=== PATIENT | male | born 1960 | race Caucasian/White ===

== ENCOUNTER 2016-11-20 00:56 | Emergency (ER) | payer SELFPAY ==
[2016-11-20 01:35] VITALS: BP 144/89
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
== END 2016-11-20 02:50 | disposition home or self-care (01) ==
LOC: ER 00:56
DX: F10.120 Alcohol abuse with intoxication, uncomplicated (principal); F17.200 Nicotine dependence, unspecified, uncomplicated; I10 Essential (primary) hypertension
CPT/HCPCS: 99283

== ENCOUNTER 2016-11-21 16:09 | Emergency (ER) | payer SELFPAY ==
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
[2016-11-21 16:56] LABS: APPEARANCE,URINE CLEAR; BILIRUBIN,URINE NEGATIVE (NEGATIVE); GLUCOSE, URINE NEGATIVE (NEGATIVE); KETONES,URINE NEGATIVE (NEGATIVE); LEUKOCYTE ESTERASE,URINE NEGATIVE (NEGATIVE); NITRITE,URINE NEGATIVE (NEGATIVE); PROTEIN,URINE NEGATIVE (NEGATIVE); URINE SPECIFIC GRAVITY 1.001; UROBILINOGEN,URINE NEGATIVE mg/dL (<2.0)
[2016-11-21 18:24] LABS: ABSOLUTE BASOPHILS # (AUTO) 0.1 10^3/uL (0.0-0.2); ABSOLUTE EOSINOPHILS # (AUTO) 0.2 10^3/uL (0.0-0.6); ABSOLUTE LYMPHOCYTES (AUTO) 2.6 10^3/uL (0.5-4.7); ABSOLUTE NEUT (AUTO) 5.4 10^3/uL (1.7-8.2); BASOPHILS % (AUTO) 0.7 % (0-2); EOSINOPHILS % (AUTO) 1.8 % (0-6); HEMATOCRIT 50.4 % (37.9-51.0); HEMOGLOBIN 17.2 g/dL (13.5-17.0); HGB HCT DIFFERENCE 1.2; LYMPHOCYTES % (AUTO) 28.6 % (13-45); MEAN CORPUSCULAR HEMOGLOBIN 33.4 pg (27.0-33.4); MEAN CORPUSCULAR HGB CONC 34.1 g/dL (32.0-36.0); MEAN CORPUSCULAR VOLUME 98 fl (80-97); MONOCYTES % (AUTO) 10.8 % (3-13); RED BLOOD COUNT 5.15 10^6/uL (4.35-5.55); RED CELL DISTRIBUTION WIDTH 14.8 % (11.5-14.0); SEGMENTED NEUTROPHILS % (AUTO) 58.1 % (42-78); WHITE BLOOD COUNT 9.3 10^3/uL (4.0-10.5)
[2016-11-21 18:39] LABS: ALANINE AMINOTRANSFERASE 111 U/L (21-72); ALCOHOL 133 mg/dL (NONE DETECTED); ALKALINE PHOSPHATASE 135 U/L (38-126); ANION GAP 16 (5-19); ASPARTATE AMINO TRANSFERASE 74 U/L (17-59); BILIRUBIN,TOTAL 0.7 mg/dL (0.2-1.3); BLOOD UREA NITROGEN 5 mg/dL (7-20); CALCIUM 10.1 mg/dL (8.4-10.2); CARBON DIOXIDE 26 mmol/L (22-30); CHLORIDE 102 mmol/L (98-107); CREATININE RESULT 0.82 mg/dL (0.52-1.25); GLUCOSE 90 mg/dL (75-110); POTASSIUM 4.4 mmol/L (3.6-5.0); SODIUM 143.9 mmol/L (137-145); TOTAL PROTEIN 8.2 g/dL (6.3-8.2)
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
[2016-11-21] MEDS ORDERED: ATENOLOL 50 MG TABLET PO SCH (22:00)
--- NOTE | 2016-11-22 08:26 | EKG REPORT ---
SEVERITY:- BORDERLINE ECG - SINUS RHYTHM PROBABLE LEFT ATRIAL ABNORMALITY : Confirmed by: Alva Pacheco 22-Nov-2016 08:25:40
--- NOTE | 2016-11-22 09:51 | ER Document Report ---
Doctor's Note Notes: 11/22/16 09:49 On a.m. rounds patient continues to report feelings of worthlessness and hopelessness though he is evasive about actual suicidal ideation and audio hallucinations. He denies visual hallucinations or homicidal ideation. Patient is calm and cooperative has no complex chest pain or shortness of breath or he does report eating last night upset the stomach he has no complaints of chest or abdominal pain at the moment Awaiting mental health evaluation
[2016-11-22] MEDS ORDERED: CHLORPROMAZINE HCL 50 MG TABLET PO SCH (10:00)
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
[2016-11-22 12:47] VITALS: BP 96/51
[2016-11-24 14:55] LABS: URINE METHADONE SCREEN NEGATIVE; URINE PHENCYCLIDINE SCREEN NEGATIVE
[2016-11-24 15:12] LABS: URINE BARBITURATES SCREEN NEGATIVE
== END 2016-11-22 13:23 | disposition home or self-care (01) ==
LOC: ER 16:09
DX: R45.851 Suicidal ideations (principal); F10.120 Alcohol abuse with intoxication, uncomplicated; I10 Essential (primary) hypertension; F17.200 Nicotine dependence, unspecified, uncomplicated; R45.850 Homicidal ideations; Z59.0 Homelessness
CPT/HCPCS: 93005; 99285; 36415; 80307 ×4; 85025; 80053; 81001; 93010; J3490

== ENCOUNTER 2016-12-04 21:49 | Emergency (ER) | payer SELFPAY ==
[2016-12-04 23:41] LABS: APPEARANCE,URINE CLEAR; BILIRUBIN,URINE NEGATIVE (NEGATIVE); GLUCOSE, URINE NEGATIVE (NEGATIVE); KETONES,URINE NEGATIVE (NEGATIVE); LEUKOCYTE ESTERASE,URINE NEGATIVE (NEGATIVE); NITRITE,URINE NEGATIVE (NEGATIVE); PROTEIN,URINE NEGATIVE (NEGATIVE); URINE SPECIFIC GRAVITY 1.008; UROBILINOGEN,URINE NEGATIVE mg/dL (<2.0)
[2016-12-04 23:43] LABS: ABSOLUTE BASOPHILS # (AUTO) 0.1 10^3/uL (0.0-0.2); ABSOLUTE EOSINOPHILS # (AUTO) 0.3 10^3/uL (0.0-0.6); ABSOLUTE LYMPHOCYTES (AUTO) 4.3 10^3/uL (0.5-4.7); ABSOLUTE NEUT (AUTO) 4.7 10^3/uL (1.7-8.2); BASOPHILS % (AUTO) 1.1 % (0-2); HEMATOCRIT 47.1 % (37.9-51.0); HEMOGLOBIN 16.1 g/dL (13.5-17.0); HGB HCT DIFFERENCE 1.2; LYMPHOCYTES % (AUTO) 41.1 % (13-45); MEAN CORPUSCULAR HEMOGLOBIN 33.7 pg (27.0-33.4); MEAN CORPUSCULAR HGB CONC 34.2 g/dL (32.0-36.0); MEAN CORPUSCULAR VOLUME 99 fl (80-97); MONOCYTES % (AUTO) 9.3 % (3-13); RED BLOOD COUNT 4.77 10^6/uL (4.35-5.55); RED CELL DISTRIBUTION WIDTH 14.4 % (11.5-14.0); SEGMENTED NEUTROPHILS % (AUTO) 45.5 % (42-78); WHITE BLOOD COUNT 10.4 10^3/uL (4.0-10.5)
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
[2016-12-04] MEDS ORDERED: QUETIAPINE FUMARATE 25 MG TABLET PO ONE (23:52)
[2016-12-04 23:55] LABS: ALANINE AMINOTRANSFERASE 122 U/L (21-72); ALBUMIN 4.9 g/dL (3.5-5.0); ALCOHOL 188 mg/dL (NONE DETECTED); ALKALINE PHOSPHATASE 123 U/L (38-126); ANION GAP 18 (5-19); ASPARTATE AMINO TRANSFERASE 75 U/L (17-59); BILIRUBIN,TOTAL 0.8 mg/dL (0.2-1.3); BLOOD UREA NITROGEN 7 mg/dL (7-20); CALCIUM 9.2 mg/dL (8.4-10.2); CARBON DIOXIDE 21 mmol/L (22-30); CHLORIDE 105 mmol/L (98-107); CREATININE RESULT 0.95 mg/dL (0.52-1.25); GLUCOSE 123 mg/dL (75-110); POTASSIUM 3.8 mmol/L (3.6-5.0); SODIUM 143.9 mmol/L (137-145); TOTAL PROTEIN 7.8 g/dL (6.3-8.2)
[2016-12-05] LABS: URINE BARBITURATES SCREEN UNCONFIRMED POSITIVE; URINE METHADONE SCREEN NEGATIVE; URINE PHENCYCLIDINE SCREEN NEGATIVE
--- NOTE | 2016-12-05 11:02 | EKG REPORT ---
SEVERITY:- NORMAL ECG - SINUS RHYTHM : Confirmed by: Stevenson Rodriguez MD 05-Dec-2016 11:01:48
[2016-12-05 12:24] VITALS: BP 143/83
--- NOTE | 2016-12-05 13:06 | PSYCHOLOGICAL NOTE ---
Psych Note - Psych Note Psych Note: Patient presented to [facility] ED with a past self reported medical history including bipolar disorder and schizophrenia. Currently, patient is complaining of suicidal ideation onset 3 days ago. Patient reports that he tried to kill himself by walking into traffic but everyone stopped. Patient states he "doesn't feel like living anymore." He continued disclosed that he attempted to walk into traffic however the vehicle slid out of his way. Patient states that he was just released from [facility] for substance abuse last week and that it was "great." He continued disclosed that he thinks he needs to go back. He was unable to identify what led to him taking the first drink again after detox. Patient appears to be more focused on where he will be staying versus sobriety. I Patient is alert and orientated to person, place, time and circumstance. Mood is irritable with congruent affect. Patient endorses suicidal ideations stating he tried jumping in front of a moving vehicle, but they moved out of the way. Patient denies auditory and visual hallucinations; no delusions are noted. Thought processes were goal oriented towards remaining in the ER or inpatient for substance abuse. Conversational speech was within normal rate, tone, and prosody. Intellectual abilities were estimated within average range. Attention and focus were fair. Insight, judgment, and impulse control were poor. 305.0 (F10.1) Unspecified Alcohol Use Disorder Patient is psychiatrically cleared for discharge. Patient has recently been released from [facility] after a week of alcohol abuse. Patient is unable to identify why he started drinking again. Patient was advised that sobriety is voluntary and that any mental health difficulties can not be correctly address if the patient is under the influence. Clinician provided pyschoeducation on alcohol being a depressant and the effects. The patient is currently homeless and has been homeless for multiple years; address listed on the [place] [employer] [employer] is homeless behind [place] [address]. Patient is demonstrating using inappropriate resources as temporary shelters; this is seen with last weeks stay at [facility] but drinking immediately upon release and using the ED when temps are at the coldest of the season. It is noted that patient was seen on 11/21/2015 with identical complaints however escalated is report from thinking of jumping into traffic into stating that he did but the traffic moved out of his way. At this time there is no evidence to support the patient' s self-report of walking into traffic as there are no witnesses to this. Patient identifies scabs on his arm were from falling down while intoxicated. I have consulted with Dr. Groves in regards to the care and management of this person. ED MD is in agreement with disposition and recommendations.
--- NOTE | 2016-12-05 13:11 | ER Document Report ---
Doctor's Note Notes: 12/05/16 13:09 Rounds: Chart reviewed and patient not interviewed because he is sleeping and I didn't wish to disturb him. Vital signs are normal. Lab studies on admission showed an alcohol level of 188 and some minor elevation of the patient's LFTs. Otherwise his initial lab work was unremarkable. Patient is medically stable for transfer or discharge. Patient was given a dose of Seroquel last evening and has been able to sleep and no longer feels suicidal. Alfredo Green M.D.
== END 2016-12-05 14:36 | disposition home or self-care (01) ==
LOC: ER 21:49
DX: R45.851 Suicidal ideations (principal); F10.120 Alcohol abuse with intoxication, uncomplicated; F19.10 Other psychoactive substance abuse, uncomplicated; F17.210 Nicotine dependence, cigarettes, uncomplicated
CPT/HCPCS: 36415; 80053; 80307; 81001; 85025; 93005; 93010; 99285

== ENCOUNTER 2017-07-03 11:05 | Emergency (ER) | payer SELFPAY ==
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
[2017-07-03] MEDS ORDERED: CHLORPROMAZINE HCL INJ 25 MG/1 ML AMPULE IM ONE (11:48)
[2017-07-03] MEDS ORDERED: BENZTROPINE MESYLATE INJ 2 MG/2 ML AMPULE IM ONE (11:50)
[2017-07-03 11:52] LABS: ABSOLUTE BASOPHILS # (AUTO) 0.1 10^3/uL (0.0-0.2); ABSOLUTE EOSINOPHILS # (AUTO) 0.2 10^3/uL (0.0-0.6); ABSOLUTE LYMPHOCYTES (AUTO) 3.4 10^3/uL (0.5-4.7); ABSOLUTE MONOCYTES (AUTO) 0.8 10^3/uL (0.1-1.4); ABSOLUTE NEUT (AUTO) 7.3 10^3/uL (1.7-8.2); BASOPHILS % (AUTO) 1.1 % (0-2); EOSINOPHILS % (AUTO) 1.6 % (0-6); HEMATOCRIT 43.9 % (37.9-51.0); HEMOGLOBIN 15.5 g/dL (13.5-17.0); HGB HCT DIFFERENCE 2.6; LYMPHOCYTES % (AUTO) 28.5 % (13-45); MEAN CORPUSCULAR HEMOGLOBIN 34.5 pg (27.0-33.4); MEAN CORPUSCULAR HGB CONC 35.3 g/dL (32.0-36.0); MEAN CORPUSCULAR VOLUME 98 fl (80-97); MONOCYTES % (AUTO) 7.1 % (3-13); RED BLOOD COUNT 4.49 10^6/uL (4.35-5.55); RED CELL DISTRIBUTION WIDTH 13.1 % (11.5-14.0); SEGMENTED NEUTROPHILS % (AUTO) 61.7 % (42-78); WHITE BLOOD COUNT 11.9 10^3/uL (4.0-10.5)
[2017-07-03 12:05] LABS: ALANINE AMINOTRANSFERASE 30 U/L (21-72); ALBUMIN 4.4 g/dL (3.5-5.0); ALCOHOL 189 mg/dL (NONE DETECTED); ALKALINE PHOSPHATASE 136 U/L (38-126); ANION GAP 16 (5-19); ASPARTATE AMINO TRANSFERASE 28 U/L (17-59); BILIRUBIN,DIRECT 0.4 mg/dL (0.0-0.4); BILIRUBIN,TOTAL 0.6 mg/dL (0.2-1.3); BLOOD UREA NITROGEN 9 mg/dL (7-20); CALCIUM 9.6 mg/dL (8.4-10.2); CARBON DIOXIDE 20 mmol/L (22-30); CHLORIDE 106 mmol/L (98-107); CREATININE RESULT 0.94 mg/dL (0.52-1.25); GLUCOSE 103 mg/dL (75-110); POTASSIUM 3.7 mmol/L (3.6-5.0); TOTAL PROTEIN 7.7 g/dL (6.3-8.2)
[2017-07-03] MEDS ORDERED: BENZTROPINE MESYLATE 1 MG TABLET PO SCH (17:00)
[2017-07-03] MEDS ORDERED: CHLORPROMAZINE HCL 50 MG TABLET PO SCH (17:00)
[2017-07-04 05:47] LABS: APPEARANCE,URINE SLIGHTLY-CLOUDY; BILIRUBIN,URINE NEGATIVE (NEGATIVE); CALCIUM OXALATE CRYSTALS,URINE FEW /HPF; GLUCOSE, URINE NEGATIVE (NEGATIVE); KETONES,URINE NEGATIVE (NEGATIVE); LEUKOCYTE ESTERASE,URINE NEGATIVE (NEGATIVE); NITRITE,URINE NEGATIVE (NEGATIVE); PROTEIN,URINE NEGATIVE (NEGATIVE); URINE SPECIFIC GRAVITY 1.023; UROBILINOGEN,URINE NEGATIVE mg/dL (<2.0)
[2017-07-04 05:55] LABS: URINE BARBITURATES SCREEN NEGATIVE; URINE METHADONE SCREEN NEGATIVE; URINE OPIATES LOW NEGATIVE; URINE PHENCYCLIDINE SCREEN NEGATIVE
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
--- NOTE | 2017-07-04 07:52 | EKG REPORT ---
SEVERITY:- OTHERWISE NORMAL ECG - SINUS TACHYCARDIA : Confirmed by: Stevenson Rodriguez MD 04-Jul-2017 07:52:03
--- NOTE | 2017-07-04 09:36 | ER Document Report ---
Doctor's Note Notes: 07/04/17 09:35 As the rounding physician for our psychiatric patients, I have reviewed the chart, vitals, lab work. Patient has been examined and noted to be watching television eating breakfast, patient is appreciative of his care here. I am awaiting mental health in [place].
[2017-07-04 10:21] VITALS: BP 139/75
== END 2017-07-04 10:21 | disposition home or self-care (01) ==
LOC: ER 11:05
DX: F10.10 Alcohol abuse, uncomplicated (principal)
CPT/HCPCS: 36415; 80053; 80307; 81001; 85025; 93005; 93010; 99284

== ENCOUNTER 2017-07-07 14:53 | Emergency (ER) | payer SELFPAY ==
[2017-07-07 17:00] LABS: ABSOLUTE BASOPHILS # (AUTO) 0.1 10^3/uL (0.0-0.2); ABSOLUTE EOSINOPHILS # (AUTO) 0.2 10^3/uL (0.0-0.6); ABSOLUTE LYMPHOCYTES (AUTO) 1.8 10^3/uL (0.5-4.7); ABSOLUTE MONOCYTES (AUTO) 0.4 10^3/uL (0.1-1.4); ABSOLUTE NEUT (AUTO) 3.9 10^3/uL (1.7-8.2); BASOPHILS % (AUTO) 0.9 % (0-2); EOSINOPHILS % (AUTO) 3.3 % (0-6); HEMATOCRIT 41.3 % (37.9-51.0); HEMOGLOBIN 14.2 g/dL (13.5-17.0); HGB HCT DIFFERENCE 1.3; LYMPHOCYTES % (AUTO) 27.9 % (13-45); MEAN CORPUSCULAR HEMOGLOBIN 34.5 pg (27.0-33.4); MEAN CORPUSCULAR HGB CONC 34.5 g/dL (32.0-36.0); MEAN CORPUSCULAR VOLUME 100 fl (80-97); MONOCYTES % (AUTO) 6.5 % (3-13); RED BLOOD COUNT 4.13 10^6/uL (4.35-5.55); SEGMENTED NEUTROPHILS % (AUTO) 61.4 % (42-78); WHITE BLOOD COUNT 6.3 10^3/uL (4.0-10.5)
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
[2017-07-07 17:30] LABS: ALANINE AMINOTRANSFERASE 31 U/L (21-72); ALBUMIN 4.2 g/dL (3.5-5.0); ALCOHOL 187 mg/dL (NONE DETECTED); ALKALINE PHOSPHATASE 103 U/L (38-126); ANION GAP 14 (5-19); ASPARTATE AMINO TRANSFERASE 34 U/L (17-59); BILIRUBIN,DIRECT 0.4 mg/dL (0.0-0.4); BILIRUBIN,TOTAL 0.5 mg/dL (0.2-1.3); BLOOD UREA NITROGEN 6 mg/dL (7-20); CALCIUM 8.9 mg/dL (8.4-10.2); CARBON DIOXIDE 19 mmol/L (22-30); CHLORIDE 108 mmol/L (98-107); CREATININE RESULT 0.74 mg/dL (0.52-1.25); GLUCOSE 139 mg/dL (75-110); POTASSIUM 3.6 mmol/L (3.6-5.0)
[2017-07-07 17:37] LABS: APPEARANCE,URINE CLEAR; BILIRUBIN,URINE NEGATIVE (NEGATIVE); GLUCOSE, URINE NEGATIVE (NEGATIVE); KETONES,URINE NEGATIVE (NEGATIVE); LEUKOCYTE ESTERASE,URINE NEGATIVE (NEGATIVE); NITRITE,URINE NEGATIVE (NEGATIVE); PROTEIN,URINE NEGATIVE (NEGATIVE); URINE SPECIFIC GRAVITY 1.003; UROBILINOGEN,URINE NEGATIVE mg/dL (<2.0)
[2017-07-07 17:55] LABS: URINE BARBITURATES SCREEN NEGATIVE; URINE METHADONE SCREEN NEGATIVE; URINE PHENCYCLIDINE SCREEN NEGATIVE
[2017-07-07 17:57] LABS: URINE OPIATES LOW NEGATIVE
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
--- NOTE | 2017-07-07 21:48 | EKG REPORT ---
SEVERITY:- BORDERLINE ECG - SINUS RHYTHM BORDERLINE PROLONGED QT INTERVAL : Confirmed by: Alva Pacheco 07-Jul-2017 21:47:50
[2017-07-08 10:43] VITALS: BP 157/75
== END 2017-07-08 10:43 | disposition home or self-care (01) ==
LOC: ER 14:53
DX: F10.220 Alcohol dependence with intoxication, uncomplicated (principal); Y90.6 Blood alcohol level of 120-199 mg/100 ml; F20.9 Schizophrenia, unspecified; T43.596A Underdosing of other antipsychotics and neuroleptics, initial encounter; T43.3X6A Underdosing of phenothiazine antipsychotics and neuroleptics, initial encounter; Z91.14 Patient's other noncompliance with medication regimen; I10 Essential (primary) hypertension
CPT/HCPCS: 36415; 80053; 80307; 81001; 85025; 93005; 93010; 99284

== ENCOUNTER 2017-10-15 23:01 | Emergency (ER) | payer SELFPAY ==
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
[2017-10-16] MEDS ORDERED: LIDOCAINE 1% INJ-PF (10 MG/ML) 30 ML SDV INJ ONE (00:04)
[2017-10-16] MEDS ORDERED: CEPHALEXIN 500 MG CAPSULE PO ONE (01:00)
[2017-10-16 01:38] VITALS: BP 140/87
== END 2017-10-16 01:37 | disposition home or self-care (01) ==
LOC: ER 23:01
PROC: 0HQ3XZZ Repair Left Ear Skin, External Approach (ICD-10-PCS; principal; 2017-10-15)
DX: S01.312A Laceration without foreign body of left ear, initial encounter (principal); X99.9XXA Assault by unspecified sharp object, initial encounter; F17.200 Nicotine dependence, unspecified, uncomplicated; I10 Essential (primary) hypertension
CPT/HCPCS: 99282; 12011; J3490

== ENCOUNTER 2017-10-27 10:37 | Emergency (ER) | payer SELFPAY ==
[2017-10-27 10:50] VITALS: BP 135/68
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
== END 2017-10-27 11:10 | disposition home or self-care (01) ==
LOC: ER 10:37
DX: S01.312D Laceration without foreign body of left ear, subsequent encounter (principal); X58.XXXD Exposure to other specified factors, subsequent encounter; I10 Essential (primary) hypertension; Z88.6 Allergy status to analgesic agent

== ENCOUNTER 2017-11-01 09:48 | Emergency (ER) | payer SELFPAY ==
[2017-11-01] MEDS ORDERED: NORMAL SALINE 1000 ML 1,000 ML IV ONE (10:06)
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
[2017-11-01] MEDS ORDERED: THIAMINE HCL 100 MG, FOLIC ACID 1 MG in NORMAL SALINE 250 ML IV ONE (10:29)
[2017-11-01 10:47] LABS: ABSOLUTE BASOPHILS # (AUTO) 0.1 10^3/uL (0.0-0.2); ABSOLUTE LYMPHOCYTES (AUTO) 2.4 10^3/uL (0.5-4.7); ABSOLUTE MONOCYTES (AUTO) 1.1 10^3/uL (0.1-1.4); ABSOLUTE NEUT (AUTO) 5.5 10^3/uL (1.7-8.2); BASOPHILS % (AUTO) 0.9 % (0-2); EOSINOPHILS % (AUTO) 0.4 % (0-6); HEMATOCRIT 44.3 % (37.9-51.0); HEMOGLOBIN 15.7 g/dL (13.5-17.0); HGB HCT DIFFERENCE 2.8; LYMPHOCYTES % (AUTO) 26.1 % (13-45); MEAN CORPUSCULAR HEMOGLOBIN 36.5 pg (27.0-33.4); MEAN CORPUSCULAR HGB CONC 35.4 g/dL (32.0-36.0); MEAN CORPUSCULAR VOLUME 103 fl (80-97); MONOCYTES % (AUTO) 12.6 % (3-13); RED BLOOD COUNT 4.29 10^6/uL (4.35-5.55); RED CELL DISTRIBUTION WIDTH 13.1 % (11.5-14.0); WHITE BLOOD COUNT 9.1 10^3/uL (4.0-10.5)
[2017-11-01 11:17] LABS: APPEARANCE,URINE CLEAR; BILIRUBIN,URINE NEGATIVE (NEGATIVE); GLUCOSE, URINE >=500 mg/dL (NEGATIVE); KETONES,URINE NEGATIVE (NEGATIVE); LEUKOCYTE ESTERASE,URINE NEGATIVE (NEGATIVE); NITRITE,URINE NEGATIVE (NEGATIVE); PROTEIN,URINE NEGATIVE (NEGATIVE); UROBILINOGEN,URINE NEGATIVE mg/dL (<2.0)
[2017-11-01] MEDS ORDERED: HALOPERIDOL 5 MG TABLET PO ONE (11:36)
[2017-11-01] MEDS ORDERED: LORAZEPAM INJ 2 MG/1 ML VIAL IV ONE (11:36)
[2017-11-01 11:43] LABS: URINE BARBITURATES SCREEN NEGATIVE; URINE METHADONE SCREEN NEGATIVE; URINE OPIATES LOW NEGATIVE; URINE PHENCYCLIDINE SCREEN NEGATIVE
[2017-11-01 11:55] LABS: ALANINE AMINOTRANSFERASE 55 U/L (21-72); ALBUMIN 4.1 g/dL (3.5-5.0); ALKALINE PHOSPHATASE 117 U/L (38-126); ANION GAP 16 (5-19); ASPARTATE AMINO TRANSFERASE 55 U/L (17-59); BILIRUBIN,DIRECT 0.2 mg/dL (0.0-0.4); BILIRUBIN,TOTAL 0.3 mg/dL (0.2-1.3); BLOOD UREA NITROGEN 8 mg/dL (7-20); CALCIUM 9.3 mg/dL (8.4-10.2); CARBON DIOXIDE 24 mmol/L (22-30); CHLORIDE 106 mmol/L (98-107); CREATININE RESULT 0.84 mg/dL (0.52-1.25); GLUCOSE 84 mg/dL (75-110); SODIUM 145.7 mmol/L (137-145); TOTAL PROTEIN 6.7 g/dL (6.3-8.2)
[2017-11-01 12:04] LABS: ALCOHOL 375 mg/dL (NONE DETECTED)
[2017-11-01 12:52] VITALS: BP 113/64
--- NOTE | 2017-11-01 13:02 | EKG REPORT ---
SEVERITY:- NORMAL ECG - SINUS RHYTHM : Confirmed by: Stevenson Rodriguez MD 01-Nov-2017 13:01:20
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
== END 2017-11-01 15:20 | disposition home or self-care (01) ==
LOC: ER 09:48
DX: F10.129 Alcohol abuse with intoxication, unspecified (principal); Y90.8 Blood alcohol level of 240 mg/100 ml or more; I10 Essential (primary) hypertension; R45.850 Homicidal ideations; F17.200 Nicotine dependence, unspecified, uncomplicated; Z88.6 Allergy status to analgesic agent; Z91.013 Allergy to seafood; Z91.048 Other nonmedicinal substance allergy status
CPT/HCPCS: 93005; 99284; 96361; 96374; 36415; 80307 ×4; 85025; 80053; 81001; 93010; J3490; J2060; J3411; J7030; J7050; 96365

== ENCOUNTER 2017-12-15 14:21 | Emergency (ER) | payer SELFPAY ==
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
[2017-12-15 15:25] LABS: ABSOLUTE BASOPHILS # (AUTO) 0.1 10^3/uL (0.0-0.2); ABSOLUTE EOSINOPHILS # (AUTO) 0.1 10^3/uL (0.0-0.6); ABSOLUTE LYMPHOCYTES (AUTO) 2.6 10^3/uL (0.5-4.7); ABSOLUTE MONOCYTES (AUTO) 0.9 10^3/uL (0.1-1.4); ABSOLUTE NEUT (AUTO) 6.3 10^3/uL (1.7-8.2); BASOPHILS % (AUTO) 0.5 % (0-2); EOSINOPHILS % (AUTO) 0.7 % (0-6); HEMATOCRIT 42.3 % (37.9-51.0); LYMPHOCYTES % (AUTO) 26.5 % (13-45); MEAN CORPUSCULAR HEMOGLOBIN 35.2 pg (27.0-33.4); MEAN CORPUSCULAR HGB CONC 35.5 g/dL (32.0-36.0); MEAN CORPUSCULAR VOLUME 99 fl (80-97); PLATELET COUNT 261 10^3/uL (150-450); RED BLOOD COUNT 4.27 10^6/uL (4.35-5.55); RED CELL DISTRIBUTION WIDTH 12.7 % (11.5-14.0); SEGMENTED NEUTROPHILS % (AUTO) 63.3 % (42-78); TOTAL CELLS COUNTED % (AUTO) 100 %
[2017-12-15 15:36] LABS: ALANINE AMINOTRANSFERASE 30 U/L (21-72); ALBUMIN 4.2 g/dL (3.5-5.0); ALKALINE PHOSPHATASE 110 U/L (38-126); ANION GAP 14 (5-19); ASPARTATE AMINO TRANSFERASE 39 U/L (17-59); BILIRUBIN,DIRECT 0.4 mg/dL (0.0-0.4); BILIRUBIN,TOTAL 0.5 mg/dL (0.2-1.3); BLOOD UREA NITROGEN 4 mg/dL (7-20); CARBON DIOXIDE 23 mmol/L (22-30); CHLORIDE 106 mmol/L (98-107); GLUCOSE 134 mg/dL (75-110); POTASSIUM 3.7 mmol/L (3.6-5.0); SODIUM 143.3 mmol/L (137-145); TOTAL PROTEIN 6.5 g/dL (6.3-8.2)
[2017-12-15 15:49] LABS: ALCOHOL 316 mg/dL (NONE DETECTED)
[2017-12-15 15:59] LABS: APPEARANCE,URINE CLEAR; BILIRUBIN,URINE NEGATIVE (NEGATIVE); COLOR,URINE COLORLESS; GLUCOSE, URINE 50 mg/dL (NEGATIVE); KETONES,URINE NEGATIVE (NEGATIVE); LEUKOCYTE ESTERASE,URINE NEGATIVE (NEGATIVE); NITRITE,URINE NEGATIVE (NEGATIVE); PROTEIN,URINE NEGATIVE (NEGATIVE); URINE SPECIFIC GRAVITY 1.002; UROBILINOGEN,URINE NEGATIVE mg/dL (<2.0)
[2017-12-15 16:10] LABS: URINE AMPHETAMINES SCREEN NEGATIVE; URINE BARBITURATES SCREEN NEGATIVE; URINE BENZODIAZEPINES SCREEN NEGATIVE; URINE COCAINE SCREEN NEGATIVE; URINE MARIJUANA (THC) SCREEN NEGATIVE; URINE METHADONE SCREEN NEGATIVE; URINE PHENCYCLIDINE SCREEN NEGATIVE
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
[2017-12-16] MEDS ORDERED: HYDROXYZINE PAMOATE 50 MG CAPSULE PO ONE (09:28)
--- NOTE | 2017-12-16 09:31 | ER Document Report ---
Doctor's Note Notes: 12/16/17 09:30 Rounds: Chart reviewed and patient interviewed. Patient complains of aching all over and diarrhea. He has a history of alcohol abuse. Labs were essentially normal except for an alcohol of 360. Vital signs all essentially normal. Not tachycardic or febrile. Patient appears to be medically stable for transfer or discharge. Mental health has assessed the patient and feels he can be discharged for outpatient follow-up. Alfredo Green MD
[2017-12-16 10:28] VITALS: BP 166/80
== END 2017-12-16 09:55 | disposition home or self-care (01) ==
LOC: ER 14:21
DX: F10.10 Alcohol abuse, uncomplicated (principal); Y90.8 Blood alcohol level of 240 mg/100 ml or more; R19.7 Diarrhea, unspecified; R45.850 Homicidal ideations; I10 Essential (primary) hypertension; F20.9 Schizophrenia, unspecified; F17.210 Nicotine dependence, cigarettes, uncomplicated; Z79.899 Other long term (current) drug therapy; Z88.6 Allergy status to analgesic agent; Z91.013 Allergy to seafood
CPT/HCPCS: 36415; 80053; 80307; 81001; 84443; 85025; 99285

== ENCOUNTER 2017-12-31 11:51 | Emergency (ER) | payer SELFPAY ==
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
[2017-12-31 12:39] LABS: ABSOLUTE BASOPHILS # (AUTO) 0.1 10^3/uL (0.0-0.2); ABSOLUTE LYMPHOCYTES (AUTO) 2.1 10^3/uL (0.5-4.7); ABSOLUTE MONOCYTES (AUTO) 0.9 10^3/uL (0.1-1.4); ABSOLUTE NEUT (AUTO) 5.5 10^3/uL (1.7-8.2); BASOPHILS % (AUTO) 1.1 % (0-2); EOSINOPHILS % (AUTO) 0.5 % (0-6); HEMOGLOBIN 14.9 g/dL (13.5-17.0); MEAN CORPUSCULAR HEMOGLOBIN 35.4 pg (27.0-33.4); MEAN CORPUSCULAR HGB CONC 35.6 g/dL (32.0-36.0); MEAN CORPUSCULAR VOLUME 99 fl (80-97); MONOCYTES % (AUTO) 10.5 % (3-13); PLATELET COUNT 367 10^3/uL (150-450); RED BLOOD COUNT 4.22 10^6/uL (4.35-5.55); RED CELL DISTRIBUTION WIDTH 13.8 % (11.5-14.0); SEGMENTED NEUTROPHILS % (AUTO) 63.9 % (42-78); TOTAL CELLS COUNTED % (AUTO) 100 %; WHITE BLOOD COUNT 8.7 10^3/uL (4.0-10.5)
[2017-12-31 12:43] LABS: APPEARANCE,URINE CLEAR; BILIRUBIN,URINE NEGATIVE (NEGATIVE); COLOR,URINE YELLOW; GLUCOSE, URINE 50 mg/dL (NEGATIVE); KETONES,URINE NEGATIVE (NEGATIVE); LEUKOCYTE ESTERASE,URINE NEGATIVE (NEGATIVE); NITRITE,URINE NEGATIVE (NEGATIVE); PROTEIN,URINE NEGATIVE (NEGATIVE); URINE SPECIFIC GRAVITY 1.006; UROBILINOGEN,URINE NEGATIVE mg/dL (<2.0)
[2017-12-31 12:54] LABS: ALANINE AMINOTRANSFERASE 52 U/L (21-72); ALBUMIN 3.9 g/dL (3.5-5.0); ALCOHOL 298 mg/dL (NONE DETECTED); ALKALINE PHOSPHATASE 124 U/L (38-126); ANION GAP 14 (5-19); ASPARTATE AMINO TRANSFERASE 45 U/L (17-59); BILIRUBIN,DIRECT 0.1 mg/dL (0.0-0.4); BILIRUBIN,TOTAL 0.3 mg/dL (0.2-1.3); BLOOD UREA NITROGEN 3 mg/dL (7-20); CALCIUM 9.1 mg/dL (8.4-10.2); CARBON DIOXIDE 23 mmol/L (22-30); CHLORIDE 107 mmol/L (98-107); GLUCOSE 92 mg/dL (75-110); TOTAL PROTEIN 6.1 g/dL (6.3-8.2)
[2017-12-31 12:55] LABS: ACETAMINOPHEN < 10 ug/mL (10-30); SALICYLATE < 1.0 mg/dL (2.0-20.0)
--- NOTE | 2017-12-31 13:01 | EKG REPORT ---
SEVERITY:- OTHERWISE NORMAL ECG - SINUS TACHYCARDIA : Confirmed by: Alva Pacheco 31-Dec-2017 13:01:21
[2017-12-31 13:02] LABS: URINE AMPHETAMINES SCREEN NEGATIVE; URINE BARBITURATES SCREEN NEGATIVE; URINE BENZODIAZEPINES SCREEN NEGATIVE; URINE COCAINE SCREEN NEGATIVE; URINE MARIJUANA (THC) SCREEN NEGATIVE; URINE METHADONE SCREEN NEGATIVE; URINE PHENCYCLIDINE SCREEN NEGATIVE
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
[2017-12-31] MEDS ORDERED: LORAZEPAM 1 MG TABLET PO PRN (14:58)
[2017-12-31] MEDS ORDERED: ATENOLOL 50 MG TABLET PO SCH (16:15)
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
[2017-12-31] MEDS ORDERED: QUETIAPINE FUMARATE 25 MG TABLET PO SCH (22:00)
[2017-12-31] MEDS ORDERED: TRAZODONE HCL 50 MG TABLET PO SCH (22:00)
--- NOTE | 2018-01-01 08:50 | PSYCHOLOGICAL NOTE ---
Psych Note - Psych Note Psych Note: Reason for consult: suicidal/homicidal ideation; alcohol abuse Consent Permissions: none given This is a 57-year-old man with a history of alcohol abuse and psychosis who presents to the emergency room depressed, tearful and emotionally labile. Patient does have alcohol on his breath. Clinician contacted the [facility]; no beds are currently available. Check in conducted Patient disclosed he he is "terrible this morning." Patient hears another patient yelling out and stated "I thought I had a bad that reminds me I am not that bad off." Clinician discussed with patient that currently [facility] does not have any beds available. Patient stated he understood that he would be difficult to get in. Patient disclosed he has been there twice previous and the staff is very nice there. He continued disclosed that he no longer has a phone to call them every morning. Clinician advised patient he can use the phone in the lobby to call the [facility] to see if they have a bed available and asked if the patient still had paperwork he received on his last visit that contained the number to the [facility]. Patient stated that he did not have the paperwork that it might be at his mother's home. Clinician stated that the patient will receive that information again; patient thanked clinician. Patient stated that he is hopeful he can get into treatment. 303.90 (F10.20) Alcohol Abuse; severe per history R/O Bipolar Disorder- Unable to determine due to alcohol abuse; severe. Impression/Plan: Patient is considered psychiatrically clear. Patient does not meet criteria for IVC per [place] GS 122C. Patient is known to this clinician and has seen the patient on multiple occasions where he comes in making vague homicidal/suicidal comments while intoxicated. Today patient discloses feeling poorly however he has no plans, means or intent to any suicidal or homicidal ideation. Patient shows good insight and judgment when coming to [facility] ED as a way to calm down and not engage in violence. He patient is chronic homeless; address listed on the [place] Sex Offender Registry is homeless behind [address] on [address]. Patient has been provided substance abuse packet on multiple occasions. Patient has again received this information packet. There are currently no beds available at the [facility]. Patient understands he needs to call every morning to see if there is availability. Patient is recommended to follow up with his provider [facility] for his substance abuse and mental health treatment. I consulted with Dr. Groves in regards to the care and management of this patient.
--- NOTE | 2018-01-01 09:31 | ER Document Report ---
Doctor's Note Notes: 01/01/18 09:30 Rounds: Chart reviewed. Patient interviewed. Says he is ready to leave. Feels better. Labs were all unremarkable except for his blood alcohol of 298. Vital signs are all normal. Patient appears to be medically stable for transfer or discharge. Patient has been assessed by mental health and they feel he can be discharged. Alfredo Green MD
[2018-01-01 09:32] VITALS: BP 140/62
== END 2018-01-01 09:31 | disposition home or self-care (01) ==
LOC: ER 11:51
DX: F10.10 Alcohol abuse, uncomplicated (principal); F20.9 Schizophrenia, unspecified; F31.9 Bipolar disorder, unspecified; I10 Essential (primary) hypertension; Z79.899 Other long term (current) drug therapy; F17.200 Nicotine dependence, unspecified, uncomplicated
CPT/HCPCS: 36415; 80053; 80307; 81001; 85025; 93005; 93010; 99285

== ENCOUNTER 2018-01-03 16:52 | Emergency (ER) | payer SELFPAY ==
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
[2018-01-03] MEDS ORDERED: ZIPRASIDONE MESYLATE INJ/PF 20 MG SDV IM ONE (18:25)
[2018-01-03 19:50] LABS: ABSOLUTE BASOPHILS # (AUTO) 0.1 10^3/uL (0.0-0.2); ABSOLUTE EOSINOPHILS # (AUTO) 0.2 10^3/uL (0.0-0.6); ABSOLUTE LYMPHOCYTES (AUTO) 2.7 10^3/uL (0.5-4.7); ABSOLUTE MONOCYTES (AUTO) 0.5 10^3/uL (0.1-1.4); ABSOLUTE NEUT (AUTO) 4.8 10^3/uL (1.7-8.2); BASOPHILS % (AUTO) 0.6 % (0-2); EOSINOPHILS % (AUTO) 2.1 % (0-6); HEMATOCRIT 40.5 % (37.9-51.0); HEMOGLOBIN 13.9 g/dL (13.5-17.0); LYMPHOCYTES % (AUTO) 33.2 % (13-45); MEAN CORPUSCULAR HEMOGLOBIN 34.8 pg (27.0-33.4); MEAN CORPUSCULAR HGB CONC 34.4 g/dL (32.0-36.0); MEAN CORPUSCULAR VOLUME 101 fl (80-97); MONOCYTES % (AUTO) 5.8 % (3-13); PLATELET COUNT 232 10^3/uL (150-450); RED CELL DISTRIBUTION WIDTH 14.2 % (11.5-14.0); SEGMENTED NEUTROPHILS % (AUTO) 58.3 % (42-78); TOTAL CELLS COUNTED % (AUTO) 100 %; WHITE BLOOD COUNT 8.3 10^3/uL (4.0-10.5)
[2018-01-03 20:09] LABS: ALANINE AMINOTRANSFERASE 48 U/L (21-72); ALBUMIN 3.5 g/dL (3.5-5.0); ALKALINE PHOSPHATASE 122 U/L (38-126); ANION GAP 15 (5-19); ASPARTATE AMINO TRANSFERASE 39 U/L (17-59); BILIRUBIN,DIRECT 0.1 mg/dL (0.0-0.4); BILIRUBIN,TOTAL 0.1 mg/dL (0.2-1.3); BLOOD UREA NITROGEN 7 mg/dL (7-20); CARBON DIOXIDE 20 mmol/L (22-30); CHLORIDE 112 mmol/L (98-107); GLUCOSE 126 mg/dL (75-110); POTASSIUM 3.5 mmol/L (3.6-5.0); SODIUM 146.5 mmol/L (137-145); TOTAL PROTEIN 5.6 g/dL (6.3-8.2)
[2018-01-03 20:26] LABS: ACETAMINOPHEN < 10 ug/mL (10-30); SALICYLATE < 1.0 mg/dL (2.0-20.0)
[2018-01-03 20:29] LABS: ALCOHOL 330 mg/dL (NONE DETECTED)
[2018-01-03 22:27] LABS: APPEARANCE,URINE CLEAR; BILIRUBIN,URINE NEGATIVE (NEGATIVE); COLOR,URINE STRAW; GLUCOSE, URINE 50 mg/dL (NEGATIVE); KETONES,URINE NEGATIVE (NEGATIVE); LEUKOCYTE ESTERASE,URINE NEGATIVE (NEGATIVE); NITRITE,URINE NEGATIVE (NEGATIVE); PROTEIN,URINE NEGATIVE (NEGATIVE); URINE SPECIFIC GRAVITY 1.008; UROBILINOGEN,URINE NEGATIVE mg/dL (<2.0)
[2018-01-03 22:52] LABS: URINE AMPHETAMINES SCREEN NEGATIVE; URINE BARBITURATES SCREEN NEGATIVE; URINE BENZODIAZEPINES SCREEN NEGATIVE; URINE COCAINE SCREEN NEGATIVE; URINE MARIJUANA (THC) SCREEN NEGATIVE; URINE METHADONE SCREEN NEGATIVE; URINE PHENCYCLIDINE SCREEN NEGATIVE
[2018-01-04 07:37] VITALS: BP 146/76
--- NOTE | 2018-01-04 07:46 | EKG REPORT ---
SEVERITY:- BORDERLINE ECG - SINUS TACHYCARDIA NONSPECIFIC ST-T CHANGES LATERAL LEADS. : Confirmed by: Stevenson Rodriguez MD 04-Jan-2018 07:45:30
[2018-01-04] MEDS ORDERED: LORAZEPAM 1 MG TABLET PO ONE (08:57)
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
== END 2018-01-04 15:00 | disposition home or self-care (01) ==
LOC: ER 16:52
DX: F10.229 Alcohol dependence with intoxication, unspecified (principal); F31.9 Bipolar disorder, unspecified; R45.851 Suicidal ideations; I10 Essential (primary) hypertension; Z88.6 Allergy status to analgesic agent; Z91.013 Allergy to seafood; Z59.0 Homelessness
CPT/HCPCS: 93005; 99285; 96372; 36415; 80307 ×4; 85025; 80053; 81001; 93010; J3486

== ENCOUNTER 2018-03-06 17:44 | Emergency (ER) | payer SELFPAY ==
[2018-03-06 19:39] VITALS: BP 96/54
[2018-03-06] MEDS ORDERED: NORMAL SALINE 1000 ML 1,000 ML IV ONE (19:43)
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
[2018-03-06 20:21] LABS: APPEARANCE,URINE CLEAR; BILIRUBIN,URINE NEGATIVE (NEGATIVE); COLOR,URINE STRAW; GLUCOSE, URINE NEGATIVE (NEGATIVE); KETONES,URINE NEGATIVE (NEGATIVE); LEUKOCYTE ESTERASE,URINE NEGATIVE (NEGATIVE); NITRITE,URINE NEGATIVE (NEGATIVE); PROTEIN,URINE NEGATIVE (NEGATIVE); URINE SPECIFIC GRAVITY 1.004; UROBILINOGEN,URINE NEGATIVE mg/dL (<2.0)
[2018-03-06 20:22] LABS: ABSOLUTE BASOPHILS # (AUTO) 0.1 10^3/uL (0.0-0.2); ABSOLUTE EOSINOPHILS # (AUTO) 0.2 10^3/uL (0.0-0.6); ABSOLUTE LYMPHOCYTES (AUTO) 2.6 10^3/uL (0.5-4.7); ABSOLUTE MONOCYTES (AUTO) 1.4 10^3/uL (0.1-1.4); ABSOLUTE NEUT (AUTO) 5.4 10^3/uL (1.7-8.2); BASOPHILS % (AUTO) 0.9 % (0-2); EOSINOPHILS % (AUTO) 2.3 % (0-6); HEMOGLOBIN 15.2 g/dL (13.5-17.0); LYMPHOCYTES % (AUTO) 27.2 % (13-45); MEAN CORPUSCULAR HEMOGLOBIN 37.4 pg (27.0-33.4); MEAN CORPUSCULAR HGB CONC 35.3 g/dL (32.0-36.0); MEAN CORPUSCULAR VOLUME 106 fl (80-97); MONOCYTES % (AUTO) 14.2 % (3-13); PLATELET COUNT 403 10^3/uL (150-450); RED BLOOD COUNT 4.06 10^6/uL (4.35-5.55); RED CELL DISTRIBUTION WIDTH 13.8 % (11.5-14.0); SEGMENTED NEUTROPHILS % (AUTO) 55.4 % (42-78); TOTAL CELLS COUNTED % (AUTO) 100 %; WHITE BLOOD COUNT 9.7 10^3/uL (4.0-10.5)
--- NOTE | 2018-03-06 20:34 | RADIOLOGY REPORT (SQ) ---
EXAM DESCRIPTION: CHEST 2 VIEWS COMPLETED DATE/TIME: 03/06/2018 8:13 pm REASON FOR STUDY: hypotensive; eval pneumonia COMPARISON: 10/09/2013 EXAM PARAMETERS: NUMBER OF VIEWS: two views TECHNIQUE: Digital Frontal and Lateral radiographic views of the chest acquired. RADIATION DOSE: NA LIMITATIONS: none FINDINGS: LUNGS AND PLEURA: No consolidation, masses or pneumothorax. No pleural effusion. MEDIASTINUM AND HILAR STRUCTURES: No masses or contour abnormalities. HEART AND VASCULAR STRUCTURES: Heart normal size. No evidence for failure. BONES: No acute findings. HARDWARE: None in the chest. OTHER: No other significant finding. IMPRESSION: NO ACUTE RADIOGRAPHIC FINDING IN THE CHEST. TECHNICAL DOCUMENTATION: JOB ID: [id number] [place]-72 2010 [employer]- All Rights Reserved Reading location - IP/workstation name: [email or web address]
--- NOTE | 2018-03-06 20:36 | RADIOLOGY REPORT (SQ) ---
EXAM DESCRIPTION: CT HEAD WITHOUT COMPLETED DATE/TIME: 03/06/2018 8:24 pm REASON FOR STUDY: s/p fall; c/o PEREZ neck pain lightheaded COMPARISON: 03/13/2014 TECHNIQUE: Axial images acquired through the brain without intravenous contrast. Images reviewed wi th bone, brain and subdural windows. Images stored on PACS. All CT scanners at this facility use dose modulation, iterative reconstruction, and/or weight based d osing when appropriate to reduce radiation dose to as low as reasonably achievable (ALARA). [facility]: Dose Right [facility]: CareDose [facility]: Dose Right [facility]: Teradose 4D [facility]: [employer] RADIATION DOSE: CT Rad equipment meets quality standard of care and radiation dose reduction techniq ues were employed. CTDIvol: 53.2 mGy. DLP: 1044 mGy-cm. mGy. LIMITATIONS: None. FINDINGS: VENTRICLES: Normal size and contour. CEREBRUM: No masses. No hemorrhage. No midline shift. No evidence for acute infarction. Normal gra y/white matter differentiation. No areas of low density in the white matter. CEREBELLUM: No masses. No hemorrhage. No alteration of density. No evidence for acute infarction. EXTRAAXIAL SPACES: No fluid collections. No masses. ORBITS AND GLOBE: No intra- or extraconal masses. Normal contour of globe without masses. CALVARIUM: No fracture. PARANASAL SINUSES: No fluid or mucosal thickening. SOFT TISSUES: No mass or hematoma. OTHER: No other significant finding. IMPRESSION: No acute intracranial findings. EVIDENCE OF ACUTE STROKE: NO. COMMENT: Quality ID # [id number]: Final reports with documentation of one or more dose reduction techniques (e.g., Automated exposure control, adjustment of the mA and/or kV according to patient size, use of iterative reconstruction technique) TECHNICAL DOCUMENTATION: JOB ID: [id number] [place]-72 2010 [employer]- All Rights Reserved Reading location - IP/workstation name: [email or web address]
--- NOTE | 2018-03-06 20:38 | RADIOLOGY REPORT (SQ) ---
EXAM DESCRIPTION: CT CERVICAL SPINE WITHOUT COMPLETED DATE/TIME: 03/06/2018 8:24 pm REASON FOR STUDY: s/p fall; c/o PEREZ neck pain lightheaded COMPARISON: None. TECHNIQUE: Axial images acquired through the cervical spine without intravenous contrast. Images re viewed with lung, soft tissue and bone windows. Reconstructed coronal and sagittal MPR images review ed. Images stored on PACS. All CT scanners at this facility use dose modulation, iterative reconstruction, and/or weight based d osing when appropriate to reduce radiation dose to as low as reasonably achievable (ALARA). [facility]: Dose Right [facility]: CareDose [facility]: Dose Right [facility]: Teradose 4D [facility]: [employer] RADIATION DOSE: CT Rad equipment meets quality standard of care and radiation dose reduction techniq ues were employed. CTDIvol: 18.3 mGy. DLP: 441 mGy-cm. mGy. LIMITATIONS: None. FINDINGS: ALIGNMENT: Anatomic. MINERALIZATION: Normal. VERTEBRAL BODIES: No fractures or dislocation. DISCS: Multilevel disc space narrowing with osteophytes. FACETS, LATERAL MASSES, POSTERIOR ELEMENTS: Facet arthropathy. No fractures. No dislocation. No ac te-moak findings. HARDWARE: None in the spine. VISUALIZED RIBS: No fractures. LUNG APICES AND SOFT TISSUES: No significant or acute findings. OTHER: No other significant finding. IMPRESSION: CHRONIC DEGENERATIVE CHANGES. NO ACUTE FINDINGS. TECHNICAL DOCUMENTATION: JOB ID: [id number] [place]-72 Quality ID # [id number]: Final reports with documentation of one or more dose reduction techniques (e.g., Au tomated exposure control, adjustment of the mA and/or kV according to patient size, use of iterative reconstruction technique) 2010 [employer]- All Rights Reserved Reading location - IP/workstation name: [email or web address]
[2018-03-06 20:39] LABS: ALANINE AMINOTRANSFERASE 223 U/L (21-72); ALBUMIN 3.7 g/dL (3.5-5.0); ALKALINE PHOSPHATASE 91 U/L (38-126); ANION GAP 12 (5-19); ASPARTATE AMINO TRANSFERASE 122 U/L (17-59); BILIRUBIN,DIRECT 0.2 mg/dL (0.0-0.4); BILIRUBIN,TOTAL 0.2 mg/dL (0.2-1.3); BLOOD UREA NITROGEN 10 mg/dL (7-20); CALCIUM 9.4 mg/dL (8.4-10.2); CARBON DIOXIDE 25 mmol/L (22-30); CHLORIDE 106 mmol/L (98-107); GLUCOSE 94 mg/dL (75-110); PHOSPHORUS 4.5 mg/dL (2.5-4.5); POTASSIUM 4.3 mmol/L (3.6-5.0); SODIUM 142.6 mmol/L (137-145); TOTAL PROTEIN 6.7 g/dL (6.3-8.2)
== END 2018-03-06 21:15 | disposition left against medical advice (07) ==
LOC: ER 17:44
DX: M54.2 Cervicalgia (principal); R51 Headache; R26.0 Ataxic gait; Y00.XXXA Assault by blunt object, initial encounter; J30.1 Allergic rhinitis due to pollen; R05 Cough; I10 Essential (primary) hypertension; Z79.899 Other long term (current) drug therapy; Z88.6 Allergy status to analgesic agent; Z91.013 Allergy to seafood; Z91.048 Other nonmedicinal substance allergy status; Z53.20 Procedure and treatment not carried out because of patient's decision for unspecified reasons
CPT/HCPCS: 36415; 70450; 71046; 72125; 80053; 81001; 83605; 83735; 84100; 85025; 87040; 99281

== ENCOUNTER 2018-05-04 13:50 | Emergency (ER) | payer SELFPAY ==
[2018-05-04 14:05] VITALS: BP 142/75
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
== END 2018-05-04 14:46 | disposition home or self-care (01) ==
LOC: ER 13:50
DX: K11.5 Sialolithiasis (principal); R68.84 Jaw pain; I10 Essential (primary) hypertension; J34.89 Other specified disorders of nose and nasal sinuses; Z88.6 Allergy status to analgesic agent; Z91.013 Allergy to seafood; Z91.048 Other nonmedicinal substance allergy status
CPT/HCPCS: 99283

== ENCOUNTER 2018-05-25 08:18 | Emergency (ER) | payer SELFPAY ==
[2018-05-25 08:24] VITALS: BP 144/77
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
[2018-05-25] MEDS ORDERED: HYDROCORTISONE ACETATE 25 MG SUPP.RECT PR ONE (08:54)
== END 2018-05-25 09:06 | disposition home or self-care (01) ==
LOC: ER 08:18
DX: K64.4 Residual hemorrhoidal skin tags (principal); F17.200 Nicotine dependence, unspecified, uncomplicated; I10 Essential (primary) hypertension; K21.9 Gastro-esophageal reflux disease without esophagitis; Z88.6 Allergy status to analgesic agent; Z91.013 Allergy to seafood
CPT/HCPCS: 99283; J3490

== ENCOUNTER 2018-07-14 20:13 | Emergency (ER) | payer SELFPAY ==
[2018-07-14 20:49] LABS: ABSOLUTE BASOPHILS # (AUTO) 0.1 10^3/uL (0.0-0.2); ABSOLUTE EOSINOPHILS # (AUTO) 0.3 10^3/uL (0.0-0.6); ABSOLUTE LYMPHOCYTES (AUTO) 3.5 10^3/uL (0.5-4.7); ABSOLUTE MONOCYTES (AUTO) 1.1 10^3/uL (0.1-1.4); ABSOLUTE NEUT (AUTO) 4.2 10^3/uL (1.7-8.2); EOSINOPHILS % (AUTO) 3.7 % (0-6); HEMATOCRIT 44.8 % (37.9-51.0); HEMOGLOBIN 15.5 g/dL (13.5-17.0); LYMPHOCYTES % (AUTO) 38.1 % (13-45); MEAN CORPUSCULAR HEMOGLOBIN 34.7 pg (27.0-33.4); MEAN CORPUSCULAR HGB CONC 34.7 g/dL (32.0-36.0); MEAN CORPUSCULAR VOLUME 100 fl (80-97); MONOCYTES % (AUTO) 11.9 % (3-13); PLATELET COUNT 283 10^3/uL (150-450); RED BLOOD COUNT 4.48 10^6/uL (4.35-5.55); RED CELL DISTRIBUTION WIDTH 13.8 % (11.5-14.0); SEGMENTED NEUTROPHILS % (AUTO) 45.3 % (42-78); TOTAL CELLS COUNTED % (AUTO) 100 %; WHITE BLOOD COUNT 9.2 10^3/uL (4.0-10.5)
[2018-07-14] MEDS ORDERED: HALOPERIDOL LACTATE INJ 5 MG/1 ML VIAL IM ONE (21:00)
[2018-07-14] MEDS ORDERED: LORAZEPAM INJ 2 MG/1 ML VIAL IM ONE (21:01)
[2018-07-14] MEDS ORDERED: DIPHENHYDRAMINE HCL 50 MG/ML VIAL IM ONE (21:01)
[2018-07-14 21:07] LABS: ALANINE AMINOTRANSFERASE 57 U/L (21-72); ALBUMIN 3.8 g/dL (3.5-5.0); ALKALINE PHOSPHATASE 109 U/L (38-126); ANION GAP 13 (5-19); ASPARTATE AMINO TRANSFERASE 44 U/L (17-59); BILIRUBIN,DIRECT 0.2 mg/dL (0.0-0.4); BILIRUBIN,TOTAL 0.2 mg/dL (0.2-1.3); BLOOD UREA NITROGEN 7 mg/dL (7-20); CALCIUM 8.2 mg/dL (8.4-10.2); CARBON DIOXIDE 20 mmol/L (22-30); CHLORIDE 114 mmol/L (98-107); GLUCOSE 146 mg/dL (75-110); POTASSIUM 3.9 mmol/L (3.6-5.0); SALICYLATE 1.3 mg/dL (2.0-20.0); SODIUM 146.7 mmol/L (137-145); TOTAL PROTEIN 6.8 g/dL (6.3-8.2)
[2018-07-14] MEDS ORDERED: DIPHENHYDRAMINE HCL 50 MG/ML VIAL ONE (21:12)
[2018-07-14 21:16] LABS: ACETAMINOPHEN < 10 ug/mL (10-30)
[2018-07-14 21:17] LABS: ALCOHOL 359 mg/dL (NONE DETECTED)
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
--- NOTE | 2018-07-15 07:40 | EKG REPORT ---
SEVERITY:- NORMAL ECG - SINUS RHYTHM : Confirmed by: Stevenson Rodriguez MD 15-Jul-2018 07:39:16
--- NOTE | 2018-07-15 09:58 | ER Document Report ---
Doctor's Note Notes: 07/15/18 09:58 Patient has been seen and evaluated resting comfortably no acute distress. Laboratory values previous provider note and vital signs have been evaluated. Patient otherwise looks to be stable for disposition/transfer.
[2018-07-15 10:07] LABS: APPEARANCE,URINE CLEAR; BILIRUBIN,URINE NEGATIVE (NEGATIVE); COLOR,URINE YELLOW; GLUCOSE, URINE NEGATIVE (NEGATIVE); KETONES,URINE NEGATIVE (NEGATIVE); LEUKOCYTE ESTERASE,URINE NEGATIVE (NEGATIVE); NITRITE,URINE NEGATIVE (NEGATIVE); PROTEIN,URINE NEGATIVE (NEGATIVE); URINE SPECIFIC GRAVITY 1.017; UROBILINOGEN,URINE NEGATIVE mg/dL (<2.0)
[2018-07-15 10:27] LABS: URINE AMPHETAMINES SCREEN NEGATIVE; URINE BARBITURATES SCREEN NEGATIVE; URINE BENZODIAZEPINES SCREEN NEGATIVE; URINE COCAINE SCREEN NEGATIVE; URINE MARIJUANA (THC) SCREEN NEGATIVE; URINE METHADONE SCREEN NEGATIVE; URINE PHENCYCLIDINE SCREEN NEGATIVE
[2018-07-15 12:12] VITALS: BP 137/74
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
== END 2018-07-15 12:12 | disposition home or self-care (01) ==
LOC: ER 20:13
DX: R45.850 Homicidal ideations (principal); R45.851 Suicidal ideations; R44.0 Auditory hallucinations; F10.929 Alcohol use, unspecified with intoxication, unspecified; I10 Essential (primary) hypertension; F20.9 Schizophrenia, unspecified; F31.9 Bipolar disorder, unspecified; F17.200 Nicotine dependence, unspecified, uncomplicated
CPT/HCPCS: 93005; 99284; 96372; 51702; 36415; 80307 ×4; 85025; 80053; 81001; 93010; J1200; J1630; J2060

== ENCOUNTER 2018-08-24 23:01 | Emergency (ER) | payer SELFPAY ==
[2018-08-24] MEDS ORDERED: NORMAL SALINE 1000 ML 1,000 ML IV ONE (23:16)
[2018-08-24] MEDS ORDERED: TAMSULOSIN HCL 0.4 MG CAP.SR.24H PO ONE (23:23)
[2018-08-24 23:25] VITALS: BP 126/75
[2018-08-24 23:34] LABS: ABSOLUTE BASOPHILS # (AUTO) 0.1 10^3/uL (0.0-0.2); ABSOLUTE EOSINOPHILS # (AUTO) 0.5 10^3/uL (0.0-0.6); ABSOLUTE LYMPHOCYTES (AUTO) 3.3 10^3/uL (0.5-4.7); ABSOLUTE MONOCYTES (AUTO) 1.2 10^3/uL (0.1-1.4); ABSOLUTE NEUT (AUTO) 7.1 10^3/uL (1.7-8.2); BASOPHILS % (AUTO) 0.5 % (0-2); EOSINOPHILS % (AUTO) 4.4 % (0-6); HEMATOCRIT 45.4 % (37.9-51.0); HEMOGLOBIN 15.7 g/dL (13.5-17.0); LYMPHOCYTES % (AUTO) 27.3 % (13-45); MEAN CORPUSCULAR HEMOGLOBIN 34.6 pg (27.0-33.4); MEAN CORPUSCULAR HGB CONC 34.5 g/dL (32.0-36.0); MEAN CORPUSCULAR VOLUME 100 fl (80-97); MONOCYTES % (AUTO) 9.7 % (3-13); PLATELET COUNT 337 10^3/uL (150-450); RED BLOOD COUNT 4.53 10^6/uL (4.35-5.55); RED CELL DISTRIBUTION WIDTH 13.4 % (11.5-14.0); SEGMENTED NEUTROPHILS % (AUTO) 58.1 % (42-78); TOTAL CELLS COUNTED % (AUTO) 100 %; WHITE BLOOD COUNT 12.2 10^3/uL (4.0-10.5)
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
[2018-08-25 00:01] LABS: ALANINE AMINOTRANSFERASE 39 U/L (21-72); ALBUMIN 3.2 g/dL (3.5-5.0); ALCOHOL 157 mg/dL (NONE DETECTED); ALKALINE PHOSPHATASE 91 U/L (38-126); ANION GAP 13 (5-19); ASPARTATE AMINO TRANSFERASE 35 U/L (17-59); BILIRUBIN,DIRECT 0.1 mg/dL (0.0-0.4); BILIRUBIN,TOTAL 0.4 mg/dL (0.2-1.3); BLOOD UREA NITROGEN 7 mg/dL (7-20); CALCIUM 8.8 mg/dL (8.4-10.2); CARBON DIOXIDE 20 mmol/L (22-30); CHLORIDE 105 mmol/L (98-107); GLUCOSE 113 mg/dL (75-110); POTASSIUM 3.8 mmol/L (3.6-5.0); SODIUM 137.7 mmol/L (137-145); TOTAL PROTEIN 5.9 g/dL (6.3-8.2)
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
== END 2018-08-25 | disposition home or self-care (01) ==
LOC: ER 23:01
DX: R10.30 Lower abdominal pain, unspecified (principal); F17.200 Nicotine dependence, unspecified, uncomplicated; I10 Essential (primary) hypertension; Z88.3 Allergy status to other anti-infective agents
CPT/HCPCS: 36415; 80053; 80307; 83690; 85025; 99284

== ENCOUNTER 2018-09-01 13:28 | Emergency (ER) | payer SELFPAY ==
[2018-09-01] MEDS ORDERED: SILVER SULFADIAZINE 1% CREAM 50 GM TP ONE (13:53)
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
[2018-09-01 14:58] VITALS: BP 163/96
== END 2018-09-01 14:58 | disposition home or self-care (01) ==
LOC: ER 13:28
DX: T22.212A Burn of second degree of left forearm, initial encounter (principal); X01.8XXA Other exposure to uncontrolled fire, not in building or structure, initial encounter; W40.1XXA Explosion of explosive gases, initial encounter; F17.200 Nicotine dependence, unspecified, uncomplicated; Z88.6 Allergy status to analgesic agent; Z91.013 Allergy to seafood; I10 Essential (primary) hypertension
CPT/HCPCS: 99283; J3490

== ENCOUNTER 2018-09-22 10:14 | Emergency (ER) | payer SELFPAY ==
[2018-09-22 10:36] VITALS: BP 137/88
[2018-09-22] MEDS ORDERED: LORAZEPAM INJ 2 MG/1 ML VIAL IM ONE (10:39)
[2018-09-22] MEDS ORDERED: ZIPRASIDONE MESYLATE INJ/PF 20 MG SDV IM ONE (10:39)
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
[2018-09-22 11:17] LABS: ABSOLUTE BASOPHILS # (AUTO) 0.1 10^3/uL (0.0-0.2); ABSOLUTE EOSINOPHILS # (AUTO) 0.3 10^3/uL (0.0-0.6); ABSOLUTE LYMPHOCYTES (AUTO) 3.1 10^3/uL (0.5-4.7); ABSOLUTE MONOCYTES (AUTO) 1.8 10^3/uL (0.1-1.4); BASOPHILS % (AUTO) 0.8 % (0-2); HEMATOCRIT 51.8 % (37.9-51.0); HEMOGLOBIN 17.9 g/dL (13.5-17.0); LYMPHOCYTES % (AUTO) 21.4 % (13-45); MEAN CORPUSCULAR HEMOGLOBIN 34.4 pg (27.0-33.4); MEAN CORPUSCULAR HGB CONC 34.6 g/dL (32.0-36.0); MEAN CORPUSCULAR VOLUME 100 fl (80-97); MONOCYTES % (AUTO) 12.7 % (3-13); PLATELET COUNT 342 10^3/uL (150-450); RED BLOOD COUNT 5.19 10^6/uL (4.35-5.55); RED CELL DISTRIBUTION WIDTH 13.3 % (11.5-14.0); SEGMENTED NEUTROPHILS % (AUTO) 63.1 % (42-78); TOTAL CELLS COUNTED % (AUTO) 100 %; WHITE BLOOD COUNT 14.3 10^3/uL (4.0-10.5)
[2018-09-22 11:20] LABS: APPEARANCE,URINE CLEAR; BILIRUBIN,URINE NEGATIVE (NEGATIVE); COLOR,URINE STRAW; GLUCOSE, URINE >=500 mg/dL (NEGATIVE); KETONES,URINE NEGATIVE (NEGATIVE); LEUKOCYTE ESTERASE,URINE NEGATIVE (NEGATIVE); NITRITE,URINE NEGATIVE (NEGATIVE); PROTEIN,URINE NEGATIVE (NEGATIVE); URINE SPECIFIC GRAVITY 1.003; UROBILINOGEN,URINE NEGATIVE mg/dL (<2.0)
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
[2018-09-22 11:35] LABS: URINE AMPHETAMINES SCREEN NEGATIVE; URINE BARBITURATES SCREEN NEGATIVE; URINE BENZODIAZEPINES SCREEN NEGATIVE; URINE COCAINE SCREEN NEGATIVE; URINE MARIJUANA (THC) SCREEN NEGATIVE; URINE METHADONE SCREEN NEGATIVE; URINE PHENCYCLIDINE SCREEN NEGATIVE
[2018-09-22 11:37] LABS: BLOOD UREA NITROGEN 5 mg/dL (7-20); CALCIUM 9.3 mg/dL (8.4-10.2); CARBON DIOXIDE 20 mmol/L (22-30); CHLORIDE 108 mmol/L (98-107); GLUCOSE 136 mg/dL (75-110); POTASSIUM 4.5 mmol/L (3.6-5.0)
[2018-09-22 11:38] LABS: ACETAMINOPHEN < 10 ug/mL (10-30); ALANINE AMINOTRANSFERASE 80 U/L (21-72); ALBUMIN 4.6 g/dL (3.5-5.0); ALKALINE PHOSPHATASE 120 U/L (38-126); ANION GAP 18 (5-19); ASPARTATE AMINO TRANSFERASE 71 U/L (17-59); BILIRUBIN,DIRECT 0.1 mg/dL (0.0-0.4); BILIRUBIN,TOTAL 0.3 mg/dL (0.2-1.3); SALICYLATE < 1.0 mg/dL (2.0-20.0); SODIUM 146.4 mmol/L (137-145); TOTAL PROTEIN 8.1 g/dL (6.3-8.2)
[2018-09-22 11:49] LABS: ALCOHOL 336 mg/dL (NONE DETECTED)
[2018-09-22] MEDS ORDERED: THIAMINE HCL 100 MG in NORMAL SALINE 50 ML IV ONE (12:48)
--- NOTE | 2018-09-22 12:53 | EKG REPORT ---
SEVERITY:- OTHERWISE NORMAL ECG - SINUS TACHYCARDIA BORDERLINE LEFT AXIS DEVIATION : Confirmed by: Stevenson Rodriguez MD 22-Sep-2018 12:53:04
--- NOTE | 2018-09-22 13:11 | PSYCHOLOGICAL NOTE ---
Psych Note - Psych Note Date seen by psych provider: 09/22/18 Time seen by psych provider: 11:50 Psych Note: Reason for Consult: ETOH 57 years old male who is acutely psychotic as well as EtOH abuse was brought into the ED. hallucinating, could not get more history. Clinician attempted evaluation; however, patient has passed out and was unable to awaken and engage. No medication recommendations at this time Diagnosis: 303.00 (F10.229) Alcohol Intoxication, With Use Disorder, Severe 296.80 (F31.9) Unspecified Bipolar and Related Disorder, per history by patient Impression/plan: Patient has been put on IVC petition because of impaired insight, judgment, and impulse control, making him a danger to himself and others at this time. This patient is well known to this clinician and department ; he blood alcohol level is 336. Patient does not have a known history of psychosis but does have extensive history of alcohol abuse. Patient will be sober in approximately 12 hours and if no concern arise, patient can be discharged if attending physician requests, otherwise patient will be evaluated tomorrow.
[2018-09-22] MEDS: NORMAL SALINE 1000 ML 1,000 ML IV PRN ×2 (13:44→13:45)
== END 2018-09-22 20:52 | disposition home or self-care (01) ==
LOC: ER 10:14
DX: R45.851 Suicidal ideations (principal); F10.129 Alcohol abuse with intoxication, unspecified; F31.9 Bipolar disorder, unspecified; I10 Essential (primary) hypertension; Z88.6 Allergy status to analgesic agent; Z91.013 Allergy to seafood
CPT/HCPCS: 93005; 99285; 96372; 96361; 96365; 36415; 82962; 80307 ×4; 85025; 80053; 81001; 93010; J2060; J3486; J3411; J7030

== ENCOUNTER 2018-11-09 16:07 | Emergency (ER) | payer SELFPAY ==
[2018-11-09] MEDS ORDERED: NORMAL SALINE 1000 ML 1,000 ML IV ONE (16:56)
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
[2018-11-09 17:26] LABS: ABSOLUTE BASOPHILS # (AUTO) 0.1 10^3/uL (0.0-0.2); ABSOLUTE EOSINOPHILS # (AUTO) 0.4 10^3/uL (0.0-0.6); ABSOLUTE LYMPHOCYTES (AUTO) 2.7 10^3/uL (0.5-4.7); ABSOLUTE MONOCYTES (AUTO) 0.8 10^3/uL (0.1-1.4); ABSOLUTE NEUT (AUTO) 7.1 10^3/uL (1.7-8.2); BASOPHILS % (AUTO) 0.7 % (0-2); HEMATOCRIT 46.2 % (37.9-51.0); HEMOGLOBIN 16.2 g/dL (13.5-17.0); LYMPHOCYTES % (AUTO) 24.4 % (13-45); MEAN CORPUSCULAR HEMOGLOBIN 34.4 pg (27.0-33.4); MEAN CORPUSCULAR HGB CONC 35.2 g/dL (32.0-36.0); MEAN CORPUSCULAR VOLUME 98 fl (80-97); MONOCYTES % (AUTO) 7.5 % (3-13); PLATELET COUNT 277 10^3/uL (150-450); RED BLOOD COUNT 4.73 10^6/uL (4.35-5.55); RED CELL DISTRIBUTION WIDTH 13.6 % (11.5-14.0); SEGMENTED NEUTROPHILS % (AUTO) 63.4 % (42-78); TOTAL CELLS COUNTED % (AUTO) 100 %; WHITE BLOOD COUNT 11.2 10^3/uL (4.0-10.5)
--- NOTE | 2018-11-09 17:37 | RADIOLOGY REPORT (SQ) ---
EXAM DESCRIPTION: KUB/ABDOMEN (SINGLE VIEW) COMPLETED DATE/TIME: 11/09/2018 5:17 pm REASON FOR STUDY: constipation COMPARISON: None. NUMBER OF VIEWS: One view. TECHNIQUE: Supine radiographic image of the abdomen acquired. LIMITATIONS: None. FINDINGS: BOWEL GAS PATTERN: Normal bowel gas pattern. No dilated loops. CALCIFICATIONS: No suspicious calcifications. SOFT TISSUES: No gross mass or suggestion of organomegaly. HARDWARE: None in the abdomen. BONES: No acute fracture. No worrisome bone lesions. OTHER: No other significant finding. IMPRESSION: NO RADIOGRAPHIC EVIDENCE FOR ACUTE ABDOMINAL DISEASE. TECHNICAL DOCUMENTATION: JOB ID: [id number] [email or web address]- All Rights Reserved Reading location - IP/workstation name: [email or web address]
[2018-11-09 17:39] LABS: ALANINE AMINOTRANSFERASE 199 U/L (21-72); ALBUMIN 4.4 g/dL (3.5-5.0); ALKALINE PHOSPHATASE 138 U/L (38-126); ANION GAP 11 (5-19); ASPARTATE AMINO TRANSFERASE 205 U/L (17-59); BILIRUBIN,DIRECT 0.3 mg/dL (0.0-0.4); BILIRUBIN,TOTAL 0.5 mg/dL (0.2-1.3); BLOOD UREA NITROGEN 12 mg/dL (7-20); CALCIUM 9.8 mg/dL (8.4-10.2); CARBON DIOXIDE 24 mmol/L (22-30); CHLORIDE 105 mmol/L (98-107); GLUCOSE 99 mg/dL (75-110); POTASSIUM 4.3 mmol/L (3.6-5.0); SODIUM 140.2 mmol/L (137-145); TOTAL PROTEIN 7.7 g/dL (6.3-8.2)
[2018-11-09 18:15] LABS: APPEARANCE,URINE CLEAR; BILIRUBIN,URINE NEGATIVE (NEGATIVE); COLOR,URINE YELLOW; GLUCOSE, URINE NEGATIVE (NEGATIVE); KETONES,URINE NEGATIVE (NEGATIVE); LEUKOCYTE ESTERASE,URINE NEGATIVE (NEGATIVE); NITRITE,URINE NEGATIVE (NEGATIVE); PROTEIN,URINE NEGATIVE (NEGATIVE); URINE SPECIFIC GRAVITY 1.004; UROBILINOGEN,URINE NEGATIVE mg/dL (<2.0)
[2018-11-09 18:28] LABS: LIPASE 2203.6 U/L (23-300)
[2018-11-09] MEDS ORDERED: DIPHENHYDRAMINE HCL 50 MG/ML VIAL IV ONE (18:36)
[2018-11-09] MEDS ORDERED: FAMOTIDINE INJ/PF 20 MG/2 ML SDV IV ONE (18:36)
[2018-11-09] MEDS ORDERED: METHYLPREDNISOLONE INJ 125 MG/2 ML SDV IV ONE (18:36)
--- NOTE | 2018-11-09 20:47 | RADIOLOGY REPORT (SQ) ---
EXAM DESCRIPTION: U/S ABDOMEN COMPLETE W/O DOP COMPLETED DATE/TIME: 11/09/2018 8:19 pm REASON FOR STUDY: elevated LFT and lipase COMPARISON: None. TECHNIQUE: Dynamic and static grayscale images acquired of the abdomen and recorded on PACS. Additio nal selected color Doppler and spectral images recorded. Note: Study does not meet criteria for complete doppler/duplex scan LIMITATIONS: None. FINDINGS: PANCREAS: Obscured by overlying bowel gas. LIVER: Liver is diffusely hyperechoic with multiple hypoechoic masses of varying sizes scattered thro ughout the liver. LIVER VASCULATURE: Normal directional flow of the main portal vein. Hepatic veins not visualized. GALLBLADDER: No stones. Normal wall thickness. No pericholecystic fluid. ULTRASOUND-DETECTED DÍAZ'S SIGN: Negative. INTRAHEPATIC DUCTS AND COMMON DUCT: CBD is obscured by overlying bowel gas. Intrahepatic ducts héctor l caliber. No filling defects. INFERIOR VENA CAVA: Not visualized due to overlying bowel gas AORTA: No aneurysm. RIGHT KIDNEY: Normal size. Normal echogenicity. No solid or suspicious masses. No hydronephros is. No calcifications. LEFT KIDNEY: Normal size. Normal echogenicity. No solid or suspicious masses. No hydronephrosi s. No calcifications. SPLEEN: Normal size. No solid masses. PERITONEAL AND PLEURAL SPACES: No ascites or effusions. OTHER: No other significant finding. IMPRESSION: 1. Multiple hepatic masses concerning for metastatic disease. 2. Otherwise, no acute findings. TECHNICAL DOCUMENTATION: JOB ID: [id number] [employer]- All Rights Reserved Reading location - IP/workstation name: [email or web address]
--- NOTE | 2018-11-09 21:51 | RADIOLOGY REPORT (SQ) ---
PROCEDURE: CT OF THE ABDOMEN AND PELVIS WITH INTRAVENOUS CONTRAST HISTORY: lower pelvic pain, change in bowel habits, constip Indication: Same as above Comparison: None . Technique: The study was completed on 11/09/2018 at 9:[address] of the abdomen and pelvis was done with intravenous contrast. Images were obtained from the lung base to the level of the pubic symphysis in axial plane, followed by orthogonal sagittal and coronal reconstruction. Oral contrast was also given for the study. The patient was injected with radiographic contrast intravenously, without any documented immediate adverse reactions. This exam was performed according to our departmental dose-optimization program, which includes automated exposure control, adjustment of the mA and/or KV according to the patient's size and/or use of iterative reconstruction technique. FINDINGS: Images through the lung bases do not show any focal infiltrates or pleural effusions. There is a small hiatal hernia There is fatty metamorphosis of the liver, without hepatomegaly. There is presence of multiple ill-defined low-attenuation lesions in the subdiaphragmatic surface of the liver, with irregular peripheral enhancement, the largest of these lesions seen in the medial segment of the left lobe of the liver and measuring 1.4 x 1.7 cm. These most likely represent benign liver hemangiomas. However ultrasound confirmation of this finding is mandatory. The gallbladder, pancreas, spleen and the bilateral adrenal glands appear unremarkable. The bilateral kidneys enhance with contrast in a normal fashion. The urinary bladder is unremarkable . The bilateral ureters and the bilateral periureteral soft tissues and fat planes are unremarkable. The small bowel appears unremarkable, without any evidence of small bowel obstruction or bowel wall thickening. There is no CT evidence of pericecal inflammatory change or ileocecal mesenteric adenitis. The appendix is not visualized and is most likely surgically absent The ileocecal junction appears unremarkable. There is no CT evidence of acute colonic diverticulitis or colitis or large bowel obstruction. There is mild constipation The splenic and portal veins are of normal caliber, without any filling defects. There is no pathological lymphadenopathy in the retroperitoneum or in the pelvic region. There is no evidence of free fluid or free air in the abdomen or the pelvic region. There is no clinically significant abdominal aortic aneurysm. There is a small fat-containing periumbilical ventral hernia and small fat-containing bilateral inguinal hernia defects. Prior surgery seen in the proximal left femur The visualized lumbar spine shows multilevel degenerative change . The paravertebral soft tissues are unremarkable. The remainder of the pelvic structures are unremarkable. IMPRESSION: There is fatty metamorphosis of the liver, without hepatomegaly. There is presence of multiple ill-defined low-attenuation lesions in the subdiaphragmatic surface of the liver, with irregular peripheral enhancement, the largest of these lesions seen in the medial segment of the left lobe of the liver and measuring 1.4 x 1.7 cm. These most likely represent benign liver hemangiomas. However ultrasound confirmation of this finding is mandatory.. There is minimal constipation
[2018-11-09 22:30] VITALS: BP 137/85
== END 2018-11-09 23:41 | disposition home or self-care (01) ==
LOC: ER 16:07
DX: R74.8 Abnormal levels of other serum enzymes (principal); R10.84 Generalized abdominal pain
CPT/HCPCS: 99284; 96361; 96374; 96375; 36415; 83690; 84443; 85025; 80053; 81001; 74018; 76700; 74177; J1200; J2930; J7030; S0028

== ENCOUNTER 2018-11-23 13:41 | Inpatient (IN) | payer SELFPAY ==
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
[2018-11-23 15:19] LABS: ABSOLUTE BASOPHILS # (AUTO) 0.1 10^3/uL (0.0-0.2); ABSOLUTE EOSINOPHILS # (AUTO) 0.4 10^3/uL (0.0-0.6); ABSOLUTE LYMPHOCYTES (AUTO) 2.2 10^3/uL (0.5-4.7); ABSOLUTE MONOCYTES (AUTO) 1.3 10^3/uL (0.1-1.4); ABSOLUTE NEUT (AUTO) 7.7 10^3/uL (1.7-8.2); BASOPHILS % (AUTO) 1.1 % (0-2); EOSINOPHILS % (AUTO) 3.4 % (0-6); HEMATOCRIT 46.2 % (37.9-51.0); LYMPHOCYTES % (AUTO) 18.9 % (13-45); MEAN CORPUSCULAR HEMOGLOBIN 34.6 pg (27.0-33.4); MEAN CORPUSCULAR HGB CONC 34.7 g/dL (32.0-36.0); MEAN CORPUSCULAR VOLUME 100 fl (80-97); MONOCYTES % (AUTO) 10.8 % (3-13); PLATELET COUNT 363 10^3/uL (150-450); RED BLOOD COUNT 4.63 10^6/uL (4.35-5.55); SEGMENTED NEUTROPHILS % (AUTO) 65.8 % (42-78); TOTAL CELLS COUNTED % (AUTO) 100 %; WHITE BLOOD COUNT 11.7 10^3/uL (4.0-10.5)
[2018-11-23 15:26] LABS: APPEARANCE,URINE CLEAR; BILIRUBIN,URINE NEGATIVE (NEGATIVE); COLOR,URINE STRAW; GLUCOSE, URINE NEGATIVE (NEGATIVE); KETONES,URINE NEGATIVE (NEGATIVE); LEUKOCYTE ESTERASE,URINE NEGATIVE (NEGATIVE); NITRITE,URINE NEGATIVE (NEGATIVE); PROTEIN,URINE NEGATIVE (NEGATIVE); URINE SPECIFIC GRAVITY 1.003; UROBILINOGEN,URINE NEGATIVE mg/dL (<2.0)
[2018-11-23 15:33] LABS: ALANINE AMINOTRANSFERASE 117 U/L (21-72); ALBUMIN 4.7 g/dL (3.5-5.0); ALCOHOL 172 mg/dL (NONE DETECTED); ALKALINE PHOSPHATASE 135 U/L (38-126); ANION GAP 10 (5-19); ASPARTATE AMINO TRANSFERASE 102 U/L (17-59); BILIRUBIN,DIRECT 0.3 mg/dL (0.0-0.4); BILIRUBIN,TOTAL 0.4 mg/dL (0.2-1.3); BLOOD UREA NITROGEN 12 mg/dL (7-20); CALCIUM 10.3 mg/dL (8.4-10.2); CARBON DIOXIDE 26 mmol/L (22-30); CHLORIDE 105 mmol/L (98-107); GLUCOSE 88 mg/dL (75-110); LIPASE 1465.2 U/L (23-300); POTASSIUM 4.7 mmol/L (3.6-5.0); SODIUM 140.8 mmol/L (137-145)
--- NOTE | 2018-11-23 15:41 | RADIOLOGY REPORT (SQ) ---
EXAM DESCRIPTION: ACUTE ABDOMEN SERIES COMPLETED DATE/TIME: 11/23/2018 2:48 pm REASON FOR STUDY: Abdominal pain COMPARISON: 11/09/2018 NUMBER OF VIEWS: Three views. TECHNIQUE: Frontal chest, supine abdomen and upright/decubitus abdomen radiographic images acquired. LIMITATIONS: None. FINDINGS: CHEST: Lungs clear of infiltrates. FREE AIR: None. No abnormal gas collections. BOWEL GAS PATTERN: No evidence of intestinal obstruction. Formed stool throughout the colon. CALCIFICATIONS: No suspicious calcifications. HARDWARE: Surgical clips overlies right lower quadrant. Partially visualized left and femur intramed ullary anthony. SOFT TISSUES: No gross mass or suggestion of organomegaly. BONES: No acute fracture. No worrisome bone lesions. OTHER: No other significant finding. IMPRESSION: No evidence of intestinal obstruction or other acute intra-abdominal process. Formed st ool throughout the colon. Additional findings of multiple hepatic lesions and possible rectosigmoid mass noted on prior exams. Case discussed with Dr. Doan at the time of interpretation. TECHNICAL DOCUMENTATION: JOB ID: [id number] [email or web address]- All Rights Reserved Reading location - IP/workstation name: [email or web address]
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
[2018-11-23] MEDS ORDERED: OXYCODONE-ACETAMINOPHEN 5-325 MG TABLET PO PRN (16:39)
[2018-11-23] MEDS ORDERED: ONDANSETRON HCL INJ/PF 4 MG/2 ML SDV IV PRN (16:39)
[2018-11-23] MEDS ORDERED: LORAZEPAM INJ 2 MG/1 ML VIAL IV PRN (16:51)
[2018-11-23] MEDS ORDERED: NICOTINE 21 MG/24 HR PATCH.TD24 TD PRN (16:52)
[2018-11-23] MEDS ORDERED: DIAZEPAM INJ 10 MG/2 ML DISP.SYRIN IV PRN (16:53)
[2018-11-23] MEDS ORDERED: IBUPROFEN 800 MG TABLET PO PRN (17:13)
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
[2018-11-23] MEDS ORDERED: PEG 3350/NA SULF,BICARB,CL/KCL 4000 ML PO ONE (17:30)
[2018-11-23 19:34] LABS: URINE AMPHETAMINES SCREEN NEGATIVE; URINE BARBITURATES SCREEN NEGATIVE; URINE BENZODIAZEPINES SCREEN NEGATIVE; URINE COCAINE SCREEN NEGATIVE; URINE MARIJUANA (THC) SCREEN NEGATIVE; URINE METHADONE SCREEN NEGATIVE; URINE PHENCYCLIDINE SCREEN NEGATIVE
[2018-11-23] MEDS: NORMAL SALINE 1000 ML 1,000 ML with POTASSIUM CHLORIDE 20 MEQ, MAGNESIUM SULFATE 8 MEQ,... IV SCH ×5 (23:35)
[2018-11-23] MEDS: FAMOTIDINE 20 MG TABLET PO SCH (23:39)
[2018-11-23] MEDS: OLANZAPINE 5 MG TABLET PO SCH (23:39)
[2018-11-23] MEDS: ZOLPIDEM TARTRATE 5 MG TABLET PO SCH (23:43)
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
--- NOTE | 2018-11-24 08:54 | RADIOLOGY REPORT (SQ) ---
EXAM DESCRIPTION: MRI ABDOMEN COMBO COMPLETED DATE/TIME: 11/23/2018 9:49 pm REASON FOR STUDY: cancer COMPARISON: CT 11/09/2018. TECHNIQUE: Multiplanar multisequence imaging performed without and with contrast including sagittal, axial and coronal T2, axial T1, axial gradient fat sat T1, axial, sagittal and coronal fat sat T1 po st contrast. CONTRAST TYPE AND DOSE: 20 mL Dotarem. RENAL FUNCTION: GFR > 60. LIMITATIONS: Some motion. FINDINGS: LIVER: There are multiple heterogeneous enhancing masses suspicious for metastatic disease , 1 of the larger in the posterior segment of the right lobe 3.4 x 2.4 cm. Adenopathy gastrohepatic and celiac axis stations, 1 of the larger nodes 1.8 cm. SPLEEN: Normal size. No focal lesions. PANCREAS: No masses. No adjacent inflammation or peripancreatic fluid collections. Pancreatic duct no t dilated. GALLBLADDER: No masses. No stones. No gallbladder wall thickening or pericholecystic fluid. ADRENAL GLANDS: No significant masses or asymmetry. RIGHT KIDNEY AND URETER: No masses. No hydronephrosis. LEFT KIDNEY AND URETER: No masses. No hydronephrosis. AORTA AND VESSELS: No aneurysm. Portal vein is patent. RETROPERITONEUM: See above. BOWEL: No visualized masses. No inflammation. No significant dilatation. Review of the recent CT d emonstrates questionable thickening in the recto sigmoid colon. ABDOMINAL WALL AND PERITONEUM: No hernias. No free fluid. BONES: Nothing acute. OTHER: No other significant finding. IMPRESSION: Hepatic lesions suspicious for metastatic disease, possibly colon primary. Regional cheryl nopathy. No ascites. TECHNICAL DOCUMENTATION: JOB ID: [id number] [employer]- All Rights Reserved Reading location - IP/workstation name: [facility]
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
[2018-11-24] MEDS ORDERED: ONDANSETRON HCL INJ/PF 4 MG/2 ML SDV IV PRN (09:30)
[2018-11-24] MEDS: FAMOTIDINE 20 MG TABLET PO SCH ×2 (09:30→22:15)
[2018-11-24] MEDS: ENOXAPARIN SODIUM INJ 40 MG/0.4 ML DISP.SYRIN SUBCUT SCH (09:30)
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
--- NOTE | 2018-11-24 13:08 | PDOC PROGRESS REPORT ---
Subjective Progress Note for:: 11/24/18 Subjective:: 58-year-old male admitted for possible colon cancer with metastasis to the liver. Seen by the surgical team/oncology team. Patient is going for colonoscopy today. He is drinking GoLYTELY. No acute events in the last 24 hours. Patient is a history of heavy alcohol use he is getting diazepam and Ativan as needed. comfortably in the bed denies any complaints. Reason For Visit: CARCINOMA Physical Exam Vital Signs: Temp Pulse Resp BP Pulse Ox 97.4 F 72 17 147/79 H 99 11/24/18 07:58 11/24/18 07:58 11/24/18 07:58 11/24/18 07:58 11/24/18 07:58 Intake & Output 11/23/18 11/24/18 11/25/18 06:59 06:59 06:59 Weight 83.3 kg General appearance: PRESENT: no acute distress Head exam: PRESENT: atraumatic Eye exam: PRESENT: PERRLA Mouth exam: PRESENT: moist Neck exam: ABSENT: carotid bruit, JVD, lymphadenopathy, thyromegaly Respiratory exam: PRESENT: clear to auscultation filiberto. ABSENT: rales, rhonchi, wheezes Cardiovascular exam: PRESENT: RRR. ABSENT: diastolic murmur, rubs, systolic murmur GI/Abdominal exam: PRESENT: normal bowel sounds, soft. ABSENT: distended, guarding, mass, organolmegaly, rebound, tenderness Extremities exam: PRESENT: full ROM. ABSENT: calf tenderness, clubbing, pedal edema Neurological exam: PRESENT: alert, awake, oriented to person, oriented to place, oriented to time, oriented to situation, CN II-XII grossly intact. ABSENT: motor sensory deficit Psychiatric exam: PRESENT: appropriate affect, normal mood. ABSENT: homicidal ideation, suicidal ideation Results Laboratory Results: 11/23/18 14:57 11/23/18 14:57 11/23/18 11/23/18 11/23/18 14:57 14:57 14:57 WBC 11.7 H RBC 4.63 Hgb 16.0 Hct 46.2 MCV 100 H MCH 34.6 H MCHC 34.7 RDW 14.0 Plt Count 363 Seg Neutrophils % 65.8 Lymphocytes % 18.9 Monocytes % 10.8 Eosinophils % 3.4 Basophils % 1.1 Absolute Neutrophils 7.7 Absolute Lymphocytes 2.2 Absolute Monocytes 1.3 Absolute Eosinophils 0.4 Absolute Basophils 0.1 Sodium 140.8 Potassium 4.7 Chloride 105 Carbon Dioxide 26 Anion Gap 10 BUN 12 Creatinine 0.99 Est GFR ( Amer) > 60 Est GFR (Non-Af Amer) > 60 Glucose 88 Calcium 10.3 H Total Bilirubin 0.4 AST 102 H ALT 117 H Alkaline Phosphatase 135 H Total Protein 8.0 Albumin 4.7 Lipase 1465.2 H Urine Color STRAW Urine Appearance CLEAR Urine pH 6.0 Ur Specific [place] 1.003 Urine Protein NEGATIVE Urine Glucose (UA) NEGATIVE Urine Ketones NEGATIVE Urine Blood NEGATIVE Urine Nitrite NEGATIVE Ur Leukocyte Esterase NEGATIVE Urine WBC (Auto) 0 Impressions: Abdomen MRI 11/23/18 00:00 IMPRESSION: Hepatic lesions suspicious for metastatic disease, possibly colon primary. Regional adenopathy. No ascites. Acute Abdomen Series 11/23/18 14:30 IMPRESSION: No evidence of intestinal obstruction or other acute intra- abdominal process. Formed stool throughout the colon. Additional findings of multiple hepatic lesions and possible rectosigmoid mass noted on prior exams. Case discussed with Dr. Doan at the time of interpretation. Assessment & Plan - Diagnosis (1) Colon cancer Is this a current diagnosis for this admission?: Yes Plan: 11/23/2018-patient had acute abdominal series was done today there is a concern about possible rectosigmoid mass is there is circumferential wall thickening and adjacent lymphadenopathy. Patient had a CT scan of the abdomen and pelvis 11/09/2019 there is a suspicion for hepatic lesions ultrasound of the liver was done at the same time showed questionable hepatic lesions suggestive of metastasis. As per the ER team patient was advised to follow-up with a specialist as an outpatient patient is unable to do so because of lack of insurance and came to the ER again today with complaints of severe constipation and difficulty in urination on and off for 1 month. The plan is to put him in a medical flow consultation with the surgery Dr. Santiago and a consultation with oncologist Dr. Ni was requested. Blood work for CA125 ,CEA levels were requested. Order for GoLYTELY prep.for colonoscopy tomorrow. PSA level is pending. Order for the MRI of the abdomen to get a better picture of the hepatic lesions. Patient is complaining of severe pain he does not want to be taking oxycodone because he had allergic to Tylenol so he could repeat nightly Motrin 800 mg p.o. every 6 hours as needed for pain. Subsided edema was requested for severe constipation. Going to request for stool for occult blood. 11/24/2018-acute abdominal series and CT abdomen shows thickening around the rectosigmoid area indicating high possibility of colon cancer. Hepatic lesions in the liver. MRI of the liver was done yesterday suggestive of metastatic lesions. Patient is going for colonoscopy today. Denies any complaints today. Cardiology on board also. CEA Levels is very high. (2) Constipation Qualifiers: Constipation type: unspecified constipation type Qualified Code(s): K59.00 - Constipation, unspecified Is this a current diagnosis for this admission?: Yes Plan: 11/23/2018 patient is complaining of severe constipation on and off for the last 1 month. He had a 2 eat a bland diet try to take laxatives but nothing is helping him. He came to the ER 3 times for this problem. We are going to order for subsided edema, GoLYTELY prep for colonoscopy tomorrow. Also going to put him on MiraLAX 17 g twice a day. Patient denies using any opiates. Denies any visualization of the blood in the stool.. 11/24/2018-patient has several bowel movements today. Probably because of the GoLYTELY is drinking. Plan is to continue the present management. (3) Urinary retention Is this a current diagnosis for this admission?: Yes Plan: 11/23/2018 patient is complaining of difficulty in urination, difficulty initiation of the urination also probably may be secondary to BPH. Patient is going to be placed in a Kennedy's catheter urine analysis was requested. PSA is pending. In the previous CT scan done on 11/09/2018 there is no mention of the prostate static enlargement. 11/24/2018-patient came to complaints of difficulty in urination urinary re tention probably may be secondary to BPH and PSA levels are pending. He denies any problems with urination today. (4) Alcohol abuse Is this a current diagnosis for this admission?: Yes Plan: 11/23/2018 patient is giving the history of alcohol abuse he drinks almost on daily basis. Mainly drinks beer. Before coming to the hospital today he drank a couple of beers. We are going to watch for DTs placed him on diazepam as needed also Ativan as needed. Alcohol level on admission is 172. I am going to put him on a banana bag. 11/24/2018-patient has history of heavy alcohol use. He is on a banana bag. watching for DTs. He is on diazepam Ativan on as needed basis. Plan is to continue the present management. (5) Smoker Is this a current diagnosis for this admission?: Yes Plan: 11/23/2018-patient is giving the history of smoking smokes half a pack per day smoking history of more than 20 years. Strongly advised him to quit smoking and smoking cessation counseling was provided for more than 10 minutes. Going to be placed on nicotine patch. 11/24/2018 patient is to history of chronic smoking on nicotine patch. Smoking counseling was provided again today. (6) Bipolar 1 disorder Is this a current diagnosis for this admission?: Yes Plan: 11/23/2018-patient is well-known to the psychiatric department in this hospital. He was admitted here in September under involuntary commitment. At that time he was admitted for heavy alcohol abuse with alcohol level of more than 336. At that time no medication was recommended by the psychiatric team. I am going to place him on Zyprexa 5 mg p.o. nightly. 11/24/2018-psych evaluation was done for bipolar disorder. No medication recommendations by the psychiatric team. (7) Liver lesion Is this a current diagnosis for this admission?: Yes Plan: 11/23/2018 the ultrasound that was done on 11/09/2018 indicates suspicious metastatic hepatic lesions. Requested for MRI of the abdomen to get further information. Hepatic panel was requested. CA [address] was requested[address] Consult[address] Ni was requested. 11/24/2018 MRI of the liver was done shows multiple lesions in the liver probably metastatic in nature. - Time Time Spent with patient: 15-24 minutes Smoking Cessation Education: over 10 minutes Medications reviewed and adjusted accordingly: Yes Anticipated discharge: Home
--- NOTE | 2018-11-24 20:16 | RADIOLOGY REPORT (SQ) ---
EXAM DESCRIPTION: KUB/ABDOMEN (SINGLE VIEW) COMPLETED DATE/TIME: 11/24/2018 8:07 pm REASON FOR STUDY: severe constipation COMPARISON: 11/23/2018 NUMBER OF VIEWS: One view. TECHNIQUE: Supine radiographic image of the abdomen acquired. LIMITATIONS: None. FINDINGS: BOWEL GAS PATTERN: Normal bowel gas pattern. No dilated loops. CALCIFICATIONS: No suspicious calcifications. SOFT TISSUES: No gross mass or suggestion of organomegaly. HARDWARE: None in the abdomen. BONES: No acute fracture. No worrisome bone lesions. OTHER: No other significant finding. IMPRESSION: NO RADIOGRAPHIC EVIDENCE FOR ACUTE ABDOMINAL DISEASE. TECHNICAL DOCUMENTATION: JOB ID: [id number] [employer]- All Rights Reserved Reading location - IP/workstation name: [email or web address]
[2018-11-24] MEDS: ZOLPIDEM TARTRATE 5 MG TABLET PO SCH (22:14)
[2018-11-24] MEDS: ATENOLOL 50 MG TABLET PO SCH (22:14)
[2018-11-24] MEDS: OLANZAPINE 5 MG TABLET PO SCH (22:14)
[2018-11-24] MEDS ORDERED: DEXTROSE 50%-WATER 25 GM/50 ML DISP.SYRIN IV PRN ×2 (22:58)
[2018-11-24] MEDS ORDERED: GLUCAGON,HUMAN RECOMB 1 MG INJ SUBCUT PRN (22:58)
[2018-11-24] MEDS ORDERED: DEXTROSE 40% GEL 15 GM TUBE PO PRN ×2 (22:58)
--- NOTE | 2018-11-24 22:58 | PDOC PROGRESS REPORT ---
Subjective Progress Note for:: 11/24/18 Subjective:: Feels okay today. Minimal abdominal discomfort. Patient began drinking GoLYTELY late last night and is continued to drink this morning with only half of it consumed with only one bowel movement. Reason For Visit: CARCINOMA Physical Exam Vital Signs: Temp Pulse Resp BP Pulse Ox 97.4 F 72 17 147/79 H 99 11/24/18 07:58 11/24/18 07:58 11/24/18 07:58 11/24/18 07:58 11/24/18 07:58 Intake & Output 11/23/18 11/24/18 11/25/18 06:59 06:59 06:59 Weight 83.3 kg General appearance: PRESENT: no acute distress, cooperative Respiratory exam: PRESENT: clear to auscultation filiberto Cardiovascular exam: PRESENT: RRR GI/Abdominal exam: PRESENT: other - Soft, nondistended, nontender to palpation. Results Laboratory Results: 11/23/18 14:57 11/23/18 14:57 11/23/18 11/23/18 11/23/18 14:57 14:57 14:57 WBC 11.7 H RBC 4.63 Hgb 16.0 Hct 46.2 MCV 100 H MCH 34.6 H MCHC 34.7 RDW 14.0 Plt Count 363 Seg Neutrophils % 65.8 Lymphocytes % 18.9 Monocytes % 10.8 Eosinophils % 3.4 Basophils % 1.1 Absolute Neutrophils 7.7 Absolute Lymphocytes 2.2 Absolute Monocytes 1.3 Absolute Eosinophils 0.4 Absolute Basophils 0.1 Sodium 140.8 Potassium 4.7 Chloride 105 Carbon Dioxide 26 Anion Gap 10 BUN 12 Creatinine 0.99 Est GFR ( Amer) > 60 Est GFR (Non-Af Amer) > 60 Glucose 88 Calcium 10.3 H Total Bilirubin 0.4 AST 102 H ALT 117 H Alkaline Phosphatase 135 H Total Protein 8.0 Albumin 4.7 Lipase 1465.2 H Urine Color STRAW Urine Appearance CLEAR Urine pH 6.0 Ur Specific [place] 1.003 Urine Protein NEGATIVE Urine Glucose (UA) NEGATIVE Urine Ketones NEGATIVE Urine Blood NEGATIVE Urine Nitrite NEGATIVE Ur Leukocyte Esterase NEGATIVE Urine WBC (Auto) 0 Impressions: Abdomen MRI 11/23/18 00:00 IMPRESSION: Hepatic lesions suspicious for metastatic disease, possibly colon primary. Regional adenopathy. No ascites. Acute Abdomen Series 11/23/18 14:30 IMPRESSION: No evidence of intestinal obstruction or other acute intra- abdominal process. Formed stool throughout the colon. Additional findings of multiple hepatic lesions and possible rectosigmoid mass noted on prior exams. Case discussed with Dr. Doan at the time of interpretation. Assessment & Plan - Diagnosis (1) Liver lesion Is this a current diagnosis for this admission?: Yes Plan: Multiple hepatic lesions consistent with metastatic disease of unclear known primary. Will plan upper and lower endoscopy tomorrow after he has completed his bowel prep.
[2018-11-25 05:27] LABS: ABSOLUTE BASOPHILS # (AUTO) 0.1 10^3/uL (0.0-0.2); ABSOLUTE EOSINOPHILS # (AUTO) 0.4 10^3/uL (0.0-0.6); ABSOLUTE LYMPHOCYTES (AUTO) 1.6 10^3/uL (0.5-4.7); ABSOLUTE NEUT (AUTO) 4.3 10^3/uL (1.7-8.2); BASOPHILS % (AUTO) 0.9 % (0-2); HEMATOCRIT 41.2 % (37.9-51.0); HEMOGLOBIN 14.2 g/dL (13.5-17.0); LYMPHOCYTES % (AUTO) 22.1 % (13-45); MEAN CORPUSCULAR HEMOGLOBIN 33.8 pg (27.0-33.4); MEAN CORPUSCULAR HGB CONC 34.5 g/dL (32.0-36.0); MEAN CORPUSCULAR VOLUME 98 fl (80-97); MONOCYTES % (AUTO) 13.3 % (3-13); PLATELET COUNT 227 10^3/uL (150-450); RED BLOOD COUNT 4.21 10^6/uL (4.35-5.55); RED CELL DISTRIBUTION WIDTH 13.9 % (11.5-14.0); SEGMENTED NEUTROPHILS % (AUTO) 57.7 % (42-78); TOTAL CELLS COUNTED % (AUTO) 100 %; WHITE BLOOD COUNT 7.5 10^3/uL (4.0-10.5)
[2018-11-25] MEDS: NORMAL SALINE 1000 ML 1,000 ML with POTASSIUM CHLORIDE 20 MEQ, MAGNESIUM SULFATE 8 MEQ,... IV SCH ×5 (05:46)
[2018-11-25 07:57] LABS: PROSTATE SPECIFIC ANTIGEN 1.1 ng/mL (0.0-4.0); PSA % FREE 33.6 % (.); PSA FREE 0.37 ng/mL
--- NOTE | 2018-11-25 08:37 | PDOC PROGRESS REPORT ---
Subjective Progress Note for:: 11/25/18 Subjective:: Pt did complete prep, still having some brownish liquid but no formed stool Reason For Visit: CARCINOMA Physical Exam Vital Signs: Temp Pulse Resp BP Pulse Ox 97.6 F 74 18 133/69 H 99 11/24/18 23:33 11/24/18 23:33 11/24/18 23:33 11/24/18 23:33 11/24/18 23:33 Intake & Output 11/24/18 11/25/18 11/26/18 06:59 06:59 06:59 Intake Total 1023 Output Total 600 Balance 423 Weight 83.3 kg 81.3 kg General appearance: PRESENT: no acute distress, well-developed, well-nourished Head exam: PRESENT: atraumatic, normocephalic Eye exam: PRESENT: conjunctiva pink, EOMI, PERRLA. ABSENT: scleral icterus Ear exam: PRESENT: normal external ear exam Mouth exam: PRESENT: moist, tongue midline Neck exam: ABSENT: carotid bruit, JVD, lymphadenopathy, thyromegaly Respiratory exam: PRESENT: clear to auscultation filiberto. ABSENT: rales, rhonchi, wheezes Cardiovascular exam: PRESENT: RRR. ABSENT: diastolic murmur, rubs, systolic murmur Pulses: PRESENT: normal dorsalis pedis pul Vascular exam: PRESENT: normal capillary refill GI/Abdominal exam: PRESENT: normal bowel sounds, soft. ABSENT: distended, guarding, mass, organolmegaly, rebound, tenderness Rectal exam: PRESENT: deferred Extremities exam: PRESENT: full ROM. ABSENT: calf tenderness, clubbing, pedal edema Neurological exam: PRESENT: alert, awake, oriented to person, oriented to place, oriented to time, oriented to situation, CN II-XII grossly intact. ABSENT: motor sensory deficit Psychiatric exam: PRESENT: appropriate affect, normal mood. ABSENT: homicidal ideation, suicidal ideation Skin exam: PRESENT: dry, intact, warm. ABSENT: cyanosis, rash Results Laboratory Results: 11/25/18 03:58 11/23/18 14:57 11/23/18 11/25/18 17:24 03:58 WBC 7.5 RBC 4.21 L Hgb 14.2 Hct 41.2 MCV 98 H MCH 33.8 H MCHC 34.5 RDW 13.9 Plt Count 227 Seg Neutrophils % 57.7 Lymphocytes % 22.1 Monocytes % 13.3 H Eosinophils % 6.0 Basophils % 0.9 Absolute Neutrophils 4.3 Absolute Lymphocytes 1.6 Absolute Monocytes 1.0 Absolute Eosinophils 0.4 Absolute Basophils 0.1 Prostate Specific [place] 1.1 Free PSA 0.37 % Free PSA 33.6 Impressions: Abdomen MRI 11/23/18 00:00 IMPRESSION: Hepatic lesions suspicious for metastatic disease, possibly colon primary. Regional adenopathy. No ascites. Acute Abdomen Series 11/23/18 14:30 IMPRESSION: No evidence of intestinal obstruction or other acute intra- abdominal process. Formed stool throughout the colon. Additional findings of multiple hepatic lesions and possible rectosigmoid mass noted on prior exams. Case discussed with Dr. Doan at the time of interpretation. KUB X-Ray 11/24/18 00:00 IMPRESSION: NO RADIOGRAPHIC EVIDENCE FOR ACUTE ABDOMINAL DISEASE. Status: Image reviewed by me Assessment & Plan - Diagnosis (1) Colonic mass Is this a current diagnosis for this admission?: Yes Plan: Likely colon cancer with metastasis to liver, plan for colonoscopy and biopsy, patient is n.p.o. and should be ready to go today. Hopefully that will give us the diagnosis and we can consider going forward with further diagnostics and treatment. - Time Time Spent with patient: 35 or more minutes Disposition: Today had discussion with patient about his current status of disease and next steps of care, spent about 40 minutes in discussion - Inpatient Certification Based on my medical assessment, after consideration of the patient's comorbidities, presenting symptoms, or acuity I expect that the services needed warrant INPATIENT care.: Yes I certify that my determination is in accordance with my understanding of Medicare's requirements for reasonable and necessary INPATIENT services [42 CFR 412.3e].: Yes Medical Necessity: Need for Surgery
--- NOTE | 2018-11-25 10:18 | PDOC PROGRESS REPORT ---
Subjective Progress Note for:: 11/25/18 Reason For Visit: CARCINOMA r/o metastatic colon cancer Physical Exam Vital Signs: Temp Pulse Resp BP Pulse Ox 97.9 F 75 21 H 142/79 H 99 11/25/18 08:00 11/25/18 08:00 11/25/18 08:00 11/25/18 08:00 11/25/18 08:00 Intake & Output 11/24/18 11/25/18 11/26/18 06:59 06:59 06:59 Intake Total 1023 Output Total 600 Balance 423 Weight 83.3 kg 81.3 kg General appearance: PRESENT: no acute distress Head exam: PRESENT: atraumatic, normocephalic Respiratory exam: PRESENT: clear to auscultation filiberto Cardiovascular exam: PRESENT: RRR Pulses: PRESENT: +2 pedal pulses bilateral Vascular exam: PRESENT: normal capillary refill GI/Abdominal exam: PRESENT: soft, other - no palp masses Rectal exam: PRESENT: deferred Extremities exam: PRESENT: full ROM Musculoskeletal exam: PRESENT: ambulatory, full ROM Neurological exam: PRESENT: alert, awake, oriented to time, oriented to situation Psychiatric exam: PRESENT: appropriate affect Skin exam: PRESENT: dry Results Laboratory Results: 11/25/18 03:58 11/23/18 14:57 11/23/18 11/25/18 17:24 03:58 WBC 7.5 RBC 4.21 L Hgb 14.2 Hct 41.2 MCV 98 H MCH 33.8 H MCHC 34.5 RDW 13.9 Plt Count 227 Seg Neutrophils % 57.7 Lymphocytes % 22.1 Monocytes % 13.3 H Eosinophils % 6.0 Basophils % 0.9 Absolute Neutrophils 4.3 Absolute Lymphocytes 1.6 Absolute Monocytes 1.0 Absolute Eosinophils 0.4 Absolute Basophils 0.1 Prostate Specific [place] 1.1 Free PSA 0.37 % Free PSA 33.6 Impressions: Abdomen MRI 11/23/18 00:00 IMPRESSION: Hepatic lesions suspicious for metastatic disease, possibly colon primary. Regional adenopathy. No ascites. Acute Abdomen Series 11/23/18 14:30 IMPRESSION: No evidence of intestinal obstruction or other acute intra- abdominal process. Formed stool throughout the colon. Additional findings of multiple hepatic lesions and possible rectosigmoid mass noted on prior exams. Case discussed with Dr. Doan at the time of interpretation. KUB X-Ray 11/24/18 00:00 IMPRESSION: NO RADIOGRAPHIC EVIDENCE FOR ACUTE ABDOMINAL DISEASE. Assessment & Plan - Diagnosis (1) Colon cancer Is this a current diagnosis for this admission?: Yes - Plan Summary Plan Summary: pt has completed bowel prep will plan on colonoscopy today
[2018-11-25 10:38] LABS: HEPATITIS A AB IGM Negative (Negative); HEPATITS B SURFACE ANTIGEN Negative (Negative)
[2018-11-25] MEDS: ENOXAPARIN SODIUM INJ 40 MG/0.4 ML DISP.SYRIN SUBCUT SCH (10:39)
[2018-11-25] MEDS: ATENOLOL 50 MG TABLET PO SCH ×2 (10:40→21:47)
[2018-11-25] MEDS: FAMOTIDINE 20 MG TABLET PO SCH ×2 (10:40→21:46)
[2018-11-25] MEDS ORDERED: ONDANSETRON HCL INJ/PF 4 MG/2 ML SDV ONE (12:17)
[2018-11-25] MEDS ORDERED: DIPHENHYDRAMINE HCL 50 MG/ML VIAL ONE (12:17)
[2018-11-25] MEDS ORDERED: FLUMAZENIL INJ 0.5 MG/5 ML VIAL ONE (12:18)
[2018-11-25] MEDS ORDERED: GLUCAGON,HUMAN RECOMB 1 MG INJ ONE (12:18)
[2018-11-25] MEDS ORDERED: EPINEPHRINE INJ 1 MG/10 ML DISP.SYRIN ONE (12:18)
[2018-11-25] MEDS ORDERED: NALOXONE HCL INJ/PF 0.4 MG/1 ML SDV ONE (12:18)
[2018-11-25] MEDS: MIDAZOLAM 2 MG/2 ML INJ ONE ×4 (13:41→13:56)
[2018-11-25] MEDS: FENTANYL CITRATE INJ/PF 100 MCG/2 ML AMPUL ONE ×4 (13:42→13:57)
[2018-11-25 13:49] LABS: HEPATITIS B CORE AB IGM Negative (Negative)
--- NOTE | 2018-11-25 14:31 | Operative Report ---
Nonrecallable Operative Report DATE OF SURGERY: 11/25/18 PREOPERATIVE DIAGNOSIS: colon cancer POSTOPERATIVE DIAGNOSIS: colon cancer OPERATION: colonoscopy SURGEON: AMINAH NEUMANN ANESTHESIA: Moderate Sedation TISSUE REMOVED OR ALTERED: sigmoid tissue COMPLICATIONS: none INTRAOPERATIVE FINDINGS: sigmoid mass PROCEDURE: see dictation
--- NOTE | 2018-11-25 15:01 | PDOC PROGRESS REPORT ---
Subjective Progress Note for:: 11/25/18 Subjective:: 58-year-old male admitted for possible colon cancer with metastasis to the liver. Seen by the surgical team/oncology team. Patient is going for colonoscopy today. He is drinking GoLYTELY. No acute events in the last 24 hours. Patient is a history of heavy alcohol use he is getting diazepam and Ativan as needed. comfortably in the bed denies any complaints. No acute events in the last 24 hours. Patient is afebrile. He was prepped to go for colonoscopy today. Reason For Visit: CARCINOMA Physical Exam Vital Signs: Temp Pulse Resp BP Pulse Ox 97.7 F 75 21 H 110/73 97 11/25/18 12:00 11/25/18 14:30 11/25/18 14:30 11/25/18 14:30 11/25/18 14:30 Intake & Output 11/24/18 11/25/18 11/26/18 06:59 06:59 06:59 Intake Total 1023 450 Output Total 600 Balance 423 450 Weight 83.3 kg 81.3 kg 81.3 kg General appearance: PRESENT: no acute distress Head exam: PRESENT: atraumatic Eye exam: PRESENT: PERRLA Mouth exam: PRESENT: moist Neck exam: ABSENT: carotid bruit, JVD, lymphadenopathy, thyromegaly Respiratory exam: PRESENT: clear to auscultation filiberto. ABSENT: rales, rhonchi, wheezes Cardiovascular exam: PRESENT: RRR. ABSENT: diastolic murmur, rubs, systolic murmur GI/Abdominal exam: PRESENT: normal bowel sounds, soft. ABSENT: distended, guarding, mass, organolmegaly, rebound, tenderness Extremities exam: PRESENT: full ROM. ABSENT: calf tenderness, clubbing, pedal edema Neurological exam: PRESENT: alert, awake, oriented to person, oriented to place, oriented to time, oriented to situation, CN II-XII grossly intact. ABSENT: motor sensory deficit Psychiatric exam: PRESENT: appropriate affect, normal mood. ABSENT: homicidal ideation, suicidal ideation Results Laboratory Results: 11/25/18 03:58 11/23/18 14:57 11/23/18 11/25/18 17:24 03:58 WBC 7.5 RBC 4.21 L Hgb 14.2 Hct 41.2 MCV 98 H MCH 33.8 H MCHC 34.5 RDW 13.9 Plt Count 227 Seg Neutrophils % 57.7 Lymphocytes % 22.1 Monocytes % 13.3 H Eosinophils % 6.0 Basophils % 0.9 Absolute Neutrophils 4.3 Absolute Lymphocytes 1.6 Absolute Monocytes 1.0 Absolute Eosinophils 0.4 Absolute Basophils 0.1 Prostate Specific Ag 1.1 Free PSA 0.37 % Free PSA 33.6 Impressions: Abdomen MRI 11/23/18 00:00 IMPRESSION: Hepatic lesions suspicious for metastatic disease, possibly colon primary. Regional adenopathy. No ascites. Acute Abdomen Series 11/23/18 14:30 IMPRESSION: No evidence of intestinal obstruction or other acute intra- abdominal process. Formed stool throughout the colon. Additional findings of multiple hepatic lesions and possible rectosigmoid mass noted on prior exams. Case discussed with Dr. Doan at the time of interpretation. KUB X-Ray 11/24/18 00:00 IMPRESSION: NO RADIOGRAPHIC EVIDENCE FOR ACUTE ABDOMINAL DISEASE. Assessment & Plan - Diagnosis (1) Colon cancer Is this a current diagnosis for this admission?: Yes Plan: 11/23/2018-patient had acute abdominal series was done today there is a concern about possible rectosigmoid mass is there is circumferential wall thickening and adjacent lymphadenopathy. Patient had a CT scan of the abdomen and pelvis 11/09/2019 there is a suspicion for hepatic lesions ultrasound of the liver was done at the same time showed questionable hepatic lesions suggestive of metastasis. As per the ER team patient was advised to follow-up with a specialist as an outpatient patient is unable to do so because of lack of insurance and came to the ER again today with complaints of severe constipation and difficulty in urination on and off for 1 month. The plan is to put him in a medical flow consultation with the surgery Dr. Santiago and a consultation with oncologist Dr. Ni was requested. Blood work for CA125 ,CEA levels were requested. Order for GoLYTELY prep.for colonoscopy tomorrow. PSA level is pending. Order for the MRI of the abdomen to get a better picture of the hepatic lesions. Patient is complaining of severe pain he does not want to be taking oxycodone because he had allergic to Tylenol so he could repeat nightly Motrin 800 mg p.o. every 6 hours as needed for pain. Subsided edema was requested for severe constipation. Going to request for stool for occult blood. 11/24/2018-acute abdominal series and CT abdomen shows thickening around the rectosigmoid area indicating high possibility of colon cancer. Hepatic lesions in the liver. MRI of the liver was done yesterday suggestive of metastatic lesions. Patient is going for colonoscopy today. Denies any complaints today. Cardiology on board also.CEA Levels is very high. 11/25/2018-patient went for a colonoscopy today preliminary report indicates sigmoid mass. (2) Constipation Qualifiers: Constipation type: unspecified constipation type Qualified Code(s): K59.00 - Constipation, unspecified Is this a current diagnosis for this admission?: Yes Plan: 11/23/2018 patient is complaining of severe constipation on and off for the last 1 month. He had a 2 eat a bland diet try to take laxatives but nothing is helping him. He came to the ER 3 times for this problem. We are going to order for subsided edema, GoLYTELY prep for colonoscopy tomorrow. Also going to put him on MiraLAX 17 g twice a day. Patient denies using any opiates. Denies any vis ualization of the blood in the stool.. 11/24/2018-patient has several bowel movements today. Probably because of the GoLYTELY is drinking. Plan is to continue the present management. 11/25/2018-patient was a treated with GoLYTELY and edema is his constipation was resolved. (3) Urinary retention Is this a current diagnosis for this admission?: Yes Plan: 11/23/2018 patient is complaining of difficulty in urination, difficulty ini tiation of the urination also probably may be secondary to BPH. Patient is going to be placed in a Kennedy's catheter urine analysis was requested. PSA is pending. In the previous CT scan done on 11/09/2018 there is no mention of the prostate static enlargement. 11/24/2018-patient came to complaints of difficulty and urinary retention urinary retention probably may be secondary to BPH and PSA levels are pending. He denies any problems with urination today. 11/25/2018-patient initially came in with difficulty in urination and urinary retention urination, no problems during the hospital stay. (4) Alcohol abuse Is this a current diagnosis for this admission?: Yes Plan: 11/23/2018 patient is giving the history of alcohol abuse he drinks almost on daily basis. Mainly drinks beer. Before coming to the hospital today he drank a couple of beers. We are going to watch for DTs placed him on diazepam as needed also Ativan as needed. Alcohol level on admission is 172. I am going to put him on a banana bag. 11/24/2018-patient has history of heavy alcohol use. He is on a banana bag. watching for DTs. He is on diazepam Ativan on as needed basis. Plan is to continue the present management. 11/25/2018-patient has history of heavy alcohol use. He is getting banana bag on daily basis he is on Ativan as needed. We are watching for DTs. (5) Smoker Is this a current diagnosis for this admission?: Yes Plan: 11/23/2018-patient is giving the history of smoking smokes half a pack per day smoking history of more than 20 years. Strongly advised him to quit smoking and smoking cessation counseling was provided for more than 10 minutes. Going to be placed on nicotine patch. 11/24/2018 patient is to history of chronic smoking on nicotine patch. Smoking counseling was provided again today. 11/25/2018-patient has history of chronic smoking he was placed on nicotine patch. (6) Bipolar 1 disorder Is this a current diagnosis for this admission?: Yes Plan: 11/23/2018-patient is well-known to the psychiatric department in this hospital. He was admitted here in September under involuntary commitment. At that time he was admitted for heavy alcohol abuse with alcohol level of more than 336. At that time no medication was recommended by the psychiatric team. I am going to place him on Zyprexa 5 mg p.o. nightly. 11/24/2018-psych evaluation was done for bipolar disorder. No medication recommendations by the psychiatric team. 11/25/2018-patient has history of bipolar disorder psych consult was done no medication recommendations were made. (7) Liver lesion Is this a current diagnosis for this admission?: Yes Plan: 11/23/2018 the ultrasound that was done on 11/09/2018 indicates suspicious metastatic hepatic lesions. Requested for MRI of the abdomen to get further information. Hepatic panel was requested. CA 125 was requested. Consultation with Dr. Ni was requested. 11/24/2018 MRI of the liver was done shows multiple lesions in the liver probably metastatic in nature. 11/25/2018-possible metastasis to the liver. Primary probably colon cancer. oncology consult was requested. - Time Time Spent with patient: 15-24 minutes Smoking Cessation Education: over 10 minutes Medications reviewed and adjusted accordingly: Yes Anticipated discharge: Home
[2018-11-25] MEDS: IBUPROFEN 600 MG TABLET PO PRN (19:02)
[2018-11-25] MEDS: ZOLPIDEM TARTRATE 5 MG TABLET PO SCH (21:46)
[2018-11-25] MEDS: OLANZAPINE 5 MG TABLET PO SCH (21:48)
--- NOTE | 2018-11-26 09:07 | OPERATIVE REPORT E ---
Operative Report NAME: HAYDEE SANTOS : 1960 AGE: 58Y DATE OF SURGERY: 11/25/2018 ROOM: 534 PREOPERATIVE DIAGNOSIS: Hepatic metastases, rule out colon cancer. POSTOPERATIVE DIAGNOSIS: Hepatic metastases, rule out colon cancer. OPERATIVE PROCEDURE: Colonoscopy under conscious sedation. SURGEON: AMINAH NEUMANN M.D. PROCEDURE: The patient was brought to the endoscopy suite awake, alert, in stable condition, placed in a left lateral decubitus position, and he was given IV sedation, including Fentanyl and Versed. After adequate anesthesia and appropriate time out, the procedure began. Initially the colonoscope was passed into the rectum and advanced to approximately 20 cm where we encountered a moderate stricture and an obvious mucosal mass. This was biopsied x2. We then switched the colonoscope to the gastroscope which then easily passed the mass and was advanced proximally to about 80 cm where we identified normal mucosa and hepatic flexure. In an attempt to transverse the hepatic flexure the patient became more uncomfortable, and it was felt at this point that there was no evidence of any bleeding proximal to that and we had performed our biopsy of the sigmoid mass, and at this point we elected to terminate the procedure. The gastroscope was then slowly withdrawn, visualizing normal mucosa above the sigmoid mass at 20 cm, passing the sigmoid mass, and then removing the scope. This completed the procedure. Estimated blood loss for the procedure was less than 25 mL. The patient was then monitored for the next 10 minutes in the endoscopy suite and then returned to his room in stable condition. DICTATING PHYSICIAN: AMINAH NEUMANN M.D. [id number] PHY#: [id number] ID: [id number] JOB#: [id number] ACCT: [id number] cc:AMINAH NEUMANN M.D. >
[2018-11-26] MEDS: FAMOTIDINE 20 MG TABLET PO SCH ×2 (10:52→21:48)
[2018-11-26] MEDS: ATENOLOL 50 MG TABLET PO SCH ×2 (10:52→21:48)
[2018-11-26] MEDS: ENOXAPARIN SODIUM INJ 40 MG/0.4 ML DISP.SYRIN SUBCUT SCH (10:52)
--- NOTE | 2018-11-26 11:30 | PDOC PROGRESS REPORT ---
Subjective Progress Note for:: 11/26/18 Subjective:: 58-year-old male admitted for possible colon cancer with metastasis to the liver. Seen by the surgical team/oncology team. Patient is going for colonoscopy today. He is drinking GoLYTELY. No acute events in the last 24 hours. Patient is a history of heavy alcohol use he is getting diazepam and Ativan as needed. comfortably in the bed denies any complaints. No acute events in the last 24 hours. Patient is afebrile. He was prepped to go for colonoscopy today. 11/26/2018 no acute events in the last 24 hours. Patient denies any complaints. Patient's mom is at bedside. She wants to know what is going on with her son. I explained to her that colonoscopy shows possible sigmoid mass and we are waiting for the biopsy reports. she understood and verbalized response. Reason For Visit: CARCINOMA Physical Exam Vital Signs: Temp Pulse Resp BP Pulse Ox 97.6 F 70 17 134/84 H 100 11/26/18 08:00 11/26/18 08:00 11/26/18 08:00 11/26/18 08:00 11/26/18 08:00 Intake & Output 11/25/18 11/26/18 11/27/18 06:59 06:59 06:59 Intake Total 1023 3414 Output Total 600 10 Balance 423 3404 Weight 81.3 kg 81.9 kg General appearance: PRESENT: no acute distress Head exam: PRESENT: atraumatic Eye exam: PRESENT: PERRLA Mouth exam: PRESENT: moist Neck exam: ABSENT: carotid bruit, JVD, lymphadenopathy, thyromegaly Respiratory exam: PRESENT: clear to auscultation filiberto. ABSENT: rales, rhonchi, wheezes Cardiovascular exam: PRESENT: RRR. ABSENT: diastolic murmur, rubs, systolic murmur GI/Abdominal exam: PRESENT: normal bowel sounds, soft. ABSENT: distended, guarding, mass, organolmegaly, rebound, tenderness Extremities exam: PRESENT: full ROM. ABSENT: calf tenderness, clubbing, pedal edema Neurological exam: PRESENT: alert, awake, oriented to person, oriented to place, oriented to time, oriented to situation, CN II-XII grossly intact. ABSENT: motor sensory deficit Psychiatric exam: PRESENT: appropriate affect, normal mood. ABSENT: homicidal ideation, suicidal ideation Results Laboratory Results: 11/25/18 03:58 11/23/18 14:57 Impressions: Abdomen MRI 11/23/18 00:00 IMPRESSION: Hepatic lesions suspicious for metastatic disease, possibly colon primary. Regional adenopathy. No ascites. Acute Abdomen Series 11/23/18 14:30 IMPRESSION: No evidence of intestinal obstruction or other acute intra- abdominal process. Formed stool throughout the colon. Additional findings of multiple hepatic lesions and possible rectosigmoid mass noted on prior exams. Case discussed with Dr. Doan at the time of interpretation. KUB X-Ray 11/24/18 00:00 IMPRESSION: NO RADIOGRAPHIC EVIDENCE FOR ACUTE ABDOMINAL DISEASE. Assessment & Plan - Diagnosis (1) Colon cancer Is this a current diagnosis for this admission?: Yes Plan: 11/23/2018-patient had acute abdominal series was done today there is a concern about possible rectosigmoid mass is there is circumferential wall thickening and adjacent lymphadenopathy. Patient had a CT scan of the abdomen and pelvis 11/09/2019 there is a suspicion for hepatic lesions ultrasound of the liver was done at the same time showed questionable hepatic lesions suggestive of meta stasis. As per the ER team patient was advised to follow-up with a specialist as an outpatient patient is unable to do so because of lack of insurance and came to the ER again today with complaints of severe constipation and difficulty in urination on and off for 1 month. The plan is to put him in a medical flow consultation with the surgery Dr. Santiago and a consultation with oncologist Dr. Ni was requested. Blood work for CA125 ,CEA levels were requested. Order for GoLYTELY prep.for colonoscopy tomorrow. PSA level is pending. Order for the MRI of the abdomen to get a better picture of the hepatic lesions. Patient is complaining of severe pain he does not want to be taking oxycodone because he had allergic to Tylenol so he could repeat nightly Motrin 800 mg p.o. every 6 hours as needed for pain. Subsided edema was requested for severe constipation. Going to request for stool for occult blood. 11/24/2018-acute abdominal series and CT abdomen shows thickening around the re ctosigmoid area indicating high possibility of colon cancer. Hepatic lesions in the liver. MRI of the liver was done yesterday suggestive of metastatic lesions. Patient is going for colonoscopy today. Denies any complaints today. Cardiology on board also.CEA Levels is very high. 11/25/2018-patient went for a colonoscopy today preliminary report indicates sigmoid mass. 11/26/2018-patient went for colonoscopy it shows sigmoid mass is waiting for biopsy report. Dr. Santiago is going to come and talk to the patient today. (2) Constipation Qualifiers: Constipation type: unspecified constipation type Qualified Code(s): K59.00 - Constipation, unspecified Is this a current diagnosis for this admission?: Yes Plan: 11/23/2018 patient is complaining of severe constipation on and off for the last 1 month. He had a 2 eat a bland diet try to take laxatives but nothing is helping him. He came to the ER 3 times for this problem. We are going to order for subsided edema, GoLYTELY prep for colonoscopy tomorrow. Also going to put him on MiraLAX 17 g twice a day. Patient denies using any opiates. Denies any visualization of the blood in the stool.. 11/24/2018-patient has several bowel movements today. Probably because of the GoLYTELY is drinking. Plan is to continue the present management. 11/25/2018-patient was a treated with GoLYTELY and edema is his constipation was resolved. 11/26/2018-patient denies any problems with constipation today. (3) Urinary retention Is this a current diagnosis for this admission?: Yes Plan: 11/23/2018 patient is complaining of difficulty in urination, difficulty initiation of the urination also probably may be secondary to BPH. Patient is going to be placed in a Kennedy's catheter urine analysis was requested. PSA is pending. In the previous CT scan done on 11/09/2018 there is no mention of the prostate static enlargement. 11/24/2018-patient came to complaints of difficulty and urinary retention urinary retention probably may be secondary to BPH and PSA levels are pending. He denies any problems with urination today. 11/25/2018-patient initially came in with difficulty in urination and urinary retention urination, no problems during the hospital stay. 11/26/2018 patient denies any problems with urination. Prostate specific antigen is 1.1. (4) Alcohol abuse Is this a current diagnosis for this admission?: Yes Plan: 11/23/2018 patient is giving the history of alcohol abuse he drinks almost on daily basis. Mainly drinks beer. Before coming to the hospital today he drank a couple of beers. We are going to watch for DTs placed him on diazepam as needed also Ativan as needed. Alcohol level on admission is 172. I am going to put him on a banana bag. 11/24/2018-patient has history of heavy alcohol use. He is on a banana bag. watching for DTs. He is on diazepam Ativan on as needed basis. Plan is to continue the present management. 11/25/2018-patient has history of heavy alcohol use. He is getting banana bag on daily basis he is on Ativan as needed. We are watching for DTs. 11/26/2018 patient has a history of heavy alcohol use he is receiving banana bag on daily basis and also Ativan as needed. No DTs observed since the admission. (5) Smoker Is this a current diagnosis for this admission?: Yes Plan: 11/23/2018-patient is giving the history of smoking smokes half a pack per day smoking history of more than 20 years. Strongly advised him to quit smoking and smoking cessation counseling was provided for more than 10 minutes. Going to be placed on nicotine patch. 11/24/2018 patient is to history of chronic smoking on nicotine patch. Smoking counseling was provided again today. 11/25/2018-patient has history of chronic smoking he was placed on nicotine patch. 11/26/2018 patient has history of chronic smoking he is on nicotine patch, smoking counseling was provided again strongly advised him to quit smoking. (6) Bipolar 1 disorder Is this a current diagnosis for this admission?: Yes Plan: 11/23/2018-patient is well-known to the psychiatric department in this hospital. He was admitted here in September under involuntary commitment. At that time he was admitted for heavy alcohol abuse with alcohol level of more than 336. At that time no medication was recommended by the psychiatric team. I am going to place him on Zyprexa 5 mg p.o. nightly. 11/24/2018-psych evaluation was done for bipolar disorder. No medication recommendations by the psychiatric team. 11/25/2018-patient has history of bipolar disorder psych consult was done no medication recommendations were made. 11/26/2018-patient has history of bipolar disorder not on any medications at this moment patient is stable. (7) Liver lesion Is this a current diagnosis for this admission?: Yes Plan: 11/23/2018 the ultrasound that was done on 11/09/2018 indicates suspicious m etastatic hepatic lesions. Requested for MRI of the abdomen to get further information. Hepatic panel was requested. CA 125 was requested. Consultation with Dr. Ni was requested. 11/24/2018 MRI of the liver was done shows multiple lesions in the liver probably metastatic in nature. 11/25/2018-possible metastasis to the liver. Primary probably colon cancer. oncology consult was requested. 11/26/2018 MRI of the liver indicates hepatic lesions most likely primaries in the colon. - Time Time Spent with patient: 15-24 minutes Smoking Cessation Education: over 10 minutes Medications reviewed and adjusted accordingly: Yes Anticipated discharge: Home
--- NOTE | 2018-11-26 16:34 | PDOC PROGRESS REPORT ---
Subjective Progress Note for:: 11/26/18 Subjective:: This is a 58-year-old male status post colonoscopy. He was found to have a large sigmoid mass, consistent with colon cancer. Patient denies any symptoms today. He has no hematochezia, melena, abdominal pain. He also denies chest pain, shortness of breath, fevers, chills, fatigue, malaise, nausea, vomiting, dizziness, orthostasis. Reason For Visit: CARCINOMA Physical Exam Vital Signs: Temp Pulse Resp BP Pulse Ox 98.3 F 71 18 146/84 H 100 11/26/18 16:00 11/26/18 16:00 11/26/18 16:00 11/26/18 12:00 11/26/18 16:00 Intake & Output 11/25/18 11/26/18 11/27/18 06:59 06:59 06:59 Intake Total 1023 3414 580 Output Total 600 10 Balance 423 3404 580 Weight 81.3 kg 81.9 kg General appearance: PRESENT: no acute distress, cooperative Head exam: PRESENT: atraumatic, normocephalic Eye exam: PRESENT: EOMI, PERRLA Mouth exam: PRESENT: neck supple Neck exam: ABSENT: meningismus, tenderness, thyromegaly, tracheal deviation Respiratory exam: PRESENT: clear to auscultation filiberto. ABSENT: chest wall tenderness Cardiovascular exam: PRESENT: RRR Pulses: PRESENT: normal radial pulses GI/Abdominal exam: PRESENT: soft. ABSENT: distended, firm, tenderness Rectal exam: PRESENT: deferred Extremities exam: ABSENT: clubbing Musculoskeletal exam: ABSENT: deformity Neurological exam: PRESENT: alert, awake, oriented to person, oriented to place, oriented to time, oriented to situation, CN II-XII grossly intact Psychiatric exam: ABSENT: agitated, anxious, depressed Focused psych exam: ABSENT: delusional Skin exam: ABSENT: cyanosis, erythema, jaundice Results Laboratory Results: 11/25/18 03:58 11/23/18 14:57 Impressions: Abdomen MRI 11/23/18 00:00 IMPRESSION: Hepatic lesions suspicious for metastatic disease, possibly colon primary. Regional adenopathy. No ascites. Acute Abdomen Series 11/23/18 14:30 IMPRESSION: No evidence of intestinal obstruction or other acute intra- abdominal process. Formed stool throughout the colon. Additional findings of multiple hepatic lesions and possible rectosigmoid mass noted on prior exams. Case discussed with Dr. Doan at the time of interpretation. KUB X-Ray 11/24/18 00:00 IMPRESSION: NO RADIOGRAPHIC EVIDENCE FOR ACUTE ABDOMINAL DISEASE. Assessment & Plan - Diagnosis (1) Colonic mass Is this a current diagnosis for this admission?: Yes (2) Constipation Qualifiers: Constipation type: unspecified constipation type Qualified Code(s): K59.00 - Constipation, unspecified Is this a current diagnosis for this admission?: Yes (3) Liver lesion Is this a current diagnosis for this admission?: Yes - Plan Summary Plan Summary: This is a 58-year-old male status post colonoscopy. He was found to have a sigmoid mass. I am highly suspicious for colon cancer. He also has multiple liver lesions, suspicious for metastatic disease. If the patient is found to have metastatic colon cancer, chemotherapy would be more appropriate than surgery. I will however defer to Dr. Ni's expertise on this matter. No surgical intervention is planned at this time. director outpatient services is consulted for "insurance issues". Surgery will be available peripherally. Please renotify if Mediport is needed or with any concerns.
[2018-11-26] MEDS: IBUPROFEN 600 MG TABLET PO PRN (21:46)
[2018-11-26] MEDS: OLANZAPINE 5 MG TABLET PO SCH (21:49)
[2018-11-26] MEDS: ZOLPIDEM TARTRATE 5 MG TABLET PO SCH (23:22)
[2018-11-27] MEDS: ATENOLOL 50 MG TABLET PO SCH ×2 (10:03→21:49)
[2018-11-27] MEDS: FAMOTIDINE 20 MG TABLET PO SCH ×2 (10:03→21:49)
[2018-11-27] MEDS: ENOXAPARIN SODIUM INJ 40 MG/0.4 ML DISP.SYRIN SUBCUT SCH (10:04)
--- NOTE | 2018-11-27 10:28 | PDOC PROGRESS REPORT ---
Subjective Progress Note for:: 11/27/18 Subjective:: 58-year-old male admitted for possible colon cancer with metastasis to the liver. Seen by the surgical team/oncology team. Patient is going for colonoscopy today. He is drinking GoLYTELY. No acute events in the last 24 hours. Patient is a history of heavy alcohol use he is getting diazepam and Ativan as needed. comfortably in the bed denies any complaints. No acute events in the last 24 hours. Patient is afebrile. He was prepped to go for colonoscopy today. 11/26/2018 no acute events in the last 24 hours. Patient denies any complaints. Patient's mom is at bedside. She wants to know what is going on with her son. I explained to her that colonoscopy shows possible sigmoid mass and we are waiting for the biopsy reports. she understood and verbalized response. 2018 patient is afebrile no acute events in the last 24 hours. Colonoscopy done found to have a sigmoid mass biopsy results are pending. Liver MRI shows possible metastatic lesions. Awaiting oncology recommendations. Reason For Visit: CARCINOMA Physical Exam Vital Signs: Temp Pulse Resp BP Pulse Ox 97.6 F 70 15 147/89 H 99 11/27/18 08:00 11/27/18 08:00 11/27/18 08:00 11/27/18 08:00 11/27/18 08:00 Intake & Output 11/26/18 11/27/18 11/28/18 06:59 06:59 06:59 Intake Total 3414 3040 Output Total 10 Balance 3404 3040 Weight 81.9 kg 82.3 kg General appearance: PRESENT: no acute distress Head exam: PRESENT: atraumatic Eye exam: PRESENT: PERRLA Mouth exam: PRESENT: dry mucosa Neck exam: ABSENT: carotid bruit, JVD, lymphadenopathy, thyromegaly Respiratory exam: PRESENT: clear to auscultation filiberto. ABSENT: rales, rhonchi, wheezes Cardiovascular exam: PRESENT: RRR. ABSENT: diastolic murmur, rubs, systolic murmur GI/Abdominal exam: PRESENT: normal bowel sounds, soft. ABSENT: distended, guarding, mass, organolmegaly, rebound, tenderness Neurological exam: PRESENT: alert, awake, oriented to person, oriented to place, oriented to time, oriented to situation, CN II-XII grossly intact. ABSENT: motor sensory deficit Psychiatric exam: PRESENT: appropriate affect, normal mood. ABSENT: homicidal ideation, suicidal ideation Results Laboratory Results: 11/25/18 03:58 11/23/18 14:57 Impressions: Abdomen MRI 11/23/18 00:00 IMPRESSION: Hepatic lesions suspicious for metastatic disease, possibly colon primary. Regional adenopathy. No ascites. Acute Abdomen Series 11/23/18 14:30 IMPRESSION: No evidence of intestinal obstruction or other acute intra- abdominal process. Formed stool throughout the colon. Additional findings of multiple hepatic lesions and possible rectosigmoid mass noted on prior exams. Case discussed with Dr. Doan at the time of interpretation. KUB X-Ray 11/24/18 00:00 IMPRESSION: NO RADIOGRAPHIC EVIDENCE FOR ACUTE ABDOMINAL DISEASE. Assessment & Plan - Diagnosis (1) Colon cancer Is this a current diagnosis for this admission?: Yes Plan: 11/23/2018-patient had acute abdominal series was done today there is a concern about possible rectosigmoid mass is there is circumferential wall thickening and adjacent lymphadenopathy. Patient had a CT scan of the abdomen and pelvis 11/09/2019 there is a suspicion for hepatic lesions ultrasound of the liver was done at the same time showed questionable hepatic lesions suggestive of metastasis. As per the ER team patient was advised to follow-up with a specialist as an outpatient patient is unable to do so because of lack of insurance and came to the ER again today with complaints of severe constipation and difficulty in urination on and off for 1 month. The plan is to put him in a medical flow consultation with the surgery Dr. Santiago and a consultation with oncologist Dr. Ni was requested. Blood work for CA125 ,CEA levels were requested. Order for GoLYTELY prep.for colonoscopy tomorrow. PSA level is pending. Order for the MRI of the abdomen to get a better picture of the hepatic lesions. Patient is complaining of severe pain he does not want to be taking oxycodone because he had allergic to Tylenol so he could repeat nightly Motrin 800 mg p.o. every 6 hours as needed for pain. Subsided edema was requested for severe constipation. Going to request for stool for occult blood. 11/24/2018-acute abdominal series and CT abdomen shows thickening around the rectosigmoid area indicating high possibility of colon cancer. Hepatic lesions in the liver. MRI of the liver was done yesterday suggestive of metastatic lesions. Patient is going for colonoscopy today. Denies any complaints today. Cardiology on board also.CEA Levels is very high. 11/25/2018-patient went for a colonoscopy today preliminary report indicates sigmoid mass. 11/26/2018-patient went for colonoscopy it shows sigmoid mass is waiting for biopsy report. Dr. Santiago is going to come and talk to the patient today. 11/27/2018-colonoscopy with showed sigmoid mass he had hepatic lesions most likely primary is in the colon with metastatic lesions to the liver. Awaiting o ncology recommendations for further management. (2) Constipation Qualifiers: Constipation type: unspecified constipation type Qualified Code(s): K59.00 - Constipation, unspecified Is this a current diagnosis for this admission?: Yes Plan: 11/23/2018 patient is complaining of severe constipation on and off for the last 1 month. He had a 2 eat a bland diet try to take laxatives but nothing is helping him. He came to the ER 3 times for this problem. We are going to order for subsided edema, GoLYTELY prep for colonoscopy tomorrow. Also going to put him on MiraLAX 17 g twice a day. Patient denies using any opiates. Denies any visualization of the blood in the stool.. 11/24/2018-patient has several bowel movements today. Probably because of the GoLYTELY is drinking. Plan is to continue the present management. 11/25/2018-patient was a treated with GoLYTELY and edema is his constipation was resolved. 11/26/2018-patient denies any problems with constipation today. (3) Urinary retention Is this a current diagnosis for this admission?: Yes (4) Alcohol abuse Is this a current diagnosis for this admission?: Yes Plan: 11/23/2018 patient is giving the history of alcohol abuse he drinks almost on daily basis. Mainly drinks beer. Before coming to the hospital today he drank a couple of beers. We are going to watch for DTs placed him on diazepam as n eeded also Ativan as needed. Alcohol level on admission is 172. I am going to put him on a banana bag. 11/24/2018-patient has history of heavy alcohol use. He is on a banana bag. watching for DTs. He is on diazepam Ativan on as needed basis. Plan is to continue the present management. 11/25/2018-patient has history of heavy alcohol use. He is getting banana bag on daily basis he is on Ativan as needed. We are watching for DTs. 11/26/2018 patient has a history of heavy alcohol use he is receiving banana bag on daily basis and also Ativan as needed. No DTs observed since the admission. 11/27/2018 patient has history of alcohol abuse no signs and symptoms of DTs in the hospital he is Ativan was discontinued yesterday. (5) Smoker Is this a current diagnosis for this admission?: Yes Plan: 11/23/2018-patient is giving the history of smoking smokes half a pack per day smoking history of more than 20 years. Strongly advised him to quit smoking and smoking cessation counseling was provided for more than 10 minutes. Going to be placed on nicotine patch. 11/24/2018 patient is to history of chronic smoking on nicotine patch. Smoking counseling was provided again today. 11/25/2018-patient has history of chronic smoking he was placed on nicotine patch. 11/26/2018 patient has history of chronic smoking he is on nicotine patch, smoking counseling was provided again strongly advised him to quit smoking. 11/27/2018 patient is a chronic smoker he is on nicotine patch smoking counseling was provided again today. (6) Bipolar 1 disorder Is this a current diagnosis for this admission?: Yes Plan: 11/23/2018-patient is well-known to the psychiatric department in this hospital. He was admitted here in September under involuntary commitment. At that time he was admitted for heavy alcohol abuse with alcohol level of more than 336. At that time no medication was recommended by the psychiatric team. I am going to place him on Zyprexa 5 mg p.o. nightly. 11/24/2018-psych evaluation was done for bipolar disorder. No medication recommendations by the psychiatric team. 11/25/2018-patient has history of bipolar disorder psych consult was done no m edication recommendations were made. 11/26/2018-patient has history of bipolar disorder not on any medications at this moment patient is stable. 11/27/2018 she has history of bipolar disorder psych evaluation was done presently patient is not on any psych medications. (7) Liver lesion Is this a current diagnosis for this admission?: Yes Plan: 11/23/2018 the ultrasound that was done on 11/09/2018 indicates suspicious metastatic hepatic lesions. Requested for MRI of the abdomen to get further information. Hepatic panel was requested. CA 125 was requested. Consultation with Dr. Ni was requested. 11/24/2018 MRI of the liver was done shows multiple lesions in the liver probably metastatic in nature. 11/25/2018-possible metastasis to the liver. Primary probably colon cancer. oncology consult was requested. 11/26/2018 MRI of the liver indicates hepatic lesions most likely primaries in the colon. 11/27/2018 MRI of the liver shows hepatic lesions most likely representing metastasis from the primary colonic cancer. - Time Time Spent with patient: 15-24 minutes Smoking Cessation Education: over 10 minutes Medications reviewed and adjusted accordingly: Yes Anticipated discharge: Home
[2018-11-27] MEDS: IBUPROFEN 600 MG TABLET PO PRN ×2 (15:49→21:49)
[2018-11-27] MEDS: OLANZAPINE 5 MG TABLET PO SCH (21:49)
[2018-11-27] MEDS: ZOLPIDEM TARTRATE 5 MG TABLET PO SCH (22:23)
--- NOTE | 2018-11-28 08:22 | PDOC PROGRESS REPORT ---
Subjective Progress Note for:: 11/28/18 Subjective:: Patient feeling much better. Is able to void and have BM now without pain. No new complaints, except anxious to go home. Reason For Visit: CARCINOMA Physical Exam Vital Signs: Temp Pulse Resp BP Pulse Ox 98.3 F 78 18 144/78 H 99 11/28/18 00:22 11/28/18 00:22 11/28/18 00:22 11/28/18 00:22 11/28/18 00:22 Intake & Output 11/27/18 11/28/18 11/29/18 06:59 06:59 06:59 Intake Total 3040 1830 Balance 3040 1830 Weight 82.3 kg 82.3 kg General appearance: PRESENT: no acute distress, well-developed, well-nourished Respiratory exam: PRESENT: unlabored Extremities exam: ABSENT: pedal edema Neurological exam: PRESENT: alert, awake Psychiatric exam: PRESENT: appropriate affect Skin exam: PRESENT: normal color Results Laboratory Results: 11/25/18 03:58 11/23/18 14:57 Impressions: Abdomen MRI 11/23/18 00:00 IMPRESSION: Hepatic lesions suspicious for metastatic disease, possibly colon primary. Regional adenopathy. No ascites. Acute Abdomen Series 11/23/18 14:30 IMPRESSION: No evidence of intestinal obstruction or other acute intra- abdominal process. Formed stool throughout the colon. Additional findings of multiple hepatic lesions and possible rectosigmoid mass noted on prior exams. Case discussed with Dr. Doan at the time of interpretation. KUB X-Ray 11/24/18 00:00 IMPRESSION: NO RADIOGRAPHIC EVIDENCE FOR ACUTE ABDOMINAL DISEASE. Assessment & Plan - Diagnosis (1) Colonic mass Is this a current diagnosis for this admission?: Yes Plan: Await final pathology report from colonoscopy biopsy. However, MRI with evidence of liver mets as well. We discussed chemotherapy for 3-6 months, then repeat CT/MRI of abdomen. Patient is agreeable to this plan. Other option would be to have liver biopsy now, to confirm mets. However, I believe continuing to chemo with close follow-up is a reasonable plan. He will need port placement and custodial services manager to help arrange for insurance coverage. (2) Alcohol abuse Is this a current diagnosis for this admission?: Yes Plan: We discussed the fact that alcohol will make side effects from chemotherapy much worse and he will not be able to drink while he is on chemo for the next 6 months. He is agreeable to this. We also discussed trying to cut back on smoking. However, I have explained that the alcohol is much more important right now to stop than the cigs. (3) Urinary retention Is this a current diagnosis for this admission?: Yes Plan: Improved. I agree with plans for discharge and close follow-up in my office this week.
[2018-11-28] MEDS: ENOXAPARIN SODIUM INJ 40 MG/0.4 ML DISP.SYRIN SUBCUT SCH (09:20)
[2018-11-28] MEDS: ATENOLOL 50 MG TABLET PO SCH (09:20)
[2018-11-28] MEDS: FAMOTIDINE 20 MG TABLET PO SCH (09:20)
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
[2018-11-28 14:12] VITALS: BP 144/68
== END 2018-11-28 15:23 | disposition home or self-care (01) | DRG 375 ==
LOC: ER 13:41 → EH 16:36 → 5 22:57
PROVIDERS: ADMIT Internal Medicine; ATTEND Internal Medicine
PROC: HZ2ZZZZ Detoxification Services for Substance Abuse Treatment (ICD-10-PCS; 2018-11-23)
PROC: 0DBN8ZX Excision of Sigmoid Colon, Via Natural or Artificial Opening Endoscopic, Diagnostic (ICD-10-PCS; principal; 2018-11-25 13:00)
DX: C18.7 Malignant neoplasm of sigmoid colon (principal); C78.7 Secondary malignant neoplasm of liver and intrahepatic bile duct; K59.00 Constipation, unspecified; R33.9 Retention of urine, unspecified; Y90.6 Blood alcohol level of 120-199 mg/100 ml; F17.210 Nicotine dependence, cigarettes, uncomplicated; F31.9 Bipolar disorder, unspecified; I10 Essential (primary) hypertension; F20.9 Schizophrenia, unspecified; R59.0 Localized enlarged lymph nodes; K21.9 Gastro-esophageal reflux disease without esophagitis; F41.9 Anxiety disorder, unspecified; F10.229 Alcohol dependence with intoxication, unspecified; Z91.19 Patient's noncompliance with other medical treatment and regimen; Z88.6 Allergy status to analgesic agent; Z91.013 Allergy to seafood; Z88.8 Allergy status to other drugs, medicaments and biological substances; Z91.048 Other nonmedicinal substance allergy status; Z83.3 Family history of diabetes mellitus; Z82.49 Family history of ischemic heart disease and other diseases of the circulatory system
CPT/HCPCS: 36415; 45380; 74018; 74022; 74183; 80053; 80307; 81001; 82378; 83690; 84154; 85025; 86304; 86705; 86709; 87340; 88305; 99284; J0171; J1200; J1610; J1650; J2060; J2250; J2310; J2405; J3010; J3360; J3411; J3475; J3480; J3490; J7030

== ENCOUNTER 2018-12-20 07:52 | Day surgery (SDC) | payer MEDICAID ==
[~2018-12-20 07:52] MED LIST: ACETAMINOPHEN 325 MG TABLET PO PRN; CEFAZOLIN 1 GM/D5W RTU 1 GM/50 ML RTUPB IV PRN
[2018-12-20 10:15] LABS: HEMATOCRIT 43.3 % (37.9-51.0); MEAN CORPUSCULAR HEMOGLOBIN 33.4 pg (27.0-33.4); MEAN CORPUSCULAR HGB CONC 34.8 g/dL (32.0-36.0); MEAN CORPUSCULAR VOLUME 96 fl (80-97); PLATELET COUNT 296 10^3/uL (150-450); RED BLOOD COUNT 4.51 10^6/uL (4.35-5.55); RED CELL DISTRIBUTION WIDTH 13.7 % (11.5-14.0); WHITE BLOOD COUNT 10.3 10^3/uL (4.0-10.5)
[2018-12-20] MEDS ORDERED: CEFAZOLIN 1 GM/D5W RTU 1 GM/50 ML RTUPB IV ONE (10:31)
[2018-12-20] MEDS ORDERED: BACITRACIN INJ 50,000 UNIT VIAL ONE (10:52)
[2018-12-20] MEDS ORDERED: LIDOCAINE 0.5% INJ-PF (5 MG/ML) 50 ML SDV ONE (10:52)
[2018-12-20] MEDS ORDERED: FENTANYL CITRATE INJ/PF 100 MCG/2 ML AMPUL ONE (11:19)
[2018-12-20] MEDS ORDERED: MIDAZOLAM 2 MG/2 ML INJ ONE (11:19)
--- NOTE | 2018-12-20 12:10 | Discharge Summary ---
Discharge Summary (SDC) - Discharge Final Diagnosis: colon cancer Date of Surgery: 12/20/18 Condition: Good Treatment or Instructions: ok to be discharged to oncology clinic ok to shower tomorrow keep opsite on the port per oncology clinic instructions Referrals: ANUSHKA NAVARRO MD [Primary Care Provider] - Discharge Diet: As Tolerated Discharge Activity: Activity As Tolerated Report the Following to Your Physician Immediately: Nausea, Vomiting, Increase in Pain, Redness, Swelling, Warmth
--- NOTE | 2018-12-20 12:13 | Operative Report ---
Operative Report DATE OF SURGERY: 12/20/18 PREOPERATIVE DIAGNOSIS: colon cancer POSTOPERATIVE DIAGNOSIS: colon cancer OPERATION: portacath placement left chest ANESTHESIA: Moderate Sedation TISSUE REMOVED OR ALTERED: none COMPLICATIONS: none ESTIMATED BLOOD LOSS: minimal
--- NOTE | 2018-12-20 12:52 | RADIOLOGY REPORT (SQ) ---
EXAM DESCRIPTION: PORTACATH INSERTION COMPLETED DATE/TIME: 12/20/2018 12:23 pm REASON FOR STUDY: C18.7 COLON CA C18.7 MALIGNANT NEOPLASM OF SIGMOID COLON COMPARISON: None. FLUOROSCOPY TIME: 0.4 minutes 1 images saved to PACS. TECHNIQUE: Intra-operative images acquired during surgical procedure to evaluate progress. NUMBER OF IMAGES: 1 LIMITATIONS: None. FINDINGS: Intraoperative fluoroscopic images obtained to evaluate progress. Single image demonstrat es left subclavian based chest port with catheter tip at SVC. Please see operative report for detail ed description of procedure. IMPRESSION: IMAGE(S) OBTAINED DURING PROCEDURE. COMMENT: Quality ID [id number]: Final reports for procedures using fluoroscopy that document radiation exp osure indices, or exposure time and number of fluorographic images (if radiation exposure indices are not available) Please consult full operative report of the attending physician for description of the procedure. TECHNICAL DOCUMENTATION: JOB ID: [id number] [employer]- All Rights Reserved Reading location - IP/workstation name: [email or web address]
--- NOTE | 2018-12-20 13:12 | OPERATIVE REPORT E ---
Operative Report NAME: HAYDEE SANTOS : 1960 AGE: 58Y DATE OF SURGERY: 12/20/2018 ROOM: PREOPERATIVE DIAGNOSIS: METASTATIC COLON CANCER. POSTOPERATIVE DIAGNOSIS: METASTATIC COLON CANCER. OPERATION: Port-A-Cath placement, left chest. SURGEON: AMINAH NEUMANN M.D. PROCEDURE: Patient was brought to the mine laborer, awake, alert, and in stable condition and placed on the mine laborer table and was given IV sedation for the procedure. After giving the patient 2 mg of Versed he was prepped and draped in the usual sterile manner for the procedure. He was then given another 50 mg of fentanyl. We anesthetized the skin underneath the left clavicle with 1% lidocaine plain and then another position on the left anterior chest just above the nipple with 1% lidocaine plain for the port. A subclavian stick was then made with a 16-gauge needle and the subclavian vein was cannulated on the first stick. The J-wire was placed through the needle using a sublingual technique and confirmed in superior vena cava on fluoroscopy. We then used the tear-away introducer dilator combination placed over the wire into the superior vena cava, again confirmed by fluoroscopy. We then used an 8-Kyr[place]z Port-A-Cath catheter placed into the tear-away introducer which was torn away. The tip of the catheter was lying in the superior vena cava above the right atrium. We then made a small incision over the left nipple on the anterior chest about 2 cm long and created a pocket for the port. We then used a tunnel maker supplied with the kit and tunneled the catheter from the subclavian stick site to the port site on the anterior chest wall on the left side. The catheter was then attached to the port and good flow resulted and was easy to inject. We confirmed good position using fluoroscopy. We then heparinized the system with a heparinized saline solution. We closed the subcutaneous tissue with interrupted 3-0 Vicryl suture and then 4-0 Rapid was used to close the skin on both the port site and the subclavian stick site. A sterile dressing was applied. We then placed the Sousa needle into the port for use by oncology who will use the port today. The patient was then transferred to recovery in stable condition. No complications. Blood loss was negligible. Sponge and needle counts were correct x2. DICTATING PHYSICIAN: AMINAH NEUMANN M.D. [id number] PHY#: [id number] ID: [id number] JOB#: [id number] ACCT: [id number] cc:AMINAH NEUMANN M.D. >
[2018-12-20 17:53] VITALS: BP 138/96
== END 2018-12-20 13:20 | disposition home or self-care (01) ==
LOC: CCL 07:52
PROVIDERS: ATTEND Surgery
DX: C78.5 Secondary malignant neoplasm of large intestine and rectum (principal); F17.210 Nicotine dependence, cigarettes, uncomplicated; I10 Essential (primary) hypertension; Z79.899 Other long term (current) drug therapy; Z01.818 Encounter for other preprocedural examination
CPT/HCPCS: 36415; 85027; 36561; 77001; C1752; C1788; J2250; J3490 ×2; J0690; J3010; J1644

== ENCOUNTER 2018-12-21 07:54 | Outpatient (CLI) | payer MEDICAID ==
[~2018-12-21 07:54] MED LIST changes: -ACETAMINOPHEN 325 MG TABLET PO PRN; -CEFAZOLIN 1 GM/D5W RTU 1 GM/50 ML RTUPB IV PRN; +CONTAINER EMPTY IV PRN; +DEXAMETHASONE SOD PHOSPHATE 10 MG in NORMAL SALINE 50 ML IV PRN; +DEXAMETHASONE SOD PHOSPHATE IV PRN; +DEXTROSE 5% IV PRN; +DEXTROSE 5%-WATER 250 ML IV PRN; +DISPOSABLE IV PRN; +FLUOROURACIL IV PRN; +LEUCOVORIN CALCIUM IV PRN; +NORMAL SALINE IV PRN; +OXALIPLATIN IV PRN; +PALONOSETRON 0.25 MG/5 ML SDV IV PRN; +WATER IV PRN
[2018-12-21 08:54] VITALS: BP 132/71
[2018-12-21] MEDS ORDERED: CONTAINER EMPTY IV PRN (10:00)
[2018-12-21] MEDS ORDERED: FLUOROURACIL IV PRN (10:00)
== END 2018-12-21 12:00 | disposition home or self-care (01) ==
LOC: II 07:54 → 5TH 07:55 → II 12:00
PROVIDERS: ATTEND Internal Medicine Hematology & Oncology
PROC: 3E04305 Introduction of Other Antineoplastic into Central Vein, Percutaneous Approach (ICD-10-PCS; principal; 2018-12-21)
PROC: 3E0433Z Introduction of Anti-inflammatory into Central Vein, Percutaneous Approach (ICD-10-PCS; 2018-12-21)
PROC: 3E043GC Introduction of Other Therapeutic Substance into Central Vein, Percutaneous Approach (ICD-10-PCS; 2018-12-21)
DX: Z51.11 Encounter for antineoplastic chemotherapy (principal); C18.7 Malignant neoplasm of sigmoid colon
CPT/HCPCS: 96409; 96413; 96415; 96416; 96367; 96375; 96417; A4222; J0640; J3490 ×3; J9190; J7060; J1100; J9263; J2469; 96368; J7050

== ENCOUNTER 2019-01-04 07:21 | Outpatient (CLI) | payer MEDICAID ==
[~2019-01-04 07:21] MED LIST changes: -DEXAMETHASONE SOD PHOSPHATE IV PRN; -NORMAL SALINE IV PRN
[2019-01-04 08:23] VITALS: BP 145/78
== END 2019-01-04 13:00 | disposition home or self-care (01) ==
LOC: II 07:21 → 5TH 07:25 → II 13:00
PROVIDERS: ATTEND Internal Medicine Hematology & Oncology
PROC: 3E04305 Introduction of Other Antineoplastic into Central Vein, Percutaneous Approach (ICD-10-PCS; principal; 2019-01-04)
PROC: 3E043GC Introduction of Other Therapeutic Substance into Central Vein, Percutaneous Approach (ICD-10-PCS; 2019-01-04)
PROC: 3E0433Z Introduction of Anti-inflammatory into Central Vein, Percutaneous Approach (ICD-10-PCS; 2019-01-04)
DX: Z51.11 Encounter for antineoplastic chemotherapy (principal); C18.7 Malignant neoplasm of sigmoid colon
CPT/HCPCS: 96409; 96413; 96415; 96416; 96367; 96375; 96417; A4222; J3490 ×3; J9190; J7060; J1100; J9263; J2469; 96368; 96411

== ENCOUNTER 2019-01-18 07:22 | Outpatient (CLI) | payer MEDICAID ==
[~2019-01-18 07:22] MED LIST changes: -CONTAINER EMPTY IV PRN; +FLUOROURACIL 4,656 MG in CONTAINER,EMPTY 1 EACH IV PRN
[2019-01-18 10:24] VITALS: BP 148/87
== END 2019-01-18 11:45 | disposition home or self-care (01) ==
LOC: II 07:22 → 5TH 07:25 → II 11:45
PROVIDERS: ATTEND Internal Medicine Hematology & Oncology
PROC: 3E04305 Introduction of Other Antineoplastic into Central Vein, Percutaneous Approach (ICD-10-PCS; principal; 2019-01-18)
PROC: 3E0433Z Introduction of Anti-inflammatory into Central Vein, Percutaneous Approach (ICD-10-PCS; 2019-01-18)
PROC: 3E043GC Introduction of Other Therapeutic Substance into Central Vein, Percutaneous Approach (ICD-10-PCS; 2019-01-18)
DX: Z51.11 Encounter for antineoplastic chemotherapy (principal); C18.7 Malignant neoplasm of sigmoid colon
CPT/HCPCS: 96409; 96413; 96415; 96416; 96365; 96374; 96417; A4222; J0640; J3490 ×3; J9190; J7060; J1100; J9263; J2469; 96367; 96368; 96375; 96411

== ENCOUNTER 2019-02-16 17:57 | Emergency (ER) | payer MEDICAID ==
[2019-02-16] MEDS ORDERED: HALOPERIDOL LACTATE INJ 5 MG/1 ML VIAL IM ONE (18:42)
[2019-02-16] MEDS ORDERED: MIDAZOLAM 2 MG/2 ML INJ IM ONE (18:43)
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
[2019-02-16 19:07] LABS: APPEARANCE,URINE CLEAR; BILIRUBIN,URINE NEGATIVE (NEGATIVE); COLOR,URINE STRAW; GLUCOSE, URINE NEGATIVE (NEGATIVE); KETONES,URINE NEGATIVE (NEGATIVE); LEUKOCYTE ESTERASE,URINE NEGATIVE (NEGATIVE); NITRITE,URINE NEGATIVE (NEGATIVE); PROTEIN,URINE NEGATIVE (NEGATIVE); URINE SPECIFIC GRAVITY 1.006; UROBILINOGEN,URINE NEGATIVE mg/dL (<2.0)
[2019-02-16 19:28] LABS: URINE AMPHETAMINES SCREEN NEGATIVE; URINE BARBITURATES SCREEN NEGATIVE; URINE BENZODIAZEPINES SCREEN NEGATIVE; URINE COCAINE SCREEN NEGATIVE; URINE MARIJUANA (THC) SCREEN NEGATIVE; URINE METHADONE SCREEN NEGATIVE; URINE PHENCYCLIDINE SCREEN NEGATIVE
[2019-02-16 19:41] LABS: ABSOLUTE BASOPHILS # (AUTO) 0.1 10^3/uL (0.0-0.2); ABSOLUTE EOSINOPHILS # (AUTO) 0.2 10^3/uL (0.0-0.6); ABSOLUTE MONOCYTES (AUTO) 1.1 10^3/uL (0.1-1.4); ABSOLUTE NEUT (AUTO) 3.3 10^3/uL (1.7-8.2); BASOPHILS % (AUTO) 1.2 % (0-2); EOSINOPHILS % (AUTO) 1.9 % (0-6); HEMATOCRIT 41.9 % (37.9-51.0); HEMOGLOBIN 14.9 g/dL (13.5-17.0); LYMPHOCYTES % (AUTO) 46.2 % (13-45); MEAN CORPUSCULAR HEMOGLOBIN 34.4 pg (27.0-33.4); MEAN CORPUSCULAR HGB CONC 35.6 g/dL (32.0-36.0); MEAN CORPUSCULAR VOLUME 97 fl (80-97); MONOCYTES % (AUTO) 12.8 % (3-13); PLATELET COUNT 311 10^3/uL (150-450); RED BLOOD COUNT 4.34 10^6/uL (4.35-5.55); RED CELL DISTRIBUTION WIDTH 17.8 % (11.5-14.0); SEGMENTED NEUTROPHILS % (AUTO) 37.9 % (42-78); TOTAL CELLS COUNTED % (AUTO) 100 %; WHITE BLOOD COUNT 8.6 10^3/uL (4.0-10.5)
[2019-02-16 19:56] LABS: ALANINE AMINOTRANSFERASE 59 U/L (21-72); ALBUMIN 4.4 g/dL (3.5-5.0); ALKALINE PHOSPHATASE 125 U/L (38-126); ANION GAP 12 (5-19); ASPARTATE AMINO TRANSFERASE 53 U/L (17-59); BILIRUBIN,DIRECT 0.3 mg/dL (0.0-0.4); BILIRUBIN,TOTAL 0.3 mg/dL (0.2-1.3); BLOOD UREA NITROGEN 8 mg/dL (7-20); CALCIUM 9.4 mg/dL (8.4-10.2); CARBON DIOXIDE 24 mmol/L (22-30); CHLORIDE 108 mmol/L (98-107); GLUCOSE 122 mg/dL (75-110); POTASSIUM 3.9 mmol/L (3.6-5.0); SODIUM 143.6 mmol/L (137-145)
[2019-02-16 20:08] LABS: ACETAMINOPHEN < 10 ug/mL (10-30); SALICYLATE < 1.0 mg/dL (2.0-20.0)
[2019-02-16 20:09] LABS: ALCOHOL 395 mg/dL (NONE DETECTED)
--- NOTE | 2019-02-17 07:46 | EKG REPORT ---
SEVERITY:- OTHERWISE NORMAL ECG - SINUS RHYTHM BORDERLINE LEFT AXIS DEVIATION : Confirmed by: Stevenson Rodriguez MD 17-Feb-2019 07:45:58
--- NOTE | 2019-02-17 09:51 | ER Document Report ---
Doctor's Note Notes: 02/17/19 09:49 Rounds: Chart reviewed. Patient is sleeping soundly and does not awaken to my voice greeting. Patient being evaluated for alcohol intoxication and suicidal ideation. This is an apparent frequent presentation of this patient. He was very aggressive last night and required restraints. Labs showed a blood alcohol of 395. Remaining labs unremarkable. Vital signs are all normal. Patient appears to be medically stable for transfer or discharge. Alfredo Green MD
--- NOTE | 2019-02-17 11:01 | PSYCHOLOGICAL NOTE ---
Psych Note - Psych Note Date seen by psych provider: 02/17/19 Time seen by psych provider: 08:00 Psych Note: Reason for Consult: patient requested/ alcohol intoxication Patient is a 58-year-old male well-known to the department, history of frequent presentations while intoxicated stating that he is suicidal and needs mental health assistance. Patient denies any thoughts of wanting to harm himself or others stating "I was drunk... You know me." He confirms that he started treatment for his cancer however did not like how it made him feel. He is undecided if he wants to continue treatment. He denies this is suicidal ideation rather choice and treatment options for his cancer. Patient is alert and orientated to person,place, time and circumstance. Mood is euthymic with congruent affect as evidenced by smiling and laughing with clinician. Patient denies current suicidal and homicidal ideation; "No, I was drunk...you know me." Delusions are absent and behaviour is congruent with an intact reality based presentation, ie organized and linear thought processes. Attention and concentration are currently good. insight, judgment and impulse control are historically poor due to substance abuse. No medication recommendations at this time Diagnosis: 303.00 (F10.229) Alcohol Intoxication, With Use Disorder, Severe 296.80 (F31.9) Unspecified Bipolar and Related Disorder, per history by patient Impression/Plan: Patient is cleared from acute psychiatric services. This patient is well known to this clinician and department; he has a well documented history of coming to [facility] ED intoxicated reporting suicidal and/or homicidal ideation and then upon sobering he presents euthymic and denies concerns of harming himself or others. He currently denies suicidal and homicidal ideation. Patient stated to clinician "No, I was drunk...you know me." There was no behaviours indicating psychosis. He has had time to sober up and is no longer under the influence of alcohol. Consulted with Dr. Groves regarding the management and care of patient. ED Physician in agreement with recommendation.
[2019-02-17 11:48] VITALS: BP 138/82
== END 2019-02-17 11:25 | disposition home or self-care (01) ==
LOC: ER 17:57
DX: F10.129 Alcohol abuse with intoxication, unspecified (principal); R45.1 Restlessness and agitation; F17.200 Nicotine dependence, unspecified, uncomplicated; I10 Essential (primary) hypertension
CPT/HCPCS: 93005; 99285; 96372; 36415; 80307 ×4; 85025; 80053; 81001; 93010; J2250; J1630

== ENCOUNTER 2019-04-22 13:14 | Emergency (ER) | payer MEDICAID ==
[2019-04-22 13:34] VITALS: BP 155/100
== END 2019-04-22 14:00 | disposition left against medical advice (07) ==
LOC: ER 13:14
DX: Z53.21 Procedure and treatment not carried out due to patient leaving prior to being seen by health care provider (principal)

== ENCOUNTER → 2019-04-28 | Outpatient (CLI) | payer MEDICAID ==
--- NOTE | 2019-04-28 08:38 | RADIOLOGY REPORT (SQ) ---
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 TECHNIQUE: CT scan of the chest performed using helical scanning technique with dynamic intravenous contrast injection. Images reviewed with lung, soft tissue and bone windows. Reconstructed coronal and sagittal MPR and MIP images reviewed. All images stored on PACS. All CT scanners at this facility use dose modulation, iterative reconstruction, and/or weight based d osing when appropriate to reduce radiation dose to as low as reasonably achievable (ALARA). [facility]: Dose Right [facility]: CareDose [facility]: Dose Right [facility]: Teradose 4D [facility]: [employer] CONTRAST TYPE AND DOSE: 98 mL Isovue 370- low osmolar. RENAL FUNCTION: Creatinine 0.8 RADIATION DOSE: . LIMITATIONS: None. FINDINGS: LUNGS AND PLEURA: No opacities, nodules, masses. No pneumothorax. No effusions. HILAR AND MEDIASTINAL STRUCTURES: No identified masses or abnormal nodes. HEART AND VASCULAR STRUCTURES: No aneurysm or dissection. No central pulmonary emboli. No pericardi al effusion. HARDWARE: None in the chest. UPPER ABDOMEN: There is fatty infiltration of the liver. THYROID AND OTHER SOFT TISSUES: No masses. No adenopathy. BONES: No significant finding. OTHER: No other significant finding. IMPRESSION: No evidence of metastatic disease in the chest. TECHNICAL DOCUMENTATION: JOB ID: [id number] Quality ID # [id number]: Final reports with documentation of one or more dose reduction techniques (e.g., Au tomated exposure control, adjustment of the mA and/or kV according to patient size, use of iterative reconstruction technique) 2010 [employer]- All Rights Reserved Reading location - IP/workstation name: [email or web address]
--- NOTE | 2019-04-28 08:42 | RADIOLOGY REPORT (SQ) ---
EXAM DESCRIPTION: CT ABD/PELVIS WITH IV ORAL COMPLETED DATE/TIME: 04/28/2019 8:25 am REASON FOR STUDY: COLON CA C18.7 MALIGNANT NEOPLASM OF SIGMOID COLON COMPARISON: 11/09/2018, MRI dated 11/23/2018 TECHNIQUE: CT scan of the abdomen and pelvis performed using helical scanning technique with dynamic intravenous contrast injection. No oral contrast. Images reviewed with lung, soft tissue, and bone windows. Reconstructed coronal and sagittal MPR images reviewed. Delayed images for evaluation of the urinary system also acquired. All images stored on PACS. All CT scanners at this facility use dose modulation, iterative reconstruction, and/or weight based d osing when appropriate to reduce radiation dose to as low as reasonably achievable (ALARA). [facility]: Dose Right [facility]: CareDose [facility]: Dose Right [facility]: Teradose 4D [facility]: [employer] CONTRAST TYPE AND DOSE: contrast/concentration: Isovue 350.00 mg/ml; Total Contrast Delivered: 98.0 ml; Total Saline Delivered: 72.0 ml RENAL FUNCTION: 0.8 RADIATION DOSE: CT Rad equipment meets quality standard of care and radiation dose reduction techniq ues were employed. CTDIvol: 7.8 - 8.4 mGy. DLP: 1235 mGy-cm.. LIMITATIONS: None. FINDINGS: LOWER CHEST: No significant findings. No nodules or infiltrates. Small lymph nodes along the anterior pericardium are smaller in size when compared to prior study. LIVER: There is fatty infiltration of liver. The hepatic lesions previously described in the dome of liver are less apparent on today's study. Minimal asymmetric enhancement is seen along the dome of the liver. The focal hypoattenuating lesions are no longer appreciated. SPLEEN: Normal size. No focal lesions. PANCREAS: No masses. No significant calcifications. No adjacent inflammation or peripancreatic fluid collections. Pancreatic duct not dilated. GALLBLADDER: No identified stones by CT criteria. No inflammatory changes to suggest cholecystitis. ADRENAL GLANDS: No significant masses or asymmetry. RIGHT KIDNEY AND URETER: No solid masses. No significant calcifications. No hydronephrosis or hyd roureter. LEFT KIDNEY AND URETER: No solid masses. No significant calcifications. No hydronephrosis or hydr oureter. AORTA AND VESSELS: No aneurysm. No dissection. Renal arteries, SMA, celiac without stenosis. RETROPERITONEUM: No retroperitoneal adenopathy, hemorrhage or masses. BOWEL AND PERITONEAL CAVITY: No masses or inflammatory changes. No free fluid or peritoneal masses. APPENDIX: Not visualized. PELVIS: No mass. No free fluid. Normal bladder. ABDOMINAL WALL: There are small bilateral inguinal hernias containing omental fat only. BONES: No significant or acute findings. OTHER: No other significant finding. IMPRESSION: Hepatic lesions have largely resolved consistent with response to therapy. No new findi ngs. TECHNICAL DOCUMENTATION: JOB ID: [id number] Quality ID # [id number]: Final reports with documentation of one or more dose reduction techniques (e.g., Au tomated exposure control, adjustment of the mA and/or kV according to patient size, use of iterative reconstruction technique) 2010 [employer]- All Rights Reserved Reading location - IP/workstation name: [email or web address]
== END ==
LOC: RAD 07:39
PROVIDERS: ATTEND Internal Medicine Hematology & Oncology
DX: C18.7 Malignant neoplasm of sigmoid colon (principal)
CPT/HCPCS: 71260; 74177; 82565

== ENCOUNTER 2019-09-06 03:58 | Emergency (ER) | payer MEDICAID ==
[2019-09-06] MEDS ORDERED: HALOPERIDOL LACTATE INJ 5 MG/1 ML VIAL IM ONE (04:19)
[2019-09-06] MEDS ORDERED: HALOPERIDOL LACTATE INJ 5 MG/1 ML VIAL ONE (04:19)
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
[2019-09-06 05:06] LABS: ABSOLUTE BASOPHILS # (AUTO) 0.1 10^3/uL (0.0-0.2); ABSOLUTE EOSINOPHILS # (AUTO) 0.1 10^3/uL (0.0-0.6); ABSOLUTE LYMPHOCYTES (AUTO) 3.4 10^3/uL (0.5-4.7); ABSOLUTE MONOCYTES (AUTO) 1.1 10^3/uL (0.1-1.4); ABSOLUTE NEUT (AUTO) 5.1 10^3/uL (1.7-8.2); BASOPHILS % (AUTO) 0.9 % (0-2); EOSINOPHILS % (AUTO) 1.5 % (0-6); HEMATOCRIT 44.1 % (37.9-51.0); HEMOGLOBIN 15.1 g/dL (13.5-17.0); LYMPHOCYTES % (AUTO) 34.3 % (13-45); MEAN CORPUSCULAR HEMOGLOBIN 33.5 pg (27.0-33.4); MEAN CORPUSCULAR HGB CONC 34.3 g/dL (32.0-36.0); MEAN CORPUSCULAR VOLUME 98 fl (80-97); MONOCYTES % (AUTO) 11.2 % (3-13); PLATELET COUNT 289 10^3/uL (150-450); RED BLOOD COUNT 4.51 10^6/uL (4.35-5.55); RED CELL DISTRIBUTION WIDTH 13.5 % (11.5-14.0); SEGMENTED NEUTROPHILS % (AUTO) 52.1 % (42-78); TOTAL CELLS COUNTED % (AUTO) 100 %; WHITE BLOOD COUNT 9.8 10^3/uL (4.0-10.5)
[2019-09-06 05:09] LABS: APPEARANCE,URINE CLEAR; BILIRUBIN,URINE NEGATIVE (NEGATIVE); COLOR,URINE STRAW; GLUCOSE, URINE NEGATIVE (NEGATIVE); KETONES,URINE NEGATIVE (NEGATIVE); LEUKOCYTE ESTERASE,URINE NEGATIVE (NEGATIVE); NITRITE,URINE NEGATIVE (NEGATIVE); PROTEIN,URINE NEGATIVE (NEGATIVE); URINE SPECIFIC GRAVITY 1.003; UROBILINOGEN,URINE NEGATIVE mg/dL (<2.0)
[2019-09-06 05:23] LABS: ALBUMIN 4.4 g/dL (3.5-5.0); ALKALINE PHOSPHATASE 167 U/L (38-126); ANION GAP 17 (5-19); ASPARTATE AMINO TRANSFERASE 43 U/L (17-59); BILIRUBIN,DIRECT 0.2 mg/dL (0.0-0.4); BILIRUBIN,TOTAL 0.4 mg/dL (0.2-1.3); BLOOD UREA NITROGEN 9 mg/dL (7-20); CALCIUM 9.2 mg/dL (8.4-10.2); CARBON DIOXIDE 19 mmol/L (22-30); CHLORIDE 111 mmol/L (98-107); GLUCOSE 106 mg/dL (75-110); POTASSIUM 4.4 mmol/L (3.6-5.0)
[2019-09-06 05:24] LABS: ACETAMINOPHEN < 10 ug/mL (10-30); SALICYLATE < 1.0 mg/dL (2.0-20.0)
[2019-09-06 05:24] LABS: URINE AMPHETAMINES SCREEN NEGATIVE; URINE BARBITURATES SCREEN NEGATIVE; URINE BENZODIAZEPINES SCREEN NEGATIVE; URINE COCAINE SCREEN NEGATIVE; URINE MARIJUANA (THC) SCREEN NEGATIVE; URINE METHADONE SCREEN NEGATIVE; URINE PHENCYCLIDINE SCREEN NEGATIVE
[2019-09-06 05:35] LABS: ALCOHOL 354 mg/dL (NONE DETECTED)
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
--- NOTE | 2019-09-06 15:41 | ER Document Report ---
Doctor's Note Notes: 09/06/19 15:40 During a.m. rounds patient sleeping at the bedside. I assessed the patient's labs, vitals, and records. No concerning findings. Patient denies any acute complaints. Patient is cleared for disposition by psychiatry. It appears the patient is medically stable for transfer or discharge and mental health wishes to discharge patient with close follow-up services in place.
[2019-09-06 15:54] VITALS: BP 125/77
== END 2019-09-06 15:57 | disposition home or self-care (01) ==
LOC: ER 03:58
DX: F10.129 Alcohol abuse with intoxication, unspecified (principal); Y90.8 Blood alcohol level of 240 mg/100 ml or more; R45.850 Homicidal ideations; I10 Essential (primary) hypertension; Z78.1 Physical restraint status; Z85.038 Personal history of other malignant neoplasm of large intestine; Z88.8 Allergy status to other drugs, medicaments and biological substances; Z91.013 Allergy to seafood; Z91.048 Other nonmedicinal substance allergy status
CPT/HCPCS: 36415; 80307 ×4; 85025; 80053; 81001; J1630; 96372; 99285

== ENCOUNTER 2019-09-15 01:19 | Emergency (ER) | payer OTHER, MEDICAID ==
[2019-09-15 01:45] VITALS: BP 125/73
--- NOTE | 2019-09-15 02:53 | RADIOLOGY REPORT (SQ) ---
EXAM DESCRIPTION: XR HAND 3 OR MORE VIEWS COMPLETED DATE/TME: 09/15/2019 00:00 CLINICAL HISTORY: 58 years, Male, pain in right hand COMPARISON: None. NUMBER OF VIEWS: 3 TECHNIQUE: 3 views right hand LIMITATIONS: None. FINDINGS: Negative for acute fracture or dislocation. Old fracture of the ulnar styloid and fifth metacarpal. Minor degenerative changes throughout the hand. IMPRESSION: No acute osseous abnormality copyright 2010 [employer]- All Rights Reserved
== END 2019-09-15 04:04 | disposition left against medical advice (07) ==
LOC: ER 01:19
DX: Z53.21 Procedure and treatment not carried out due to patient leaving prior to being seen by health care provider (principal)

== ENCOUNTER → 2019-10-05 | Outpatient (CLI) | payer MEDICAID ==
--- NOTE | 2019-10-05 10:40 | RADIOLOGY REPORT (SQ) ---
EXAM DESCRIPTION: CT CHEST WITH; CT ABD/PELVIS WITH IV ORAL COMPLETED DATE/TIME: 10/05/2019 9:31 am; 10/05/2019 9:35 am REASON FOR STUDY: C18.9 MALIGNANT NEOPLASM OF COLON, UNSPECIFIED C18.9 MALIGNANT NEOPLASM OF COLON, UNSPECIFIED COMPARISON: CT chest abdomen pelvis 04/28/2019 CT abdomen pelvis 11/09/2018 CONTRAST TYPE AND DOSE: contrast/concentration: Isovue 350.00 mg/ml; Total Contrast Delivered: 96.0 ml; Total Saline Delivered: 71.0 ml RENAL FUNCTION: Creatinine 0.8 TECHNIQUE: CT scan of the chest performed using helical scanning technique with dynamic intravenous contrast injection. Images reviewed with lung, soft tissue and bone windows. Reconstructed coronal a nd sagittal MPR images reviewed. All images stored on PACS. CT scan of the abdomen and pelvis performed with intravenous and with oral contrastusing helical scan del technique with dynamic intravenous contrast injection. Images reviewed with lung, soft tissue a nd bone windows. Reconstructed coronal and sagittal MPR images reviewed. Delayed images for evaluat ion of the urinary system also acquired and evaluated. All images stored on PACS. All CT scanners at this facility use dose modulation, iterative reconstruction, and/or weight based d osing when appropriate to reduce radiation dose to as low as reasonably achievable (ALARA). [facility]: Dose Right [facility]: CareDose [facility]: Dose Right [facility]: Teradose 4D [facility]: [employer] RADIATION DOSE: CT Rad equipment meets quality standard of care and radiation dose reduction techniq ues were employed. CTDIvol: 6.7 - 7.4 mGy. DLP: 1135 mGy-cm. . LIMITATIONS: None. FINDINGS: CHEST: LUNGS AND PLEURA: There are now innumerable subcentimeter lung parenchymal nodules scattered througho ut the periphery of both lungs. A 10 mm nodule is present in the left posterior lower lobe on axial image 73. Findings are worrisome for metastatic disease. No significant pleural effusion. No pneumothorax. Airways are patent. HILAR AND MEDIASTINAL STRUCTURES: 1 cm left para-aortic/ aortocaval lymph node axial image 43. 1.2 c m pericardial phrenic lymph nodes axial image 45. HEART AND VASCULAR STRUCTURES: No aneurysm or dissection. No central pulmonary emboli. No pericardi al effusion. HARDWARE: Left-sided permanent central line tip superior vena cava THYROID AND OTHER SOFT TISSUES: No masses. No adenopathy. BONES: No significant finding. OTHER: No other significant finding. ABDOMEN AND PELVIS: LIVER: 10 mm hypodensity in the left lobe liver worrisome for metastatic disease axial image 26. SPLEEN: Normal size. No focal lesions. PANCREAS: No masses. No significant calcifications. No adjacent inflammation or peripancreatic fluid collections. Pancreatic duct not dilated. GALLBLADDER: No identified stones by CT criteria. No inflammatory changes to suggest cholecystitis. ADRENAL GLANDS: No significant masses or asymmetry. RIGHT KIDNEY AND URETER: No solid masses. No significant calcification. No hydronephrosis or hydroure ter. LEFT KIDNEY AND URETER: No solid masses. No significant calcification. No hydronephrosis or hydrouret er. AORTA AND VESSELS: No aneurysm. No dissection. Renal arteries, SMA, celiac without stenosis. RETROPERITONEUM: 1.4 x 1.5 cm lymph nodes are present along the celiac region. A 2 x 1.4 cm portacav al space lymph node is also present BOWEL AND PERITONEAL CAVITY: Patient drank oral contrast. No CT evidence of bowel obstruction or kelechi e intraperitoneal air or fluid. There are diffuse omental metastatic lesions causing soft tissue den sity in the mesenteric/ omental fat in the midline abdomen on axial image 57, and in the mesenteric f at along the splenic flexure colon axial image 37. APPENDIX: Surgically absent ABDOMINAL WALL: Tiny fat containing ventral hernia subxiphoid region, axial image 27. Anterior abdom inal wall defect less than 7 mm in diameter PELVIS: No mass or free fluid. Normal bladder. BONES: No significant or acute findings. OTHER: No other significant finding. IMPRESSION: New Lung parenchymal metastatic disease. New Mediastinal adenopathy. New Upper abdominal retroperitoneal adenopathy. Omental and mesenteric peritoneal metastatic deposit s. Recurrent left lobe liver 1 cm metastatic lesion TECHNICAL DOCUMENTATION: JOB ID: [id number] Quality ID # [id number]: Final reports with documentation of one or more dose reduction techniques (e.g., Au tomated exposure control, adjustment of the mA and/or kV according to patient size, use of iterative reconstruction technique) 2010 [employer]- All Rights Reserved Reading location - IP/workstation name: [email or web address]
--- NOTE | 2019-10-05 16:16 | RADIOLOGY REPORT (SQ) ---
EXAM DESCRIPTION: NM WHOLE BODY BONE SCAN COMPLETED DATE/TIME: 10/05/2019 12:07 pm REASON FOR STUDY: C18.9 MALIGNANT NEOPLASM OF COLON, UNSPECIFIED C18.9 MALIGNANT NEOPLASM OF COLON, UNSPECIFIED COMPARISON: CT chest abdomen pelvis 10/05/2019 RADIONUCLIDE AND DOSE: 20 millicuries Tc99m HDP. The route of agent administration: Intravenous. ADDITIONAL DRUGS AND DOSES: None. TECHNIQUE: Routine delayed images at 3 hours post radionuclide injection acquired of the bony skelet on including anterior and posterior whole-body projections and additional focused images as needed. LIMITATIONS: None. FINDINGS: BONES: There is focal uptake in the left side of the mandible. No other significant abnor mal uptake is present. KIDNEYS: Symmetric excretion without obstruction. OTHER: No other significant finding. IMPRESSION: There is focal uptake in the mandible likely secondary to dental disease. The overall a ppearance of the scan does not suggest metastatic disease to bone. COMMENT: Quality measure 147: Current bone scan is compared with any available plain radiographs, p rior bone scans, and CT/MRI. TECHNICAL DOCUMENTATION: JOB ID: [id number] [employer]- All Rights Reserved Reading location - IP/workstation name: [email or web address]
== END ==
LOC: RAD 09:02
PROVIDERS: ATTEND Internal Medicine Medical Oncology
DX: C18.9 Malignant neoplasm of colon, unspecified (principal)
CPT/HCPCS: 78306; 71260; 74177; A9561; Q9969

== ENCOUNTER → 2020-02-06 | Outpatient (CLI) | payer MEDICAID ==
--- NOTE | 2020-02-06 09:57 | RADIOLOGY REPORT (SQ) ---
EXAM DESCRIPTION: CT CHEST WITH COMPLETED DATE/TIME: 02/06/2020 8:33 am REASON FOR STUDY: MALIGNANT NEOPLASM OF COLON, UNSPECIFIED C18.9 MALIGNANT NEOPLASM OF COLON, UNSPE CIFIED COMPARISON: 10/05/2019 TECHNIQUE: CT scan of the chest performed using helical scanning technique with dynamic intravenous contrast injection. Images reviewed with lung, soft tissue and bone windows. Reconstructed coronal and sagittal MPR and MIP images reviewed. All images stored on PACS. All CT scanners at this facility use dose modulation, iterative reconstruction, and/or weight based d osing when appropriate to reduce radiation dose to as low as reasonably achievable (ALARA). [facility]: Dose Right [facility]: CareDose [facility]: Dose Right [facility]: Teradose 4D [facility]: [employer] CONTRAST TYPE AND DOSE: See separate report of the same date. RENAL FUNCTION: See separate report. RADIATION DOSE: CT Rad equipment meets quality standard of care and radiation dose reduction techniq ues were employed. CTDIvol: 8.1 - 8.3 mGy. DLP: 1295 mGy-cm. . LIMITATIONS: None. FINDINGS: LUNGS AND PLEURA: Marked improvement with near complete resolution of multiple pulmonary n odules. There are a few remaining nodules, the largest 4 mm in the right lower lobe 1 image 93 serie s 6. HILAR AND MEDIASTINAL STRUCTURES: No identified masses or abnormal nodes. HEART AND VASCULAR STRUCTURES: No aneurysm or dissection. No central pulmonary emboli. No pericardi al effusion. HARDWARE: None in the chest. UPPER ABDOMEN: See separate report of the CT of the abdomen. THYROID AND OTHER SOFT TISSUES: No masses. No adenopathy. BONES: No significant finding. OTHER: No other significant finding. IMPRESSION: Favorable response to therapy with near complete resolution of pulmonary nodules. TECHNICAL DOCUMENTATION: JOB ID: [id number] Quality ID # [id number]: Final reports with documentation of one or more dose reduction techniques (e.g., Au tomated exposure control, adjustment of the mA and/or kV according to patient size, use of iterative reconstruction technique) 2010 [employer]- All Rights Reserved Reading location - IP/workstation name: [email or web address]
--- NOTE | 2020-02-06 10:21 | RADIOLOGY REPORT (SQ) ---
EXAM DESCRIPTION: CT ABD/PELVIS WITH IV ORAL COMPLETED DATE/TIME: 02/06/2020 8:33 am REASON FOR STUDY: MALIGNANT NEOPLASM OF COLON, UNSPECIFIED C18.9 MALIGNANT NEOPLASM OF COLON, UNSPE CIFIED COMPARISON: 10/05/2019 TECHNIQUE: CT scan of the abdomen and pelvis performed with intravenous and oral contrast using brock jeffrey scanning technique with dynamic intravenous contrast injection. Images reviewed with lung, soft t issue, and bone windows. Reconstructed coronal and sagittal MPR images reviewed. Delayed images for e valuation of the urinary system also acquired. All images stored on PACS. All CT scanners at this facility use dose modulation, iterative reconstruction, and/or weight based d osing when appropriate to reduce radiation dose to as low as reasonably achievable (ALARA). [facility]: Dose Right [facility]: CareDose [facility]: Dose Right [facility]: Teradose 4D [facility]: [employer] CONTRAST TYPE AND DOSE: contrast/concentration: Isovue 350.00 mg/ml; Total Contrast Delivered: 95.0 ml; Total Saline Delivered: 71.0 ml RENAL FUNCTION: GFR > 60. RADIATION DOSE: . LIMITATIONS: None. FINDINGS: LOWER CHEST: See separate report of the CT of the chest. LIVER: Normal size. No masses. No dilated ducts. SPLEEN: Normal size. No focal lesions. PANCREAS: No masses. No significant calcifications. No adjacent inflammation or peripancreatic fluid collections. Pancreatic duct not dilated. GALLBLADDER: No identified stones by CT criteria. No inflammatory changes to suggest cholecystitis. ADRENAL GLANDS: No significant masses or asymmetry. RIGHT KIDNEY AND URETER: No solid masses. No significant calcifications. No hydronephrosis or hyd roureter. LEFT KIDNEY AND URETER: No solid masses. No significant calcifications. No hydronephrosis or hydr oureter. AORTA AND VESSELS: No aneurysm. No dissection. Renal arteries, SMA, celiac without stenosis. RETROPERITONEUM: No retroperitoneal adenopathy, hemorrhage or masses. BOWEL AND PERITONEAL CAVITY: Peritoneal implants have largely resolved. Some minimal nodularity in t he anterior mesentery on image 48. APPENDIX: Not visualized. PELVIS: No significant masses. Normal bladder. No free fluid. ABDOMINAL WALL: No masses. No hernias. BONES: No significant or acute findings. OTHER: No other significant finding. IMPRESSION: Favorable response to therapy with resolution of solitary liver lesion, mesenteric and r etroperitoneal adenopathy. TECHNICAL DOCUMENTATION: JOB ID: [id number] Quality ID # [id number]: Final reports with documentation of one or more dose reduction techniques (e.g., Au tomated exposure control, adjustment of the mA and/or kV according to patient size, use of iterative reconstruction technique) 2010 [employer]- All Rights Reserved Reading location - IP/workstation name: [email or web address]
== END ==
LOC: RAD 08:10
PROVIDERS: ATTEND Internal Medicine Medical Oncology
DX: C18.9 Malignant neoplasm of colon, unspecified (principal)
CPT/HCPCS: 71260; 74177

== ENCOUNTER → 2020-06-27 | Outpatient (CLI) | payer MEDICAID ==
--- NOTE | 2020-06-27 13:32 | RADIOLOGY REPORT (SQ) ---
EXAM DESCRIPTION: CT CHEST WITH IMAGES COMPLETED DATE/TIME: 06/27/2020 10:48 am REASON FOR STUDY: C18.9 MALIGNANT NEOPLASM OF COLON, UNSPECIFIED C18.9 MALIGNANT NEOPLASM OF COLON, UNSPECIFIED COMPARISON: 02/06/2020 TECHNIQUE: CT scan of the chest performed using helical scanning technique with dynamic intravenous contrast injection. Images reviewed with lung, soft tissue and bone windows. Reconstructed coronal and sagittal MPR and MIP images reviewed. All images stored on PACS. All CT scanners at this facility use dose modulation, iterative reconstruction, and/or weight based d osing when appropriate to reduce radiation dose to as low as reasonably achievable (ALARA). [facility]: Dose Right [facility]: CareDose [facility]: Dose Right [facility]: Teradose 4D [facility]: [employer] RENAL FUNCTION: GFR > 60. RADIATION DOSE: . LIMITATIONS: None. FINDINGS: LUNGS AND PLEURA: There has been interval increase in size of nodule in the right lower lo be from 4 mm to 12 mm. There are several new nodules, the largest in the middle lobe measuring 10 mm on image 35. Trace left pleural effusion. HILAR AND MEDIASTINAL STRUCTURES: No identified masses or abnormal nodes. HEART AND VASCULAR STRUCTURES: No aneurysm or dissection. No central pulmonary emboli. No pericardi al effusion. HARDWARE: None in the chest. UPPER ABDOMEN: See separate report of the CT of the abdomen. THYROID AND OTHER SOFT TISSUES: No masses. No adenopathy. BONES: No significant finding. OTHER: Left-sided port tip in the SVC. IMPRESSION: Increasing pulmonary nodules. TECHNICAL DOCUMENTATION: JOB ID: [id number] Quality ID # [id number]: Final reports with documentation of one or more dose reduction techniques (e.g., Au tomated exposure control, adjustment of the mA and/or kV according to patient size, use of iterative reconstruction technique) 2010 [employer]- All Rights Reserved Reading location - IP/workstation name: [email or web address]
--- NOTE | 2020-06-27 13:45 | RADIOLOGY REPORT (SQ) ---
EXAM DESCRIPTION: CT ABD/PELVIS WITH IV ORAL IMAGES COMPLETED DATE/TIME: 06/27/2020 10:48 am REASON FOR STUDY: C18.9 MALIGNANT NEOPLASM OF COLON, UNSPECIFIED C18.9 MALIGNANT NEOPLASM OF COLON, UNSPECIFIED COMPARISON: 02/06/2020 TECHNIQUE: CT scan of the abdomen and pelvis performed using helical scanning technique with dynamic intravenous contrast injection. No oral contrast. Images reviewed with lung, soft tissue, and bone windows. Reconstructed coronal and sagittal MPR images reviewed. Delayed images for evaluation of the urinary system also acquired. All images stored on PACS. All CT scanners at this facility use dose modulation, iterative reconstruction, and/or weight based d osing when appropriate to reduce radiation dose to as low as reasonably achievable (ALARA). [facility]: Dose Right [facility]: CareDose [facility]: Dose Right [facility]: Teradose 4D [facility]: [employer] CONTRAST TYPE AND DOSE: contrast/concentration: Isovue 350.00 mmol/ml; Total Contrast Delivered: 99. 0 ml; Total Saline Delivered: 59.5 ml RENAL FUNCTION: GFR > 60. RADIATION DOSE: CT Rad equipment meets quality standard of care and radiation dose reduction techniq ues were employed. CTDIvol: 9.8 - 14.0 mGy. DLP: 1483 mGy-cm.. LIMITATIONS: None. FINDINGS: LOWER CHEST: See separate report of the CT of the chest. LIVER: Fatty change with focal sparing. SPLEEN: Normal size. No focal lesions. PANCREAS: No masses. No significant calcifications. No adjacent inflammation or peripancreatic fluid collections. Pancreatic duct not dilated. GALLBLADDER: No identified stones by CT criteria. No inflammatory changes to suggest cholecystitis. ADRENAL GLANDS: No significant masses or asymmetry. RIGHT KIDNEY AND URETER: No solid masses. No significant calcifications. No hydronephrosis or hyd roureter. LEFT KIDNEY AND URETER: No solid masses. No significant calcifications. No hydronephrosis or hydr oureter. AORTA AND VESSELS: No aneurysm. RETROPERITONEUM: No retroperitoneal adenopathy, hemorrhage or masses. BOWEL AND PERITONEAL CAVITY: Hyperemia and thickening of the omentum in the midline image 85. No cheryl nopathy or ascites. Wall thickening in the sigmoid colon image 108. APPENDIX: Not visualized. PELVIS: No mass. No free fluid. Normal bladder. ABDOMINAL WALL: No masses. No hernias. BONES: No significant or acute findings. OTHER: No other significant finding. IMPRESSION: 1. Inflammatory changes in the omentum worrisome for metastatic disease. No ascites. 2. Wall thickening in the sigmoid colon cannot exclude primary disease. TECHNICAL DOCUMENTATION: JOB ID: [id number] Quality ID # [id number]: Final reports with documentation of one or more dose reduction techniques (e.g., Au tomated exposure control, adjustment of the mA and/or kV according to patient size, use of iterative reconstruction technique) 2010 [employer]- All Rights Reserved Reading location - IP/workstation name: [email or web address]
== END ==
LOC: RAD 10:17
PROVIDERS: ATTEND Internal Medicine Medical Oncology
DX: C18.9 Malignant neoplasm of colon, unspecified (principal); R91.8 Other nonspecific abnormal finding of lung field
CPT/HCPCS: 71260; 74177; 82565

== ENCOUNTER 2020-09-24 11:29 | Emergency (ER) | payer MEDICAID ==
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
[2020-09-24] MEDS ORDERED: METOCLOPRAMIDE HCL INJ/PF 10 MG/2 ML SDV IV ONE ×2 (12:19→16:30)
[2020-09-24] MEDS ORDERED: MORPHINE SULFATE 10 MG/ML INJ IV ONE ×3 (12:19→22:25)
[2020-09-24 13:03] LABS: APPEARANCE,URINE SLIGHTLY-CLOUDY; BILIRUBIN,URINE MODERATE (NEGATIVE); CALCIUM OXALATE CRYSTALS,URINE RARE /HPF; COLOR,URINE AMBER; GLUCOSE, URINE NEGATIVE (NEGATIVE); KETONES,URINE NEGATIVE (NEGATIVE); LEUKOCYTE ESTERASE,URINE NEGATIVE (NEGATIVE); NITRITE,URINE NEGATIVE (NEGATIVE); PROTEIN,URINE 30 mg/dL (NEGATIVE); URINE SPECIFIC GRAVITY 1.027
[2020-09-24 13:09] LABS: ABSOLUTE BASOPHILS # (AUTO) 0.1 10^3/uL (0.0-0.2); ABSOLUTE EOSINOPHILS # (AUTO) 0.3 10^3/uL (0.0-0.6); ABSOLUTE LYMPHOCYTES (AUTO) 1.6 10^3/uL (0.5-4.7); ABSOLUTE NEUT (AUTO) 8.5 10^3/uL (1.7-8.2); BASOPHILS % (AUTO) 0.4 % (0-2); EOSINOPHILS % (AUTO) 2.3 % (0-6); HEMOGLOBIN 13.9 g/dL (13.5-17.0); LYMPHOCYTES % (AUTO) 14.3 % (13-45); MEAN CORPUSCULAR HEMOGLOBIN 35.5 pg (27.0-33.4); MEAN CORPUSCULAR HGB CONC 35.7 g/dL (32.0-36.0); MEAN CORPUSCULAR VOLUME 99 fl (80-97); MONOCYTES % (AUTO) 8.8 % (3-13); RED BLOOD COUNT 3.92 10^6/uL (4.35-5.55); RED CELL DISTRIBUTION WIDTH 15.1 % (11.5-14.0); SEGMENTED NEUTROPHILS % (AUTO) 74.2 % (42-78); TOTAL CELLS COUNTED % (AUTO) 100 %; WHITE BLOOD COUNT 11.5 10^3/uL (4.0-10.5)
[2020-09-24 13:23] LABS: ALBUMIN 3.7 g/dL (3.5-5.0); ALKALINE PHOSPHATASE 389 U/L (38-126); AMYLASE 46 U/L (30-110); ANION GAP 12 (5-19); ASPARTATE AMINO TRANSFERASE 97 U/L (17-59); BILIRUBIN,DIRECT 16.6 mg/dL (0.0-0.4); BILIRUBIN,TOTAL 18.7 mg/dL (0.2-1.3); BLOOD UREA NITROGEN 10 mg/dL (7-20); CALCIUM 9.8 mg/dL (8.4-10.2); CARBON DIOXIDE 23 mmol/L (22-30); CHLORIDE 98 mmol/L (98-107); GLUCOSE 171 mg/dL (75-110); POTASSIUM 3.9 mmol/L (3.6-5.0); TOTAL PROTEIN 7.5 g/dL (6.3-8.2)
[2020-09-24 13:33] LABS: PLATELET COUNT 381 10^3/uL (150-450)
--- NOTE | 2020-09-24 13:50 | RADIOLOGY REPORT (SQ) ---
EXAM DESCRIPTION: U/S ABDOMEN LTD W/DOPPLER IMAGES COMPLETED DATE/TIME: 09/24/2020 1:29 pm REASON FOR STUDY: abdominal pain/jaundice COMPARISON: 11/09/2018 TECHNIQUE: Dynamic and static grayscale images acquired of the abdomen and recorded on PACS. Nghiao prince selected color Doppler and spectral images recorded. LIMITATIONS: None. FINDINGS: PANCREAS: Not seen. LIVER: Increased echogenicity with multiple hypoechoic lesions. The largest measures 27 mm in larges t diameter. LIVER VASCULATURE: Normal directional flow of the main portal vein and hepatic veins. GALLBLADDER: Contracted gallbladder. Questionable wall thickening versus mere nondistention. No sto chuck. ULTRASOUND-DETECTED BELTRAN'S SIGN: Negative. INTRAHEPATIC DUCTS AND COMMON DUCT: Common bile duct is borderline at 7 mm. AORTA: Proximal aorta is normal. Mid and distal aorta were obscured by gas. RIGHT KIDNEY: Normal size, 12.1 cm. Normal echogenicity. No solid or suspicious masses. No hydroneph rosis. There is an area of cortical calcification. Cannot exclude a minimal subcapsular fluid colle ction. PERITONEAL AND RIGHT PLEURAL SPACE: No ascites or effusions. OTHER: No other significant findings. IMPRESSION: 1. Hepatic steatosis with multiple hypoechoic lesions concerning for metastases. 2. Contracted gallbladder with questionable wall thickening versus nondistention. No gallstones. N egative sonographic Beltran sign. 3. Cortical calcification in the right kidney of uncertain significance. There appears to be a mini mal subcapsular fluid collection. TECHNICAL DOCUMENTATION: JOB ID: [id number] 2010 [employer]- All Rights Reserved Reading location - IP/workstation name: [email or web address]
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
--- NOTE | 2020-09-24 19:06 | RADIOLOGY REPORT (SQ) ---
EXAM DESCRIPTION: CT ABD/PELVIS WITH IV ONLY IMAGES COMPLETED DATE/TIME: 09/24/2020 6:47 pm REASON FOR STUDY: suspect metastatic colon cancer COMPARISON: 06/27/2020 TECHNIQUE: CT scan of the abdomen and pelvis performed using helical scanning technique with dynamic intravenous contrast injection. No oral contrast. Images reviewed with lung, soft tissue, and bone windows. Reconstructed coronal and sagittal MPR images reviewed. Delayed images for evaluation of the urinary system also acquired. All images stored on PACS. All CT scanners at this facility use dose modulation, iterative reconstruction, and/or weight based d osing when appropriate to reduce radiation dose to as low as reasonably achievable (ALARA). [facility]: Dose Right [facility]: CareDose [facility]: Dose Right [facility]: Teradose 4D [facility]: [employer] CONTRAST TYPE AND DOSE: contrast/concentration: Isovue 350.00 mmol/ml; Total Contrast Delivered: 70. 0 ml; Total Saline Delivered: 63.0 ml RENAL FUNCTION: BUN 10 creatinine 0.72 RADIATION DOSE: CT Rad equipment meets quality standard of care and radiation dose reduction techniq ues were employed. CTDIvol: 10.6 - 14.7 mGy. DLP: 1509 mGy-cm.. LIMITATIONS: None. FINDINGS: LOWER CHEST: There is some ground-glass infiltrate. There is a cluster of small nodules i n the right lower lobe posterolaterally. There is large left pleural effusion with associated airspa ce disease in the left lower lobe. LIVER: The liver is heterogeneous with definable lesions that are slightly hypodense on the precontra st study and relatively isodense on the postcontrast study. SPLEEN: Normal size. No focal lesions. PANCREAS: No masses. No significant calcifications. No adjacent inflammation or peripancreatic fluid collections. Pancreatic duct not dilated. GALLBLADDER: Contracted gallbladder. No stones. ADRENAL GLANDS: No significant masses or asymmetry. RIGHT KIDNEY AND URETER: No solid masses. No significant calcifications. No hydronephrosis or hyd roureter. LEFT KIDNEY AND URETER: No solid masses. No significant calcifications. No hydronephrosis or hydr oureter. AORTA AND VESSELS: No aneurysm. No dissection. Renal arteries, SMA, celiac without stenosis. RETROPERITONEUM: No retroperitoneal adenopathy, hemorrhage or masses. BOWEL AND PERITONEAL CAVITY: No obvious bowel mass. There is patchy ill-defined mesenteric opacifica tion. There is small amount of free fluid around the liver and spleen and in the pelvis. APPENDIX: Not identified. PELVIS: There is some free fluid. Urinary bladder is normal. ABDOMINAL WALL: Prominent bilateral inguinal hernias containing fluid. BONES: No significant or acute findings. OTHER: No other significant finding. IMPRESSION: 1. There are some small nodules in the right lower lobe suggestive of metastatic diseas e to the lungs. There is a large left pleural effusion with associated atelectasis in the left lower lobe. There is limited ground-glass infiltrate that may suggest chronic interstitial disease or int erstitial edema or an atypical infectious/ inflammatory process. 2. There appear to be several definable lesions in the liver concerning for metastatic disease. 3. There is ill-defined mesenteric opacification that could suggest mesenteric metastatic implants. 4. There is some free fluid in the abdomen or pelvis. 5. Bilateral inguinal hernias containing fluid. TECHNICAL DOCUMENTATION: JOB ID: [id number] Quality ID # [id number]: Final reports with documentation of one or more dose reduction techniques (e.g., Au tomated exposure control, adjustment of the mA and/or kV according to patient size, use of iterative reconstruction technique) 2010 [employer]- All Rights Reserved Reading location - IP/workstation name: [email or web address]
[2020-09-24] MEDS: NORMAL SALINE 1000 ML 1,000 ML IV PRN ×2 (19:23→20:24)
[2020-09-24 19:33] LABS: INTERNATIONAL RATION (INR) 1.32; PROTHROMBIN TIME 16.6 SEC (11.4-15.4)
[2020-09-24 19:34] LABS: PARTIAL THROMBOPLASTIN TIME 36.7 SEC (23.5-35.8)
--- NOTE | 2020-09-24 21:49 | RADIOLOGY REPORT (SQ) ---
EXAM DESCRIPTION: MR ABDOMEN WITHOUT IV CONTRAST COMPLETED DATE/TME: 09/24/2020 20:40 CLINICAL HISTORY: 59 years, Male, elevated tbili, CBD 7mm on US, eval CBD stone COMPARISON: CT from earlier today TECHNIQUE: Noncontrast multiplanar multiecho MR imaging of the abdomen with MRCP reconstructions was performed. Images stored on PACS. LIMITATIONS: Motion artifact. FINDINGS: Gallbladder is contracted and there is pericholecystic fluid as before. No definite gallstone is seen. There is no extrahepatic biliary ductal dilation identified. The common bile duct is normal in caliber at 3 mm. There is, however, intrahepatic biliary duct dilation above the common hepatic duct and there is central ductal irregularity, more so extending into the left hepatic duct. There are several somewhat subtle T2 hyperintense lesions throughout the liver measuring up to 2.2 cm. There is partial visualization of free fluid within the abdomen and peritoneal and mesenteric nodularity as noted on CT. Left pleural effusion with nodular pleural thickening and right lower lobe pulmonary nodularity are also again demonstrated. There is no definite renal, adrenal, or splenic lesion. No obvious pancreatic mass is seen. Visualized bone marrow signal is maintained. No definite regional adenopathy is seen. IMPRESSION: 1. Intrahepatic biliary ductal dilation with a pattern concerning for neoplasm such is cholangiocarcinoma or obstructing metastatic lesion. Cholangitis would also be a consideration although felt to be less likely. 2. Multiple hepatic lesions are again demonstrated although detail evaluation is limited by motion artifact. These are concerning for metastatic disease. Additional omental/mesenteric nodularity, left pleural effusion with pleural nodularity, and right lower lobe or nodularity are also again identified, concerning for metastatic disease. 3. Contracted gallbladder and pericholecystic fluid. copyright 2010 [employer]- All Rights Reserved
[2020-09-24 22:40] VITALS: BP 137/77
--- OUTSIDE RECORDS SUMMARY | 2020-09-26 17:44 | XMS REPORT ---
:1960 Author Organization [facility] Address [facility] [address] [place] [address] Care Team Providers Name Role Phone [facility] Primary Care Physician Unavailable Mounika Dueñas Attending Clinician Unavailable MD Jerrell Paez Attending Clinician Unavailable MD Jerrell Paez Attending Clinician Unavailable Last Dueñas Attending Clinician Unavailable Colin Attending Clinician Unavailable Allergies, Adverse Reactions, Alerts Allergy Name Allergy Status Severity Reaction(s) Onset Inactive Treat ing Comments Type Date Date Clinician Shellfish Miscellaneo Active us allergy 03-05 00:00: 00 Acetaminophe Allergy to Active n Drug (Ingredient( (Finding) s): acetaminophe n) Iodine Allergy to Active (Ingredient( Drug s): (Finding) Laminaria hyperborea extract) Shellfish [id number] Active Medications Ordered Filled Start Stop Current Ordering Indication Dosage Frequency Signature Comments Components Medication Medication Date Date Medication? Clinician (SIG) Name Name Palonosetro 2019-0 No .25mg Palonosetr n HCl 5-29 on HCl 00:00: 00 Dexamethaso 2019-0 No 10mg Dexamethas ne Sodium 5-29 one Sodium Phosphate 00:00: Phosphate 00 Dextrose 2019-0 No 70mL Dextrose 5-29 00:00: 00 Oxaliplatin 2019-0 No 167mg Oxaliplati 5-29 n 00:00: 00 Fluorouraci 2019-0 No 788mg Fluorourac l 5-29 il 00:00: 00 Palonosetro 2019-0 No .25mg Palonosetr n HCl 4-24 on HCl 00:00: 00 Dexamethaso 2019-0 No 10mg Dexamethas ne Sodium 4-24 one Sodium Phosphate 00:00: Phosphate 00 Dextrose 2019-0 No 70mL Dextrose 4-24 00:00: 00 Oxaliplatin 2019-0 No 167mg Oxaliplati 4-24 n 00:00: 00 Fluorouraci 0 No 788mg Fluorourac l 4-24 il 00:00: 00 Dextrose 2019-0 No 80mL Dextrose 4-10 00:00: 00 Oxaliplatin 2019-0 Yes 167mg Oxaliplati 4-10 n 00:00: 00 Fluorouraci 2019-0 Yes 788mg Fluorourac l 4-10 il 00:00: 00 5-FU PUMP 2019-0 Yes 4728mg 4-10 00:00: 00 Dextrose 2019-0 Yes 70mL 4-10 00:00: 00 Dexamethaso 2019-0 2019- No 10mg Dexamethas ne Sodium 02-22 one Sodium Phosphate 00:00: 00:00 Phosphate 00 :00 Palonosetro 2019-0 2019- No .25mg Palonosetr n HCl 02-22 on HCl 00:00: 00:00 00 :00 PROVIDED 2019-0 2019- No 788mg Leucovorin 02-22 00:00: 00:00 00 :00 Atenolol 2019-0 Yes 1 3-05 00:00: 00 alexia's 2019-0 Yes magic 2-25 mouthwash 00:00: 00 Heparin 2019-0 2019- No 5mL Lock Flush 208 -09 00:00: 00:00 00 :00 Normal 2019-0 2019- No 10mL Saline 2-08 -09 Flush 00:00: 00:00 00 :00 Leucovorin 2019-0 Yes 776mg Calcium 2-06 00:00: 00 Promethazin 2019-0 2019- No 1 e HCl 2-02 16- 00:00: 09:41 00 :06 Zofran 2019-0 2019- No 1 2-04 04- 00:00: 09:41 00 :06 Ativan 2019-0 Yes 1 2-01 00:00: 00 TraMADol 2019-0 2019- No 1 HCl 12-07- 00:00: 09:41 00 :06 Atenolol Yes 1 Problems Condition Condition Condition Status Onset Resolution Last Treatin g Comments Name Details Category Date Date Treatment Clinician Date Patient Patient Diagnosis active encounter encounter 1-18 status status 00:00: 00 Malignant Malignant Diagnosis active 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 00 Not on file Not on file [id number] Procedures Procedure Date / Time Performed Performing Clinician Dominique e banding hemorrhoids 2019-01-13 00:00:00 OFFICE OUTPATIENT VISIT 15 MINUTES 2017-09-14 15:59:00 OFFICE OUTPATIENT VISIT 15 MINUTES 2016-03-05 14:40:00 OFFICE OUTPATIENT VISIT 15 MINUTES 2015-12-04 14:18:00 Orthopedic surgery Results Test Description Test Time Test Comments Text Results Atomic Results Result Comments Magnesium 2019-04-12 08:15:00 Test Item Value Reference Range Comments Magnesium (test code = Magnesium) 1.8000 mg/dL 1.6000-2.3000 [id number] 08:14:00 Test Item Value Reference Range Comments Calcium (test code = Calcium) 9.3400 mg/dL 8.0000-10.3000 Albumin (test code = Albumin) 4.1000 g/dL 3.5000-5.5000 Protein, Total (test code = Protein, 7.0000 g/dL 6.4000-8.10 00 Total) Bilirubin, Total (test code = Bilirubin, 0.4000 mg/dL 0.0000- 1.6000 Total) BUN (test code = BUN) 9.0000 mg/dL 7.0000-22.0000 Glucose (test code = Glucose) 161.0000 mg/dL 70.0000-118.0000 Creatinine (test code = Creatinine) 0.8000 mg/dL 0.5000-1.200 0 ALT (SGPT) (test code = ALT (SGPT)) 63.0000 10.0000-47.0 000 AST (SGOT) (test code = AST (SGOT)) 36.0000 11.0000-37.0 000 Alkaline Phosphatase (test code = Alkaline 120.0000 42.00 00-141.0000 Phosphatase) Sodium (test code = Sodium) 136.0000 mmol/L 128.0000-145.0000 Potassium (test code = Potassium) 3.6000 mmol/L 3.6000-5.1000 CO2 (test code = CO2) 22.0000 mmol/L 18.0000-33.0000 Cr Clearance (Est) (test code = Cr 123.4000 85.0000-125.0 000 Clearance (Est)) Chloride (test code = Chloride) 103.0000 mmol/L 96.0000-108.0000 eGFR -Ugandan (test code = eGFR 121.0000 60.0000- 200.0000 -Ugandan) eGFR Ttq-Jmiozaj-Wcectkfd (test code = 100.0000 60.0000-2 00.0000 eGFR Lvh-Eguamfg-Euzhotor) [id number] 08:14:00 Test Item Value Reference Range Comments HGB (test code = HGB) 14.2000 g/dL 11.2000-18.0000 MCV (test code = MCV) 104.4000 fL 80.0000-94.0000 MCHC (test code = MCHC) 33.6000 g/dL 31.5000-36.0000 MPV (test code = MPV) 7.9000 fL 6.8000-10.6000 WBC (test code = WBC) 9.3000 4.0000-10.0000 Neutrophils (test code = Neutrophils) 6.3000 1.5000-6.7 000 PLT (test code = PLT) 276.0000 140.0000-440.0000 MID (test code = MID) 0.8000 0.1000-1.1000 MID% (test code = MID%) 7.7000 % .1999- RDW (test code = RDW) 15.9000 11.0000-18.0000 Neutrophils % (test code = Neutrophils %) 68.0000 % 48.900 0-69.9000 HCT (test code = HCT) 42.4000 % 34.0000-44.0000 Lymphocytes % (test code = Lymphocytes %) 24.3000 % 22.400 0-43.6000 MCH (test code = MCH) 35.1000 pg 27.0000-34.0000 RBC (test code = RBC) 4.0500 3.7000-4.9000 Lymphocytes (test code = Lymphocytes) 2.1999 1.1999-3.2 000 [id number] 08:14:00 Test Item Value Reference Range Comments WBC (test code = WBC) 9.3000 4.0000-10.0000 Lymphocytes % (test code = Lymphocytes %) 24.3000 % 22.400 0-43.6000 MID% (test code = MID%) 7.7000 % - Neutrophils % (test code = Neutrophils %) 68.0000 % 48.900 0-69.9000 Lymphocytes (test code = Lymphocytes) 2.1999 1.2000-3.2 000 MID (test code = MID) 0.8000 0.1000-1.1000 Neutrophils (test code = Neutrophils) 6.3000 1.5000-6.7 000 RBC (test code = RBC) 4.0500 3.7000-4.9000 HGB (test code = HGB) 14.2000 g/dL 11.2000-18.0000 HCT (test code = HCT) 42.4000 % 34.0000-44.0000 MCV (test code = MCV) 104.4000 fL 80.0000-94.0000 MCH (test code = MCH) 35.1000 pg 27.0000-34.0000 MCHC (test code = MCHC) 33.6000 g/dL 31.5000-36.0000 RDW (test code = RDW) 15.9000 11.0000-18.0000 PLT (test code = PLT) 276.0000 140.0000-440.0000 MPV (test code = MPV) 7.9000 fL 6.8000-10.6000 [id number] 08:14:00 Test Item Value Reference Range Comments Creatinine (test code = Creatinine) 0.8000 mg/dL 0.5000-1.200 0 Cr Clearance (Est) (test code = Cr 123.4000 85.0000-125.0 000 Clearance (Est)) Glucose (test code = Glucose) 161.0000 mg/dL 70.0000-118.0000 BUN (test code = BUN) 9.0000 mg/dL 7.0000-22.0000 Sodium (test code = Sodium) 136.0000 mmol/L 128.0000-145.0000 Potassium (test code = Potassium) 3.6000 mmol/L 3.6000-5.1000 Chloride (test code = Chloride) 103.0000 mmol/L 96.0000-108.0000 CO2 (test code = CO2) 22.0000 mmol/L 18.0000-33.0000 Calcium (test code = Calcium) 9.3400 mg/dL 8.0000-10.3000 Alkaline Phosphatase (test code = Alkaline 120.0000 42.00 00-141.0000 Phosphatase) ALT (SGPT) (test code = ALT (SGPT)) 63.0000 10.0000-47.0 000 AST (SGOT) (test code = AST (SGOT)) 36.0000 11.0000-37.0 000 Bilirubin, Total (test code = Bilirubin, 0.4000 mg/dL 0.0000- 1.6000 Total) Albumin (test code = Albumin) 4.1000 g/dL 3.5000-5.5000 Protein, Total (test code = Protein, 7.0000 g/dL 6.4000-8.10 00 Total) eGFR -Ugandan (test code = eGFR 121.0000 60.0000- 200.0000 -Ugandan) eGFR Rga-Sdsxshq-Tvvkvqsp (test code = 100.0000 60.0000-2 00.0000 eGFR Lsn-Tdepniw-Ilqgulss) eGFR Ysy-Xoopdgn-[id number] 08:42:00 Test Item Value Reference Range Comments eGFR Abn-Yqxrqjk-Mpflnjsn (test code = 87.0000 60.0000-2 00.0000 eGFR Rkv-Zigzjub-Qvfpshgb) eGFR -Ugandan (test code = eGFR 105.0000 60.0000- 200.0000 -Ugandan) Cr Clearance (Est) (test code = Cr 109.0000 85.0000-125.0 000 Clearance (Est)) Chloride (test code = Chloride) 102.0000 mmol/L 96.0000-108.0000 CO2 (test code = CO2) 25.0000 mmol/L 18.0000-33.0000 Potassium (test code = Potassium) 4.2000 mmol/L 3.6000-5.1000 Sodium (test code = Sodium) 138.0000 mmol/L 128.0000-145.0000 Alkaline Phosphatase (test code = Alkaline 134.0000 42.00 00-141.0000 Phosphatase) AST (SGOT) (test code = AST (SGOT)) 30.0000 11.0000-37.0 000 ALT (SGPT) (test code = ALT (SGPT)) 50.0000 10.0000-47.0 000 Creatinine (test code = Creatinine) 0.9000 mg/dL 0.5000-1.200 0 BUN (test code = BUN) 14.0000 mg/dL 7.0000-22.0000 Magnesium (test code = Magnesium) 2.0000 mg/dL 1.6000-2.3000 Bilirubin, Total (test code = Bilirubin, 0.3000 mg/dL 0.0000- 1.6000 Total) Protein, Total (test code = Protein, 6.8000 g/dL 6.4000-8.10 00 Total) Albumin (test code = Albumin) 4.0000 g/dL 3.5000-5.5000 Glucose (test code = Glucose) 123.0000 mg/dL 70.0000-118.0000 Calcium (test code = Calcium) 9.2900 mg/dL 8.0000-10.3000 [id number] 08:42:00 Test Item Value Reference Range Comments Creatinine (test code = Creatinine) 0.9000 mg/dL 0.5000-1.200 0 Cr Clearance (Est) (test code = Cr 109.0000 85.0000-125.0 000 Clearance (Est)) Glucose (test code = Glucose) 123.0000 mg/dL 70.0000-118.0000 BUN (test code = BUN) 14.0000 mg/dL 7.0000-22.0000 Sodium (test code = Sodium) 138.0000 mmol/L 128.0000-145.0000 Potassium (test code = Potassium) 4.2000 mmol/L 3.6000-5.1000 Chloride (test code = Chloride) 102.0000 mmol/L 96.0000-108.0000 CO2 (test code = CO2) 25.0000 mmol/L 18.0000-33.0000 Calcium (test code = Calcium) 9.2900 mg/dL 8.0000-10.3000 Alkaline Phosphatase (test code = Alkaline 134.0000 42.00 00-141.0000 Phosphatase) ALT (SGPT) (test code = ALT (SGPT)) 50.0000 10.0000-47.0 000 AST (SGOT) (test code = AST (SGOT)) 30.0000 11.0000-37.0 000 Bilirubin, Total (test code = Bilirubin, 0.3000 mg/dL 0.0000- 1.6000 Total) Albumin (test code = Albumin) 4.0000 g/dL 3.5000-5.5000 Protein, Total (test code = Protein, 6.8000 g/dL 6.4000-8.10 00 Total) eGFR -Ugandan (test code = eGFR 105.0000 60.0000- 200.0000 -Ugandan) eGFR Zdu-Hnzrtvx-Rccawjbr (test code = 87.0000 60.0000-2 00.0000 eGFR Duw-Kdvqcsk-Zvcpehdt) Magnesium (test code = Magnesium) 2.0000 mg/dL 1.6000-2.3000 [id number] 08:41:00 Test Item Value Reference Range Comments Lymphocytes (test code = Lymphocytes) 1.7000 1.2000-3.2 000 RBC (test code = RBC) 3.6700 3.7000-4.9000 HGB (test code = HGB) 12.7000 g/dL 11.2000-18.0000 MCHC (test code = MCHC) 35.0000 g/dL 31.5000-36.0000 MCV (test code = MCV) 99.0000 fL 80.0000-94.0000 MPV (test code = MPV) 7.2000 fL 6.8000-10.6000 PLT (test code = PLT) 172.0000 140.0000-440.0000 WBC (test code = WBC) 4.5000 4.0000-10.0000 MID (test code = MID) 0.5000 0.1000-1.1000 Neutrophils (test code = Neutrophils) 2.3000 1.5000-6.7 000 MID% (test code = MID%) 8.9000 % .1999-11 Lymphocytes % (test code = Lymphocytes %) 39.1000 % 22.400 0-43.6000 Neutrophils % (test code = Neutrophils %) 52.0000 % 48.900 0-69.9000 HCT (test code = HCT) 36.4000 % 34.0000-44.0000 RDW (test code = RDW) 17.1999 11.0000-18.0000 MCH (test code = MCH) 34.7000 pg 27.0000-34.0000 [id number] 08:41:00 Test Item Value Reference Range Comments WBC (test code = WBC) 4.5000 4.0000-10.0000 Lymphocytes % (test code = Lymphocytes %) 39.1000 % 22.400 0-43.6000 MID% (test code = MID%) 8.9000 % .1999- Neutrophils % (test code = Neutrophils %) 52.0000 % 48.900 0-69.9000 Lymphocytes (test code = Lymphocytes) 1.7000 1.2000-3.2 000 MID (test code = MID) 0.5000 0.1000-1.1000 Neutrophils (test code = Neutrophils) 2.3000 1.5000-6.7 000 RBC (test code = RBC) 3.6700 3.7000-4.9000 HGB (test code = HGB) 12.7000 g/dL 11.1999-18.0000 HCT (test code = HCT) 36.4000 % 34.0000-44.0000 MCV (test code = MCV) 99.0000 fL 80.0000-94.0000 MCH (test code = MCH) 34.7000 pg 27.0000-34.0000 MCHC (test code = MCHC) 35.0000 g/dL 31.5000-36.0000 RDW (test code = RDW) 17.2000 11.0000-18.0000 PLT (test code = PLT) 172.0000 140.0000-440.0000 MPV (test code = MPV) 7.2000 fL 6.8000-10.6000 [id number] 08:16:00 Test Item Value Reference Range Comments WBC (test code = WBC) 9.1000 4.0000-10.0000 Lymphocytes % (test code = Lymphocytes %) 22.9000 % 22.400 0-43.6000 MID% (test code = MID%) 7.3000 % 1.2000-11.2000 Neutrophils % (test code = Neutrophils %) 69.8000 % 48.900 0-69.9000 Lymphocytes (test code = Lymphocytes) 2.1000 1.2000-3.2 000 MID (test code = MID) 0.6000 0.1000-1.1000 Neutrophils (test code = Neutrophils) 6.4000 1.5000-6.7 000 RBC (test code = RBC) 4.0800 3.7000-4.9000 HGB (test code = HGB) 12.6000 g/dL 11.2000-18.0000 HCT (test code = HCT) 39.8000 % 34.0000-44.0000 MCV (test code = MCV) 97.5000 fL 80.0000-94.0000 MCH (test code = MCH) 30.8000 pg 27.0000-34.0000 MCHC (test code = MCHC) 31.6000 g/dL 31.5000-36.0000 RDW (test code = RDW) 17.1000 11.0000-18.0000 PLT (test code = PLT) 193.0000 140.0000-440.0000 MPV (test code = MPV) 7.1000 fL 6.8000-10.6000 [id number] 08:16:00 Test Item Value Reference Range Comments Creatinine (test code = Creatinine) 0.7000 mg/dL 0.5000-1.200 0 Cr Clearance (Est) (test code = Cr 140.2900 85.0000-125.0 000 Clearance (Est)) Glucose (test code = Glucose) 108.0000 mg/dL 70.0000-118.0000 BUN (test code = BUN) 8.0000 mg/dL 7.0000-22.0000 Sodium (test code = Sodium) 139.0000 mmol/L 128.0000-145.0000 Potassium (test code = Potassium) 4.0000 mmol/L 3.6000-5.1000 Chloride (test code = Chloride) 102.0000 mmol/L 96.0000-108.0000 CO2 (test code = CO2) 28.0000 mmol/L 18.0000-33.0000 Calcium (test code = Calcium) 9.6000 mg/dL 8.0000-10.3000 Alkaline Phosphatase (test code = Alkaline 146.0000 42.00 00-141.0000 Phosphatase) ALT (SGPT) (test code = ALT (SGPT)) 45.0000 10.0000-47.0 000 AST (SGOT) (test code = AST (SGOT)) 50.0000 11.0000-37.0 000 Bilirubin, Total (test code = Bilirubin, 0.7000 mg/dL 0.0000- 1.6000 Total) Albumin (test code = Albumin) 3.3000 g/dL 3.5000-5.5000 Protein, Total (test code = Protein, 7.4000 g/dL 6.4000-8.10 00 Total) eGFR -Ugandan (test code = eGFR 141.0000 60.0000- 200.0000 -Ugandan) eGFR Kdt-Echfnkn-Aaibcxja (test code = 116.0000 60.0000-2 00.0000 eGFR Ocg-Cekbwqg-Vkivucyh) Magnesium (test code = Magnesium) 1.7000 mg/dL 1.6000-2.3000 eGFR Uts-Xmrveie-[id number] 08:16:00 Test Item Value Reference Range Comments eGFR Stx-Rayfixp-Rhnvfque (test code = 116.0000 60.0000-2 00.0000 eGFR Bqu-Ffofcfm-Larfrxgu) Cr Clearance (Est) (test code = Cr 140.2900 85.0000-125.0 000 Clearance (Est)) eGFR -Ugandan (test code = eGFR 141.0000 60.0000- 200.0000 -Ugandan) Sodium (test code = Sodium) 139.0000 mmol/L 128.0000-145.0000 Potassium (test code = Potassium) 4.0000 mmol/L 3.6000-5.1000 CO2 (test code = CO2) 28.0000 mmol/L 18.0000-33.0000 Chloride (test code = Chloride) 102.0000 mmol/L 96.0000-108.0000 ALT (SGPT) (test code = ALT (SGPT)) 45.0000 10.0000-47.0 000 AST (SGOT) (test code = AST (SGOT)) 50.0000 11.0000-37.0 000 Alkaline Phosphatase (test code = Alkaline 146.0000 42.00 00-141.0000 Phosphatase) Glucose (test code = Glucose) 108.0000 mg/dL 70.0000-118.0000 Bilirubin, Total (test code = Bilirubin, 0.7000 mg/dL 0.0000- 1.6000 Total) Magnesium (test code = Magnesium) 1.7000 mg/dL 1.6000-2.3000 BUN (test code = BUN) 8.0000 mg/dL 7.0000-22.0000 Creatinine (test code = Creatinine) 0.7000 mg/dL 0.5000-1.200 0 Protein, Total (test code = Protein, 7.4000 g/dL 6.4000-8.10 00 Total) Albumin (test code = Albumin) 3.3000 g/dL 3.5000-5.5000 Calcium (test code = Calcium) 9.6000 mg/dL 8.0000-10.3000 [id number] 08:16:00 Test Item Value Reference Range Comments MCH (test code = MCH) 30.8000 pg 27.0000-34.0000 RDW (test code = RDW) 17.1000 11.0000-18.0000 HCT (test code = HCT) 39.8000 % 34.0000-44.0000 Neutrophils % (test code = Neutrophils %) 69.8000 % 48.900 0-69.9000 Lymphocytes % (test code = Lymphocytes %) 22.9000 % 22.400 0-43.6000 MID% (test code = MID%) 7.3000 % 1.2000-11.2000 Neutrophils (test code = Neutrophils) 6.4000 1.5000-6.7 000 MID (test code = MID) 0.6000 0.1000-1.1000 WBC (test code = WBC) 9.1000 4.0000-10.0000 PLT (test code = PLT) 193.0000 140.0000-440.0000 MPV (test code = MPV) 7.1000 fL 6.8000-10.6000 MCV (test code = MCV) 97.5000 fL 80.0000-94.0000 MCHC (test code = MCHC) 31.6000 g/dL 31.5000-36.0000 HGB (test code = HGB) 12.6000 g/dL 11.2000-18.0000 RBC (test code = RBC) 4.0800 3.7000-4.9000 Lymphocytes (test code = Lymphocytes) 2.1000 1.2000-3.2 000 Vitamin D (25-Hydroxy)[id number] 15:40:00 Test Item Value Reference Range Comments Vitamin D (25-Hydroxy) (test code = Vitamin D 24.9000 ng/mL 30 .0000-100.0000 (25-Hydroxy)) [id number] 09:04:00 Test Item Value Reference Range Comments HGB (test code = HGB) 13.1000 g/dL 11.2000-18.0000 MCHC (test code = MCHC) 32.0000 g/dL 31.5000-36.0000 MPV (test code = MPV) 7.0000 fL 6.8000-10.6000 MCV (test code = MCV) 98.2000 fL 80.0000-94.0000 MCH (test code = MCH) 31.4000 pg 27.0000-34.0000 PLT (test code = PLT) 287.0000 140.0000-440.0000 WBC (test code = WBC) 11.2000 4.0000-10.0000 MID (test code = MID) 0.9000 0.1000-1.1000 Neutrophils (test code = Neutrophils) 6.6000 1.5000-6.7 000 Lymphocytes (test code = Lymphocytes) 3.7000 1.2000-3.2 000 MID% (test code = MID%) 7.8000 % 1.2000-11.2000 Lymphocytes % (test code = Lymphocytes %) 33.3000 % 22.400 0-43.6000 Neutrophils % (test code = Neutrophils %) 58.9000 % 48.900 0-69.9000 HCT (test code = HCT) 41.1000 % 34.0000-44.0000 RDW (test code = RDW) 17.1000 11.0000-18.0000 RBC (test code = RBC) 4.1900 3.7000-4.9000 [id number] 09:04:00 Test Item Value Reference Range Comments Calcium (test code = Calcium) 9.2000 mg/dL 8.0000-10.3000 Albumin (test code = Albumin) 3.5000 g/dL 3.5000-5.5000 Protein, Total (test code = Protein, 8.1000 g/dL 6.4000-8.10 00 Total) BUN (test code = BUN) 7.0000 mg/dL 7.0000-22.0000 Magnesium (test code = Magnesium) 2.1000 mg/dL 1.6000-2.3000 Bilirubin, Total (test code = Bilirubin, 0.5000 mg/dL 0.0000- 1.6000 Total) Creatinine (test code = Creatinine) 0.8000 mg/dL 0.5000-1.200 0 Glucose (test code = Glucose) 180.0000 mg/dL 70.0000-118.0000 Alkaline Phosphatase (test code = Alkaline 150.0000 42.00 00-141.0000 Phosphatase) AST (SGOT) (test code = AST (SGOT)) 47.0000 11.0000-37.0 000 ALT (SGPT) (test code = ALT (SGPT)) 46.0000 10.0000-47.0 000 eGFR -Ugandan (test code = eGFR 121.0000 60.0000- 200.0000 -Ugandan) eGFR Jxo-Tmqzyhw-Feanicum (test code = 100.0000 60.0000-2 00.0000 eGFR Nch-Bekuvsa-Trbvvmig) Cr Clearance (Est) (test code = Cr 120.7900 85.0000-125.0 000 Clearance (Est)) Chloride (test code = Chloride) 106.0000 mmol/L 96.0000-108.0000 CO2 (test code = CO2) 28.0000 mmol/L 18.0000-33.0000 Potassium (test code = Potassium) 4.2000 mmol/L 3.6000-5.1000 Sodium (test code = Sodium) 142.0000 mmol/L 128.0000-145.0000 [id number] 09:04:00 Test Item Value Reference Range Comments WBC (test code = WBC) 11.1999 4.0000-10.0000 Lymphocytes % (test code = Lymphocytes %) 33.3000 % 22.400 0-43.6000 MID% (test code = MID%) 7.8000 % 1.2000-11.2000 Neutrophils % (test code = Neutrophils %) 58.9000 % 48.900 0-69.9000 Lymphocytes (test code = Lymphocytes) 3.7000 1.2000-3.2 000 MID (test code = MID) 0.9000 0.1000-1.1000 Neutrophils (test code = Neutrophils) 6.6000 1.5000-6.7 000 RBC (test code = RBC) 4.1900 3.7000-4.9000 HGB (test code = HGB) 13.1000 g/dL 11.2000-18.0000 HCT (test code = HCT) 41.1000 % 34.0000-44.0000 MCV (test code = MCV) 98.2000 fL 80.0000-94.0000 MCH (test code = MCH) 31.4000 pg 27.0000-34.0000 MCHC (test code = MCHC) 32.0000 g/dL 31.5000-36.0000 RDW (test code = RDW) 17.1000 11.0000-18.0000 PLT (test code = PLT) 287.0000 140.0000-440.0000 MPV (test code = MPV) 7.0000 fL 6.8000-10.6000 [id number] 09:04:00 Test Item Value Reference Range Comments Magnesium (test code = Magnesium) 2.1000 mg/dL 1.6000-2.3000 Creatinine (test code = Creatinine) 0.8000 mg/dL 0.5000-1.200 0 Cr Clearance (Est) (test code = Cr 120.7900 85.0000-125.0 000 Clearance (Est)) Glucose (test code = Glucose) 180.0000 mg/dL 70.0000-118.0000 BUN (test code = BUN) 7.0000 mg/dL 7.0000-22.0000 Sodium (test code = Sodium) 142.0000 mmol/L 128.0000-145.0000 Potassium (test code = Potassium) 4.2000 mmol/L 3.6000-5.1000 Chloride (test code = Chloride) 106.0000 mmol/L 96.0000-108.0000 CO2 (test code = CO2) 28.0000 mmol/L 18.0000-33.0000 Calcium (test code = Calcium) 9.2000 mg/dL 8.0000-10.3000 Alkaline Phosphatase (test code = Alkaline 150.0000 42.00 00-141.0000 Phosphatase) ALT (SGPT) (test code = ALT (SGPT)) 46.0000 10.0000-47.0 000 AST (SGOT) (test code = AST (SGOT)) 47.0000 11.0000-37.0 000 Bilirubin, Total (test code = Bilirubin, 0.5000 mg/dL 0.0000- 1.6000 Total) Albumin (test code = Albumin) 3.5000 g/dL 3.5000-5.5000 Protein, Total (test code = Protein, 8.1000 g/dL 6.4000-8.10 00 Total) eGFR -Ugandan (test code = eGFR 121.0000 60.0000- 200.0000 -Ugandan) eGFR Vus-Wsqzzik-Ozbluecb (test code = 100.0000 60.0000-2 00.0000 eGFR Dfe-Gejpkeh-Pcxrvukl) [id number] 11:04:00 Test Item Value Reference Range Comments RBC (test code = RBC) 4.0500 3.7000-4.9000 Lymphocytes (test code = Lymphocytes) 2.3000 1.2000-3.2 000 MCH (test code = MCH) 31.8000 pg 27.0000-34.0000 RDW (test code = RDW) 15.8000 11.0000-18.0000 HCT (test code = HCT) 38.7000 % 34.0000-44.0000 Neutrophils % (test code = Neutrophils %) 40.6000 % 48.900 0-69.9000 Lymphocytes % (test code = Lymphocytes %) 53.7000 % 22.400 0-43.6000 MID% (test code = MID%) 5.7000 % 1.2000-11.2000 Neutrophils (test code = Neutrophils) 1.7000 1.5000-6.7 000 MID (test code = MID) 0.3000 0.1000-1.1000 WBC (test code = WBC) 4.3000 4.0000-10.0000 PLT (test code = PLT) 191.0000 140.0000-440.0000 MPV (test code = MPV) 7.7000 fL 6.8000-10.6000 MCV (test code = MCV) 95.4000 fL 80.0000-94.0000 MCHC (test code = MCHC) 33.3000 g/dL 31.5000-36.0000 HGB (test code = HGB) 12.9000 g/dL 11.2000-18.0000 [id number] 11:04:00 Test Item Value Reference Range Comments WBC (test code = WBC) 4.3000 4.0000-10.0000 Lymphocytes % (test code = Lymphocytes %) 53.7000 % 22.400 0-43.6000 MID% (test code = MID%) 5.7000 % 1.2000-11.2000 Neutrophils % (test code = Neutrophils %) 40.6000 % 48.900 0-69.9000 Lymphocytes (test code = Lymphocytes) 2.3000 1.2000-3.2 000 MID (test code = MID) 0.3000 0.1000-1.1000 Neutrophils (test code = Neutrophils) 1.7000 1.5000-6.7 000 RBC (test code = RBC) 4.0500 3.7000-4.9000 HGB (test code = HGB) 12.9000 g/dL 11.2000-18.0000 HCT (test code = HCT) 38.7000 % 34.0000-44.0000 MCV (test code = MCV) 95.4000 fL 80.0000-94.0000 MCH (test code = MCH) 31.8000 pg 27.0000-34.0000 MCHC (test code = MCHC) 33.3000 g/dL 31.5000-36.0000 RDW (test code = RDW) 15.8000 11.0000-18.0000 PLT (test code = PLT) 191.0000 140.0000-440.0000 MPV (test code = MPV) 7.7000 fL 6.8000-10.6000 [id number] 10:15:00 Test Item Value Reference Range Comments HGB (test code = HGB) 13.2000 g/dL 11.2000-18.0000 MCHC (test code = MCHC) 33.2000 g/dL 31.5000-36.0000 MPV (test code = MPV) 6.8000 fL 6.8000-10.6000 MCV (test code = MCV) 95.2000 fL 80.0000-94.0000 WBC (test code = WBC) 5.0000 4.0000-10.0000 PLT (test code = PLT) 190.0000 140.0000-440.0000 MID (test code = MID) 0.5000 0.1000-1.1000 Neutrophils (test code = Neutrophils) 2.6000 1.5000-6.7 000 MID% (test code = MID%) 8.9000 % 1.2000-11.2000 Neutrophils % (test code = Neutrophils %) 52.4000 % 48.900 0-69.9000 Lymphocytes % (test code = Lymphocytes %) 38.7000 % 22.400 0-43.6000 HCT (test code = HCT) 39.9000 % 34.0000-44.0000 RDW (test code = RDW) 15.1000 11.0000-18.0000 MCH (test code = MCH) 31.6000 pg 27.0000-34.0000 Lymphocytes (test code = Lymphocytes) 1.9000 1.2000-3.2 000 RBC (test code = RBC) 4.1900 3.7000-4.9000 [id number] 10:15:00 Test Item Value Reference Range Comments WBC (test code = WBC) 5.0000 4.0000-10.0000 Lymphocytes % (test code = Lymphocytes %) 38.7000 % 22.400 0-43.6000 MID% (test code = MID%) 8.9000 % 1.2000-11.2000 Neutrophils % (test code = Neutrophils %) 52.4000 % 48.900 0-69.9000 Lymphocytes (test code = Lymphocytes) 1.9000 1.2000-3.2 000 MID (test code = MID) 0.5000 0.1000-1.1000 Neutrophils (test code = Neutrophils) 2.6000 1.5000-6.7 000 RBC (test code = RBC) 4.1900 3.7000-4.9000 HGB (test code = HGB) 13.2000 g/dL 11.2000-18.0000 HCT (test code = HCT) 39.9000 % 34.0000-44.0000 MCV (test code = MCV) 95.2000 fL 80.0000-94.0000 MCH (test code = MCH) 31.6000 pg 27.0000-34.0000 MCHC (test code = MCHC) 33.2000 g/dL 31.5000-36.0000 RDW (test code = RDW) 15.1000 11.0000-18.0000 PLT (test code = PLT) 190.0000 140.0000-440.0000 MPV (test code = MPV) 6.8000 fL 6.8000-10.6000 eGFR Fcy-Wpifkee-[id number] 10:14:00 Test Item Value Reference Range Comments eGFR Cjc-Buadbzg-Tamfbfnh (test code = 87.0000 60.0000-2 00.0000 eGFR Gyo-Ikepjeg-Alqfecry) Cr Clearance (Est) (test code = Cr 105.5100 85.0000-125.0 000 Clearance (Est)) eGFR -Ugandan (test code = eGFR 105.0000 60.0000- 200.0000 -Ugandan) Sodium (test code = Sodium) 139.0000 mmol/L 128.0000-145.0000 CO2 (test code = CO2) 27.0000 mmol/L 18.0000-33.0000 Potassium (test code = Potassium) 4.2000 mmol/L 3.6000-5.1000 Chloride (test code = Chloride) 111.0000 mmol/L 96.0000-108.0000 ALT (SGPT) (test code = ALT (SGPT)) 23.0000 10.0000-47.0 000 Alkaline Phosphatase (test code = Alkaline 126.0000 42.00 00-141.0000 Phosphatase) AST (SGOT) (test code = AST (SGOT)) 28.0000 11.0000-37.0 000 Bilirubin, Total (test code = Bilirubin, 0.3000 mg/dL 0.0000- 1.6000 Total) BUN (test code = BUN) 15.0000 mg/dL 7.0000-22.0000 Creatinine (test code = Creatinine) 0.9000 mg/dL 0.5000-1.200 0 Protein, Total (test code = Protein, 6.7000 g/dL 6.4000-8.10 00 Total) Albumin (test code = Albumin) 4.2000 g/dL 3.5000-5.5000 Glucose (test code = Glucose) 109.0000 mg/dL 70.0000-118.0000 Calcium (test code = Calcium) 9.6200 mg/dL 8.0000-10.3000 [id number] 10:14:00 Test Item Value Reference Range Comments Creatinine (test code = Creatinine) 0.9000 mg/dL 0.5000-1.200 0 Cr Clearance (Est) (test code = Cr 105.5100 85.0000-125.0 000 Clearance (Est)) Glucose (test code = Glucose) 109.0000 mg/dL 70.0000-118.0000 BUN (test code = BUN) 15.0000 mg/dL 7.0000-22.0000 Sodium (test code = Sodium) 139.0000 mmol/L 128.0000-145.0000 Potassium (test code = Potassium) 4.2000 mmol/L 3.6000-5.1000 Chloride (test code = Chloride) 111.0000 mmol/L 96.0000-108.0000 CO2 (test code = CO2) 27.0000 mmol/L 18.0000-33.0000 Calcium (test code = Calcium) 9.6200 mg/dL 8.0000-10.3000 Alkaline Phosphatase (test code = Alkaline 126.0000 42.00 00-141.0000 Phosphatase) ALT (SGPT) (test code = ALT (SGPT)) 23.0000 10.0000-47.0 000 AST (SGOT) (test code = AST (SGOT)) 28.0000 11.0000-37.0 000 Bilirubin, Total (test code = Bilirubin, 0.3000 mg/dL 0.0000- 1.6000 Total) Albumin (test code = Albumin) 4.2000 g/dL 3.5000-5.5000 Protein, Total (test code = Protein, 6.7000 g/dL 6.4000-8.10 00 Total) eGFR -Ugandan (test code = eGFR 105.0000 60.0000- 200.0000 -Ugandan) eGFR Hfy-Vwnjazh-Rdojnjku (test code = 87.0000 60.0000-2 00.0000 eGFR Oyh-Oixwspv-Cgvywsjv) [id number] 00:00:00 Test Item Value Reference Range Comments CEA (test code = CEA) 693.9000 ng/mL 0.0000-4.7000 [id number] 12:07:00 Test Item Value Reference Range Comments HGB (test code = HGB) 12.9000 g/dL 11.2000-18.0000 MCHC (test code = MCHC) 33.0000 g/dL 31.5000-36.0000 MCV (test code = MCV) 95.3000 fL 80.0000-94.0000 MPV (test code = MPV) 7.9000 fL 6.8000-10.6000 MID (test code = MID) 0.4000 0.1000-1.1000 WBC (test code = WBC) 4.1000 4.0000-10.0000 PLT (test code = PLT) 223.0000 140.0000-440.0000 MCH (test code = MCH) 31.5000 pg 27.0000-34.0000 MID% (test code = MID%) 6.7000 % 1.2000-11.2000 RDW (test code = RDW) 14.7000 11.0000-18.0000 Lymphocytes % (test code = Lymphocytes %) 48.3000 % 22.400 0-43.6000 Neutrophils % (test code = Neutrophils %) 45.0000 % 48.900 0-69.9000 HCT (test code = HCT) 39.0000 % 34.0000-44.0000 RBC (test code = RBC) 4.0900 3.7000-4.9000 Neutrophils (test code = Neutrophils) 1.8000 1.5000-6.7 000 Lymphocytes (test code = Lymphocytes) 1.9000 1.2000-3.2 000 [id number] 12:07:00 Test Item Value Reference Range Comments WBC (test code = WBC) 4.1000 4.0000-10.0000 Lymphocytes % (test code = Lymphocytes %) 48.3000 % 22.400 0-43.6000 MID% (test code = MID%) 6.7000 % 1.2000-11.2000 Neutrophils % (test code = Neutrophils %) 45.0000 % 48.900 0-69.9000 Lymphocytes (test code = Lymphocytes) 1.9000 1.2000-3.2 000 MID (test code = MID) 0.4000 0.1000-1.1000 Neutrophils (test code = Neutrophils) 1.8000 1.5000-6.7 000 RBC (test code = RBC) 4.0900 3.7000-4.9000 HGB (test code = HGB) 12.9000 g/dL 11.2000-18.0000 HCT (test code = HCT) 39.0000 % 34.0000-44.0000 MCV (test code = MCV) 95.3000 fL 80.0000-94.0000 MCH (test code = MCH) 31.5000 pg 27.0000-34.0000 MCHC (test code = MCHC) 33.0000 g/dL 31.5000-36.0000 RDW (test code = RDW) 14.7000 11.0000-18.0000 PLT (test code = PLT) 223.0000 140.0000-440.0000 MPV (test code = MPV) 7.9000 fL 6.8000-10.6000 Alkaline [id number] 14:28:58 Test Item Value Reference Range Comments Alkaline Phosphatase (test code = Alkaline 154.0000 40.00 00-150.0000 Phosphatase) ALT (SGPT) (test code = ALT (SGPT)) 42.0000 0.0000-50.00 00 Cr Clearance (Est) (test code = Cr 107.1400 85.0000-125.0 000 Clearance (Est)) Chloride (test code = Chloride) 105.0000 mmol/L 96.0000-109.0000 Potassium (test code = Potassium) 4.0000 mmol/L 3.5000-5.5000 CO2 (test code = CO2) 27.0000 mmol/L 21.0000-32.0000 Sodium (test code = Sodium) 141.4000 mmol/L 135.0000-148.0000 AST (SGOT) (test code = AST (SGOT)) 41.0000 0.0000-45.00 00 BUN (test code = BUN) 11.0000 mg/dL 5.0000-26.0000 Creatinine (test code = Creatinine) 0.9000 mg/dL 0.5000-1.500 0 Bilirubin, Total (test code = Bilirubin, 0.6000 mg/dL 0.1000- 1.2000 Total) Protein, Total (test code = Protein, 7.8000 g/dL 6.0000-8.50 00 Total) Albumin (test code = Albumin) 4.6000 g/dL 3.5000-5.5000 Calcium (test code = Calcium) 9.5000 mg/dL 8.5000-10.6000 Glucose (test code = Glucose) 128.0000 mg/dL 60.0000-125.0000 [id number] 14:28:58 Test Item Value Reference Range Comments Glucose (test code = Glucose) 128.0000 mg/dL 60.0000-125.0000 BUN (test code = BUN) 11.0000 mg/dL 5.0000-26.0000 Creatinine (test code = Creatinine) 0.9000 mg/dL 0.5000-1.500 0 Cr Clearance (Est) (test code = Cr 107.1400 85.0000-125.0 000 Clearance (Est)) Sodium (test code = Sodium) 141.4000 mmol/L 135.0000-148.0000 Potassium (test code = Potassium) 4.0000 mmol/L 3.5000-5.5000 Chloride (test code = Chloride) 105.0000 mmol/L 96.0000-109.0000 CO2 (test code = CO2) 27.0000 mmol/L 21.0000-32.0000 Calcium (test code = Calcium) 9.5000 mg/dL 8.5000-10.6000 Protein, Total (test code = Protein, 7.8000 g/dL 6.0000-8.50 00 Total) Albumin (test code = Albumin) 4.6000 g/dL 3.5000-5.5000 Bilirubin, Total (test code = Bilirubin, 0.6000 mg/dL 0.1000- 1.2000 Total) Alkaline Phosphatase (test code = Alkaline 154.0000 40.00 00-150.0000 Phosphatase) AST (SGOT) (test code = AST (SGOT)) 41.0000 0.0000-45.00 00 ALT (SGPT) (test code = ALT (SGPT)) 42.0000 0.0000-50.00 00 [id number] 09:45:00 Test Item Value Reference Range Comments Lymphocytes (test code = Lymphocytes) 1.5000 1.2000-3.2 000 RBC (test code = RBC) 4.4000 3.7000-4.9000 MPV (test code = MPV) 7.0000 fL 6.8000-10.6000 MCV (test code = MCV) 96.4000 fL 80.0000-94.0000 MCHC (test code = MCHC) 33.3000 g/dL 31.5000-36.0000 HGB (test code = HGB) 14.1000 g/dL 11.2000-18.0000 PLT (test code = PLT) 304.0000 140.0000-440.0000 WBC (test code = WBC) .1999 4.0000-10.0000 MID (test code = MID) 0.6000 0.1000-1.1000 Neutrophils (test code = Neutrophils) 4.1000 1.5000-6.7 000 MCH (test code = MCH) 32.1000 pg 27.0000-34.0000 MID% (test code = MID%) 9.6000 % 1.2000-11.2000 HCT (test code = HCT) 42.4000 % 34.0000-44.0000 Neutrophils % (test code = Neutrophils %) 66.0000 % 48.900 0-69.9000 Lymphocytes % (test code = Lymphocytes %) 24.4000 % 22.400 0-43.6000 RDW (test code = RDW) 15.1999 11.0000-18.0000 [id number] 09:45:00 Test Item Value Reference Range Comments WBC (test code = WBC) 6.1999 4.0000-10.0000 Lymphocytes % (test code = Lymphocytes %) 24.4000 % 22.400 0-43.6000 MID% (test code = MID%) 9.6000 % 1.1999-11.1999 Neutrophils % (test code = Neutrophils %) 66.0000 % 48.900 0-69.9000 Lymphocytes (test code = Lymphocytes) 1.5000 1.2000-3.2 000 MID (test code = MID) 0.6000 0.1000-1.1000 Neutrophils (test code = Neutrophils) 4.1000 1.5000-6.7 000 RBC (test code = RBC) 4.4000 3.7000-4.9000 HGB (test code = HGB) 14.1000 g/dL 11.1999-18.0000 HCT (test code = HCT) 42.4000 % 34.0000-44.0000 MCV (test code = MCV) 96.4000 fL 80.0000-94.0000 MCH (test code = MCH) 32.1000 pg 27.0000-34.0000 MCHC (test code = MCHC) 33.3000 g/dL 31.5000-36.0000 RDW (test code = RDW) 15.1999 11.0000-18.0000 PLT (test code = PLT) 304.0000 140.0000-440.0000 MPV (test code = MPV) 7.0000 fL 6.8000-10.6000 [id number] 14:59:00 Test Item Value Reference Range Comments HCT (test code = HCT) 39.4000 % 34.0000-44.0000 RDW (test code = RDW) 14.1000 11.0000-18.0000 Lymphocytes % (test code = Lymphocytes %) 31.4000 % 22.400 0-43.6000 Neutrophils % (test code = Neutrophils %) 61.5000 % 48.900 0-69.9000 MID% (test code = MID%) 7.1000 % .1999-11.1999 MCH (test code = MCH) 32.6000 pg 27.0000-34.0000 Neutrophils (test code = Neutrophils) 5.9000 1.5000-6.7 000 MID (test code = MID) 0.6000 0.1000-1.1000 PLT (test code = PLT) 203.0000 140.0000-440.0000 WBC (test code = WBC) 9.5000 4.0000-10.0000 HGB (test code = HGB) 13.5000 g/dL 11.2000-18.0000 MCHC (test code = MCHC) 34.3000 g/dL 31.5000-36.0000 MPV (test code = MPV) 8.0000 fL 6.8000-10.6000 MCV (test code = MCV) 94.9000 fL 80.0000-94.0000 Lymphocytes (test code = Lymphocytes) 3.0000 1.2000-3.2 000 RBC (test code = RBC) 4.1500 3.7000-4.9000 [id number] 14:59:00 Test Item Value Reference Range Comments WBC (test code = WBC) 9.5000 4.0000-10.0000 Lymphocytes % (test code = Lymphocytes %) 31.4000 % 22.400 0-43.6000 MID% (test code = MID%) 7.1000 % 1.2000-11.2000 Neutrophils % (test code = Neutrophils %) 61.5000 % 48.900 0-69.9000 Lymphocytes (test code = Lymphocytes) 3.0000 1.2000-3.2 000 MID (test code = MID) 0.6000 0.1000-1.1000 Neutrophils (test code = Neutrophils) 5.9000 1.5000-6.7 000 RBC (test code = RBC) 4.1500 3.7000-4.9000 HGB (test code = HGB) 13.5000 g/dL 11.2000-18.0000 HCT (test code = HCT) 39.4000 % 34.0000-44.0000 MCV (test code = MCV) 94.9000 fL 80.0000-94.0000 MCH (test code = MCH) 32.6000 pg 27.0000-34.0000 MCHC (test code = MCHC) 34.3000 g/dL 31.5000-36.0000 RDW (test code = RDW) 14.1000 11.0000-18.0000 PLT (test code = PLT) 203.0000 140.0000-440.0000 MPV (test code = MPV) 8.0000 fL 6.8000-10.6000 Iron, [id number] 17:14:23 Test Item Value Reference Range Comments Iron, Total (test code = Iron, Total) 50.5000 40.0000-18 0.0000 TIBC (test code = TIBC) 341.0000 250.0000-450.0000 Ferritin (test code = Ferritin) 122.0000 ng/mL 22.0000-322.0000 % Iron Saturation (test code = % Iron 15.0000 % 15.0000-55 .0000 Saturation) [id number] 17:14:23 Test Item Value Reference Range Comments CEA (test code = CEA) 2700.0000 ng/mL 0.0000-3.0000 [id number] 17:14:23 Test Item Value Reference Range Comments Ferritin (test code = Ferritin) 122.0000 ng/mL 22.0000-322.0000 % Iron Saturation (test code = % Iron 15.0000 % 15.0000-55 .0000 Saturation) Iron, Total (test code = Iron, Total) 50.5000 40.0000-18 0.0000 TIBC (test code = TIBC) 341.0000 250.0000-450.0000 [id number] 09:00:00 Test Item Value Reference Range Comments HCT (test code = HCT) 42.4000 % 34.0000-44.0000 RDW (test code = RDW) 14.6000 11.0000-18.0000 Neutrophils % (test code = Neutrophils %) 75.7000 % 48.900 0-69.9000 Lymphocytes % (test code = Lymphocytes %) 18.1000 % 22.400 0-43.6000 MID% (test code = MID%) 6.2000 % 1.2000-11.2000 MCH (test code = MCH) 34.1000 pg 27.0000-34.0000 MCV (test code = MCV) 96.6000 fL 80.0000-94.0000 MPV (test code = MPV) 7.6000 fL 6.8000-10.6000 MCHC (test code = MCHC) 35.3000 g/dL 31.5000-36.0000 HGB (test code = HGB) 15.0000 g/dL 11.2000-18.0000 WBC (test code = WBC) 10.5000 4.0000-10.0000 PLT (test code = PLT) 270.0000 140.0000-440.0000 MID (test code = MID) 0.7000 0.1000-1.1000 Neutrophils (test code = Neutrophils) 7.9000 1.5000-6.7 000 Lymphocytes (test code = Lymphocytes) 1.9000 1.2000-3.2 000 RBC (test code = RBC) 4.3900 3.7000-4.9000 Alkaline [id number] 09:00:00 Test Item Value Reference Range Comments Alkaline Phosphatase (test code = Alkaline 139.0000 42.00 00-141.0000 Phosphatase) ALT (SGPT) (test code = ALT (SGPT)) 38.0000 10.0000-47.0 000 AST (SGOT) (test code = AST (SGOT)) 34.0000 11.0000-37.0 000 Sodium (test code = Sodium) 133.0000 mmol/L 128.0000-145.0000 CO2 (test code = CO2) 27.0000 mmol/L 18.0000-33.0000 Potassium (test code = Potassium) 4.2000 mmol/L 3.6000-5.1000 eGFR -Ugandan (test code = eGFR 93.0000 60.0000- 200.0000 -Ugandan) eGFR Ayh-Utptvcn-Hatwuiwq (test code = 77.0000 60.0000-2 00.0000 eGFR Iut-Rfxzshk-Jclluhxh) Chloride (test code = Chloride) 106.0000 mmol/L 96.0000-108.0000 Cr Clearance (Est) (test code = Cr 98.7200 85.0000-125.0 000 Clearance (Est)) Protein, Total (test code = Protein, 6.9000 g/dL 6.4000-8.10 00 Total) Albumin (test code = Albumin) 4.3000 g/dL 3.5000-5.5000 Calcium (test code = Calcium) 9.5600 mg/dL 8.0000-10.3000 BUN (test code = BUN) 13.0000 mg/dL 7.0000-22.0000 Bilirubin, Total (test code = Bilirubin, 0.4000 mg/dL 0.0000- 1.6000 Total) Creatinine (test code = Creatinine) 1.0000 mg/dL 0.5000-1.200 0 Glucose (test code = Glucose) 155.0000 mg/dL 70.0000-118.0000 [id number] 09:00:00 Test Item Value Reference Range Comments WBC (test code = WBC) 10.5000 4.0000-10.0000 Lymphocytes % (test code = Lymphocytes %) 18.1000 % 22.400 0-43.6000 MID% (test code = MID%) 6.2000 % 1.2000-11.2000 Neutrophils % (test code = Neutrophils %) 75.7000 % 48.900 0-69.9000 Lymphocytes (test code = Lymphocytes) 1.9000 1.2000-3.2 000 MID (test code = MID) 0.7000 0.1000-1.1000 Neutrophils (test code = Neutrophils) 7.9000 1.5000-6.7 000 RBC (test code = RBC) 4.3900 3.7000-4.9000 HGB (test code = HGB) 15.0000 g/dL 11.2000-18.0000 HCT (test code = HCT) 42.4000 % 34.0000-44.0000 MCV (test code = MCV) 96.6000 fL 80.0000-94.0000 MCH (test code = MCH) 34.1000 pg 27.0000-34.0000 MCHC (test code = MCHC) 35.3000 g/dL 31.5000-36.0000 RDW (test code = RDW) 14.6000 11.0000-18.0000 PLT (test code = PLT) 270.0000 140.0000-440.0000 MPV (test code = MPV) 7.6000 fL 6.8000-10.6000 [id number] 09:00:00 Test Item Value Reference Range Comments Creatinine (test code = Creatinine) 1.0000 mg/dL 0.5000-1.200 0 Cr Clearance (Est) (test code = Cr 98.7200 85.0000-125.0 000 Clearance (Est)) Glucose (test code = Glucose) 155.0000 mg/dL 70.0000-118.0000 BUN (test code = BUN) 13.0000 mg/dL 7.0000-22.0000 Sodium (test code = Sodium) 133.0000 mmol/L 128.0000-145.0000 Potassium (test code = Potassium) 4.2000 mmol/L 3.6000-5.1000 Chloride (test code = Chloride) 106.0000 mmol/L 96.0000-108.0000 CO2 (test code = CO2) 27.0000 mmol/L 18.0000-33.0000 Calcium (test code = Calcium) 9.5600 mg/dL 8.0000-10.3000 Alkaline Phosphatase (test code = Alkaline 139.0000 42.00 00-141.0000 Phosphatase) ALT (SGPT) (test code = ALT (SGPT)) 38.0000 10.0000-47.0 000 AST (SGOT) (test code = AST (SGOT)) 34.0000 11.0000-37.0 000 Bilirubin, Total (test code = Bilirubin, 0.4000 mg/dL 0.0000- 1.6000 Total) Albumin (test code = Albumin) 4.3000 g/dL 3.5000-5.5000 Protein, Total (test code = Protein, 6.9000 g/dL 6.4000-8.10 00 Total) eGFR -Ugandan (test code = eGFR 93.0000 60.0000- 200.0000 -Ugandan) eGFR Dpe-Boujhkk-Ixguzrkf (test code = 77.0000 60.0000-2 00.0000 eGFR Dmo-Maxcevd-Qyiknmlx) [id number] 08:23:17 Test Item Value Reference Range Comments HGB (test code = HGB) 14.2000 g/dL 12.5000-17.0000 MCV (test code = MCV) 98.0000 fL 80.0000-98.0000 Neutrophils (Gran) (test code = Neutrophils 4.3000 1.80 00-7.8000 (Gran)) Platelet Count (test code = Platelet Count) 227.0000 140. 0000-415.0000 WBC (test code = WBC) 7.5000 4.0000-10.5000 HCT (test code = HCT) 41.2000 % 36.0000-50.0000 [id number] 08:23:17 Test Item Value Reference Range Comments WBC (test code = WBC) 7.5000 4.0000-10.5000 HGB (test code = HGB) 14.2000 g/dL 12.5000-17.0000 HCT (test code = HCT) 41.2000 % 36.0000-50.0000 MCV (test code = MCV) 98.0000 fL 80.0000-98.0000 Platelet Count (test code = Platelet Count) 227.0000 140. 0000-415.0000 Neutrophils (Gran) (test code = Neutrophils 4.3000 1.80 00-7.8000 (Gran)) BUN/Creatinine [id number] 08:25:02 Test Item Value Reference Range Comments BUN/Creatinine Ratio (test code = 140.8000 8.0000-28.0000 BUN/Creatinine Ratio) ALT (SGPT) (test code = ALT (SGPT)) 117.0000 0.0000-50.00 00 Alkaline Phosphatase (test code = Alkaline 135.0000 40.00 00-150.0000 Phosphatase) AST (SGOT) (test code = AST (SGOT)) 102.0000 0.0000-45.00 00 Potassium (test code = Potassium) 4.7000 mmol/L 3.5000-5.5000 Chloride (test code = Chloride) 105.0000 mmol/L 96.0000-109.0000 CO2 (test code = CO2) 26.0000 mmol/L 21.0000-32.0000 Cr Clearance (Est) (test code = Cr 99.8300 85.0000-125.0 000 Clearance (Est)) Protein, Total (test code = Protein, Total) 8.0000 g/dL 6.00 00-8.5000 Albumin (test code = Albumin) 4.7000 g/dL 3.5000-5.5000 Calcium (test code = Calcium) 10.3000 mg/dL 8.5000-10.6000 Glucose (test code = Glucose) 88.0000 mg/dL 60.0000-125.0000 Creatinine (test code = Creatinine) 0.9900 mg/dL 0.5000-1.500 0 Bilirubin, Total (test code = Bilirubin, 0.4000 mg/dL 0.1000- 1.2000 Total) BUN (test code = BUN) 12.0000 mg/dL 5.0000-26.0000 [id number] 08:25:02 Test Item Value Reference Range Comments Glucose (test code = Glucose) 88.0000 mg/dL 60.0000-125.0000 BUN (test code = BUN) 12.0000 mg/dL 5.0000-26.0000 Creatinine (test code = Creatinine) 0.9900 mg/dL 0.5000-1.500 0 Cr Clearance (Est) (test code = Cr 99.8300 85.0000-125.0 000 Clearance (Est)) BUN/Creatinine Ratio (test code = 140.8000 8.0000-28.0000 BUN/Creatinine Ratio) Potassium (test code = Potassium) 4.7000 mmol/L 3.5000-5.5000 Chloride (test code = Chloride) 105.0000 mmol/L 96.0000-109.0000 CO2 (test code = CO2) 26.0000 mmol/L 21.0000-32.0000 Calcium (test code = Calcium) 10.3000 mg/dL 8.5000-10.6000 Protein, Total (test code = Protein, Total) 8.0000 g/dL 6.00 00-8.5000 Albumin (test code = Albumin) 4.7000 g/dL 3.5000-5.5000 Bilirubin, Total (test code = Bilirubin, 0.4000 mg/dL 0.1000- 1.2000 Total) Alkaline Phosphatase (test code = Alkaline 135.0000 40.00 00-150.0000 Phosphatase) AST (SGOT) (test code = AST (SGOT)) 102.0000 0.0000-45.00 00 ALT (SGPT) (test code = ALT (SGPT)) 117.0000 0.0000-50.00 00 Comp. Metabolic Panel ([id number]) ([id number])2017-09-15 00:00:00 Test Item Value Reference Range Comments Creatinine, Serum (test code = 2160-0) 0.83 mg/dL 0.76-1.27 Calcium, Serum (test code = 13790-7) 9.5 mg/dL 8.7-10.2 Globulin, Total (test code = 23156-3) 2.8 g/dL 1.5-4.5 Chloride, Serum (test code = 2075-0) 99 mmol/L 96-106 Sodium, Serum (test code = 2951-2) 140 mmol/L 134-144 Carbon Dioxide, Total (test code = 2028-9) 21 mmol/L 18-29 A/G Ratio (test code = 1759-0) 1.7 1.2-2.2 eGFR If NonAfricn Am (test code = 36008-9) 99 mL/min/1.73 >59 Alkaline Phosphatase, S (test code = 6768-6) 122 IU/L 39- 117 Potassium, Serum (test code = 2823-3) 3.7 mmol/L 3.5-5.2 BUN/Creatinine Ratio (test code = 3097-3) 5 9-20 Glucose, Serum (test code = 2345-7) 87 mg/dL 65-99 Bilirubin, Total (test code = 1975-2) 0.5 mg/dL 0.0-1.2 BUN (test code = 3094-0) 4 mg/dL 6-24 eGFR If Africn Am (test code = 22376-967) 115 mL/min/1.73 >59 ALT (SGPT) (test code = 1742-6) 75 IU/L 0-44 Albumin, Serum (test code = 1751-7) 4.7 g/dL 3.5-5.5 Protein, Total, Serum (test code = 2885-2) 7.5 g/dL 6.0-8 .5 AST (SGOT) (test code = 1920-8) 66 IU/L 0-40 Hemoglobin A1c ([id number]) ([id number])2016-03-06 00:00:00 Test Item Value Reference Range Comments Estimated Average Glucose (test code = 06932-7) 128 mg/dL <117 Hemoglobin A1C (test code = 4548-4) 6.1 % <5.7 CBC w/ Diff ([id number]) ([id number])2015-12-05 00:00:00 Test Item Value Reference Range Comments Eos % (test code = 713-8) 2 % 0-5 Absolute Gran (test code = 7.2 K/uL 1.7-7.7 751-8) Baso % (test code = 706-2) 0 % 0-1 RDW (test code = 788-0) 13.8 % 11.5-15.5 Platelet Count (test code = 361 K/uL 150-400 777-3) WBC (test code = 6690-2) 11.5 K/uL 4.0-10.5 Hemoglobin (test code = 718-7) 16.8 g/dL 13.0-17.0 Absolute Eos (test code = 711-2) 0.2 K/uL 0.0-0.7 MPV (test code = 72244-5) 9.0 fL 8.6-12.4 MCV (test code = 787-2) 90.5 fL 78.0-100.0 Absolute Lymph (test code = 3.1 K/uL 0.7-4.0 731-0) MCH (test code = 785-6) 32.4 pg 26.0-34.0 Absolute Cassia (test code = 0.9 K/uL 0.1-1.0 742-7) Granulocyte % (test code = 63 % 43-77 770-8) MCHC (test code = 786-4) 35.8 g/dL 30.0-36.0 Cassia % (test code = 5905-5) 8 % 3-12 Lymph % (test code = 736-9) 27 % 12-46 RBC (test code = 789-8) 5.18 MIL/uL 4.22-5.81 Hematocrit (test code = 4544-3) 46.9 % 39.0-52.0 Absolute Baso (test code = 0.0 K/uL 0.0-0.1 704-7) Smear Review (test code = Criteria for review not met 5909-7) TSH (THYROID STIMULATING HORMONE) ([id number]) ([id number])2015-12-05 00:00:00 Test Item Value Reference Range Comments TSH (test code = 3016-3) 1.689 uIU/mL 0.350-4.500 CMP w/ ESTIMATED GFR (S2402) (69252)2015-12-05 00:00:00 Test Item Value Reference Range Comments Est GFR, NonAfrican [place] (test code = >89 mL/min 28780-7) Calcium (test code = 93909-7) 10.1 mg/dL 8.4-10.5 Est GFR, (test code = 86318-4) >89 mL/min ALT/SGPT (test code = 1742-6) 42 U/L 0-53 Potassium (test code = 2823-3) 4.1 mEq/L 3.5-5.3 AST/SGOT (test code = 1920-8) 24 U/L 0-37 Creatinine (test code = 2160-0) 0.94 mg/dL 0.50-1.35 BUN (test code = 3094-0) 7 mg/dL 6-23 Bilirubin, Total (test code = 1974-) 0.5 mg/dL 0.2-1.2 Total Protein (test code = 2885-2) 7.3 g/dL 6.0-8.3 Chloride (test code = 2074-0) 105 mEq/L 96-112 CO2 (test code = 2027-9) 24 mEq/L 19-32 Albumin (test code = 1751-7) 4.2 g/dL 3.5-5.2 Alkaline Phosphatase (test code = 6768-6) 103 U/L 39-117 Glucose (test code = 2345-7) 142 mg/dL 70-99 Sodium (test code = 2951-2) 139 mEq/L 135-145 DRUG SCREEN 16 W/CONF, WB Test Item Value Reference Range Comments AMPHETAMINES, IA (test code = 36249-1) N NG/ML CUTOFF:50 NEGATIVE BARBITURATES, IA (test code = 3376-1) N UG/ML CUTOFF:0.1 NEGATIVE BENZODIAZEPINES, IA (test code = 93690-9) N NG/ML CUTOFF :20 NEGATIVE COCAINE/METABOLITE,IA (test code = 74582-0) N NG/ML CUTO FF:25 NEGATIVE PHENCYCLIDINE, IA (test code = 91173-4) N NG/ML CUTOFF:8 NEGATIVE THC (MARIJUANA) MTB,IA (test code = 89998-9) N NG/ML CUT OFF:5 NEGATIVE OPIATES, IA (test code = 93173-7) N NG/ML CUTOFF:5 NEGATIVE OXYCODONES, IA (test code = 76982-9) N NG/ML CUTOFF:5 NEGATIVE METHADONE, IA (test code = 94116-2) N NG/ML CUTOFF:25 NEGATIVE FENTANYL, IA (test code = 58436-0) N NG/ML CUTOFF:1.0 NEGATIVE BUPRENORPHINE, IA (test code = 16212-0) N NG/ML CUTOFF:1 .0 NEGATIVE PROPOXYPHENE, IA (test code = 75710-8) N NG/ML CUTOFF:50 NEGATIVE MEPERIDINE, IA (test code = 11258-1) N NG/ML CUTOFF:100 NEGATIVE TRAMADOL, IA (test code = 16413-3) N NG/ML CUTOFF:50 NEGATIVE GABAPENTIN, IA (test code = 93372-0) N UG/ML CUTOFF:1.0 NEGATIVE CARISOPRODOL, IA (test code = 67986-0) N UG/ML CUTOFF:0. 5 NEGATIVE Assessments Condition Name Status Diagnosis Date Treating Clinici an Malignant neoplasm of colon, unspecified Active 0 Mood disorder Active Insomnia Active Alcoholism, chronic Active Encounter for health education Active Body mass index (BMI) of 25.0-25.9 in adult Active Hyperglycemia Active Hyperglycemia Active Encounter for health education Active Encounter for health education Active Fast heart beat Active Fast heart beat Active Fast heart beat Active Tremor, essential (333.1) Active BP (high blood pressure) Active Tremor, essential (333.1) Active BP (high blood pressure) Active Tremor, essential (333.1) Active BP (high blood pressure) Active Encounters Start End Encounter Admission Attending Care Care Encounter Date/Time Date/Time Type Type Clinicians Facility Department ID 2020-09-18 2020-09-18 [facility] [id number] 00:00:00 00:00:00 Karissa rn [facility] [place] 2020-09-12 2020-09-12 [facility] [id number] 00:00:00 00:00:00 rn [facility] [place] 2020-09-06 2020-09-06 [facility] [id number] 00:00:00 00:00:00 rn Medical Medical Oncology Oncology [facility] 2020-08-05 2020-08-05 Gary Kumar [facility] [id number] 11:36:58 11:36:58 Gary Paez 2020-08-05 2020-08-05 Outpatient [facility] [id number] 00:00:00 00:00:00 rn [facility] On[facility] [place] 2020-04-01 2020-08-02 Gary Kumar [facility] [id number] 09:17:10 09:44:00 Gary Paez 2020-07-01 2020-07-01 Outpatient [facility] [id number] 00:00:00 00:00:00 rn Medical [facility] On[facility] [place] 2020-06-27 2020-06-27 Outpatient [facility] [id number] 00:00:00 00:00:00 rn Medical [facility] On[facility] [place] 2020-06-11 2020-06-11 Outpatient [facility] [id number] 00:00:00 00:00:00 rn Medical [facility] On[facility] [place] 2020-05-21 2020-05-21 Outpatient [facility] [id number] 00:00:00 00:00:00 rn [facility] On[facility] [place] 2020-04-15 2020-04-15 Outpatient [facility] [id number] 00:00:00 00:00:00 rn [facility] On[facility] [place] 2020-04-01 2020-04-01 Outpatient [facility] [id number] 00:00:00 00:00:00 rn Medical [facility] Oncology [facility] [place] 2020-01-01 2020-03-28 Gary Kumar [facility] [id number] 10:09:34 00:01:00 Gary Paez 2019-12-18 2020-03-13 D Marycruz Gary Paez [facility] [id number] 08:00:00 09:31:00 Gary Paez 2020-02-06 2020-02-06 Outpatient [facility] [id number] 00:00:00 00:00:00 rn [facility] Oncology [facility] 2020-01-02 2020-01-02 Outpatient [facility] [id number] 00:00:00 00:00:00 2020-01-01 2020-01-01 Outpatient [facility] [id number] 00:00:00 00:00:00 rn Medical [facility] On[facility] [place] 2019-04-28 2019-04-28 Outpatient [facility] [id number] 00:00:00 00:00:00 rn [facility] On[facility] [place] 2019-04-26 2019-04-26 Outpatient [facility] [id number] 00:00:00 00:00:00 Karissa aguirre [facility] [place] 2019-04-19 2019-04-19 Outpatient [facility] [id number] 00:00:00 00:00:00 Karissa aguirre [facility] 2019-04-17 2019-04-17 Outpatient [facility] [id number] 00:00:00 00:00:00 rn Medical Medical Oncology [facility] [place] 2019-04-14 2019-04-14 Outpatient [facility] [id number] 00:00:00 00:00:00 Karissa aguirre [facility] [place] 2019-04-13 2019-04-13 [facility] [id number] [facility]:00 00:00:00 rn [facility] On[facility] [place] 2019-04-12 2019-04-12 [facility] [id number] 00:00:00 00:00:00 Nelly Hancock rn Medical Medical Oncology [facility]cology [facility] 2019-04-05 2019-04-05 Outpatient [facility] [id number] 00:00:00 00:00:00 Karissa aguirre [facility] 2019-04-03 2019-04-03 Outpatient [facility] [id number] 00:00:00 00:00:00 rn Medical Medical Oncology [facility] [place] 2019-03-29 2019-03-29 Outpatient Asaad, [facility] [id number] 00:00:00 00:00:00 Karissa rn [facility] [place] 2019-03-27 2019-03-27 [facility] [id number] 00:00:00 00:00:00 rn [facility] On[facility] [place] 2019-03-22 2019-03-22 [facility] [id number] 00:00:00 00:00:00 Karissa rn [facility] Oncology [facility] [place] 2019-03-15 2019-03-15 Outpatient [facility] [id number] 00:00:00 00:00:00 Herb aguirre [facility] [place] 2019-03-10 2019-03-10 Last [facility] 2 [id number] 00:00:00 00:00:00 Nelly Estevez rn [facility] Oncology [facility] [place] 2019-03-08 2019-03-08 ThomasLast [facility] 2 [id number] 00:00:00 00:00:00 Nelly Estevez rn Medical [facility] Oncology [facility] [place] 2019-03-01 2019-03-01 Outpatient Mounika [facility] [id number] 00:00:00 00:00:00 Karissa aguirre [facility] [place] 2019-02-28 2019-02-28 Outpatient Asarobert [facility] [id number] 00:00:00 00:00:00 Karissa aguirre [facility] [place] 2019-02-24 2019-02-24 Outpatient [facility] [id number] 00:00:00 00:00:00 Karissa rn [facility] On[facility] [place] 2019-02-22 2019-02-22 Outpatient Asaad [facility] [id number] 00:00:00 00:00:00 Karissa rn [facility] On[facility] [place] 2019-02-21 2019-02-21 [facility] [id number] 00:00:00 00:00:00 Karissa rn [facility] On[facility] [place] 2019-02-17 2019-02-17 Outpatient Asaad [facility] [id number] 00:00:00 00:00:00 Karsisa rn [facility] On[facility] [place] 2019-02-16 2019-02-16 Outpatient [facility] [id number] 00:00:00 00:00:00 rn Medical [facility] Oncology [facility] [place] 2019-02-15 2019-02-15 Outpatient [facility] [id number] 00:00:00 00:00:00 Karissa aguirre [facility] [place] 2019-02-14 2019-02-14 Mounika Thomas [facility] 20 [id number] 00:00:00 00:00:00 Nelly Hancock rn Medical Medical Oncology [facility] [place] 2019-02-13 2019-02-13 Outpatient [facility] [id number] 00:00:00 00:00:00 rn Medical [facility] Oncology [facility] [place] 2019-02-07 2019-02-07 Outpatient [facility] [id number] 00:00:00 00:00:00 Karissa aguirre [facility] [place] 2019-02-06 2019-02-06 Outpatient [facility] [id number] 00:00:00 00:00:00 Karissa aguirre [facility] [place] 2019-02-01 2019-02-01 Outpatient [facility] [id number] 00:00:00 00:00:00 Karissa aguirre [facility] [place] 2019-01-31 2019-01-31 Outpatient [facility] [id number] 00:00:00 00:00:00 Karissa aguirre [facility] [place] 2019-01-24 2019-01-24 Outpatient [facility] [id number] 00:00:00 00:00:00 Karissa aguirre [facility] [place] 2019-01-23 2019-01-23 Outpatient [facility] [id number] 00:00:00 00:00:00 rn [facility] Oncology [facility] [place] 2019-01-17 2019-01-17 Mounika Thomas [facility] 20 [id number] 00:00:00 00:00:00 Nelly Hancock rn Medical Medical Oncology [facility] [place] 2019-01-12 2019-01-12 Outpatient [facility] [id number] 00:00:00 00:00:00 rn [facility] Oncology [facility] [place] 2019-01-10 2019-01-10 Outpatient [facility] [id number] 00:00:00 00:00:00 Karissa aguirre [facility] [place] 2019-01-09 2019-01-09 Outpatient [facility] [id number] 00:00:00 00:00:00 rn Medical [facility] Oncology [facility] [place] 2019-01-04 2019-01-04 Outpatient Mounika [facility] [id number] 00:00:00 00:00:00 Karissa aguirre [facility] 2019-01-03 2019-01-03 Mounika Thomas [facility] [id number] 00:00:00 00:00:00 Nelly Hancock rn [facility] On[facility] 2018-12-29 2018-12-29 Outpatient [facility] [id number] 00:00:00 00:00:00 rn [facility] On[facility] 2018-12-28 2018-12-28 Outpatient [facility] [id number] 00:00:00 00:00:00 rn [facility] On[facility] 2018-12-27 2018-12-27 Outpatient Mounika [facility] [id number] 00:00:00 00:00:00 Karissa aguirre [facility] 2018-12-21 2018-12-21 Outpatient Mounika [facility] [id number] 00:00:00 00:00:00 Karissa aguirre [facility] 2018-12-20 2018-12-20 Outpatient Mounika [facility] [id number] 00:00:00 00:00:00 Karissa aguirre [facility] 2018-12-19 2018-12-19 [facility] [id number] [facility]:00:00 00:00:00 Nelly Estevez rn [facility] On[facility] 2018-12-16 2018-12-16 Outpatient [facility] [id number] 00:00:00 00:00:00 rn [facility] On[facility] 2018-12-13 2018-12-13 Outpatient Mounika [facility] [id number] 00:00:00 00:00:00 Karissa aguirre [facility] 2018-12-12 2018-12-12 Outpatient Asaad [facility] [id number] 00:00:00 00:00:00 Karissa aguirre [facility] 2018-12-09 2018-12-09 [id number]:00:00 00:00:00 Karissa aguirre [facility] 2018-12-07 2018-12-07 Outpatient [facility] [id number] 00:00:00 00:00:00 rn [facility] On[facility] [place] 2018-12-03 2018-12-03 Outpatient [facility] [id number] 00:00:00 00:00:00 rn Medical [facility] Oncology [facility] [place] 2018-12-01 2018-12-01 Dr. Mounika Ribera, [facility] [id number] 00:00:00 00:00:00 Karissa Hancock [facility] [place] 2018-11-30 2018-11-30 [facility] [id number] 00:00:00 00:00:00 rn [facility] Oncology [facility] [place] 2018-11-28 2018-11-28 Outpatient [facility] [id number] 00:00:00 00:00:00 rn [facility] On[facility] [place] 2018-11-26 2018-11-26 [facility] [id number] 00:00:00 00:00:00 rn [facility] On[facility] [place] 2018-11-25 2018-11-25 Outpatient [facility] [id number] 00:00:00 00:00:00 rn Medical [facility] On[facility] [place] 2018-11-24 2018-11-24 Outpatient [facility] [id number] 00:00:00 00:00:00 rn Medical [facility] Oncology [facility] [place] 2018-11-23 2018-11-23 Outpatient [facility] [id number] 00:00:00 00:00:00 rn Medical [facility] Oncology [facility] [place] 2018-11-09 2018-11-09 Outpatient [facility] [id number] 00:00:00 00:00:00 rn Medical [facility] Oncology [facility] [place] 2018-03-06 2018-03-06 Outpatient [facility] [id number] 00:00:00 00:00:00 rn [facility] On[facility] [place] 2017-09-14 2017-09-14 [facility] [place] [id number] 15:59:00 15:59:00 [facility] 2016-03-05 2016-03-05 [facility] [place] [id number] 14:40:00 14:40:00 [facility] 2015-12-04 2015-12-04 [facility] [place] [id number] 14:18:00 14:18:00 [facility] Payers Payer Name Policy Type Policy Number Effective Date Expiration D ate Plan of Treatment Planned Activity Planned Date Details Comments Future Scheduled Test [code = ] Future Scheduled Test [code = ] Future Scheduled Test [code = ] Future Scheduled Test [code = ] Future Scheduled Test [code = ] Future Scheduled Test [code = ] Future Scheduled Test [code = ] Social History Smoking Status Start Date Stop Date Current every day smoker 2019-04-12 00:00:00 2019-04-12 00:0 0:00 Social History Observation Description Sex Male Vital Signs Vital Name Observation Time Observation Value Comments BMI 2019-04-12 08:28:39 29.5700 BP gutierrez 2019-04-12 08:28:39 80.0000 mm[Hg] Bdy height 2019-04-12 08:28:39 67.0000 [in_i] Heart rate 2019-04-12 08:28:39 81.0000 /min Resp rate 2019-04-12 08:28:39 18.0000 /min BP sys 2019-04-12 08:28:39 139.0000 mm[Hg] Body temperature 2019-04-12 08:28:39 97.9000 [degF] Weight 2019-04-12 08:28:39 188.8000 [lb_av] BMI 2019-03-08 08:55:14 29.3800 BP gutierrez 2019-03-08 08:55:14 71.0000 mm[Hg] Bdy height 2019-03-08 08:55:14 67.0000 [in_i] Heart rate 2019-03-08 08:55:14 70.0000 /min Resp rate 2019-03-08 08:55:14 20.0000 /min BP sys 2019-03-08 08:55:14 131.0000 mm[Hg] Body temperature 2019-03-08 08:55:14 97.0000 [degF] Weight 2019-03-08 08:55:14 187.6000 [lb_av] BMI 2019-02-22 08:52:53 29.4100 BP gutierrez 2019-02-22 08:52:53 94.0000 mm[Hg] Bdy height 2019-02-22 08:52:53 67.0000 [in_i] SaO2% BldA PulseOx 2019-02-22 08:52:53 99.0000 % Heart rate 2019-02-22 08:52:53 72.0000 /min Resp rate 2019-02-22 08:52:53 20.0000 /min BP sys 2019-02-22 08:52:53 154.0000 mm[Hg] Body temperature 2019-02-22 08:52:53 99.0000 [degF] Weight 2019-02-22 08:52:53 187.8000 [lb_av] BMI 2019-02-14 09:41:29 28.9400 BP gutierrez 2019-02-14 09:41:29 81.0000 mm[Hg] Bdy height 2019-02-14 09:41:29 67.0000 [in_i] Heart rate 2019-02-14 09:41:29 75.0000 /min Resp rate 2019-02-14 09:41:29 16.0000 /min BP sys 2019-02-14 09:41:29 110.0000 mm[Hg] Body temperature 2019-02-14 09:41:29 97.0000 [degF] Weight 2019-02-14 09:41:29 184.8000 [lb_av] BMI 2019-01-17 10:26:40 28.4400 BP gutierrez 2019-01-17 10:26:40 79.0000 mm[Hg] Bdy height 2019-01-17 10:26:40 67.0000 [in_i] Heart rate 2019-01-17 10:26:40 93.0000 /min Resp rate 2019-01-17 10:26:40 17.0000 /min BP sys 2019-01-17 10:26:40 145.0000 mm[Hg] Body temperature 2019-01-17 10:26:40 99.1000 [degF] Weight 2019-01-17 10:26:40 181.6000 [lb_av] BMI 2019-01-03 10:12:10 28.8800 BP gutierrez 2019-01-03 10:12:10 87.0000 mm[Hg] Bdy height 2019-01-03 10:12:10 67.0000 [in_i] Heart rate 2019-01-03 10:12:10 86.0000 /min Resp rate 2019-01-03 10:12:10 16.0000 /min BP sys 2019-01-03 10:12:10 142.0000 mm[Hg] Body temperature 2019-01-03 10:12:10 98.5000 [degF] Weight 2019-01-03 10:12:10 184.4000 [lb_av] BMI 2018-12-19 09:13:16 29.5700 BP gutierrez 2018-12-19 09:13:16 88.0000 mm[Hg] Bdy height 2018-12-19 09:13:16 67.0000 [in_i] Heart rate 2018-12-19 09:13:16 98.0000 /min Resp rate 2018-12-19 09:13:16 20.0000 /min BP sys 2018-12-19 09:13:16 132.0000 mm[Hg] Body temperature 2018-12-19 09:13:16 96.6000 [degF] Weight 2018-12-19 09:13:16 188.8000 [lb_av] BMI 2018-12-09 11:36:50 30.0700 BP gutierrez 2018-12-09 11:36:50 88.0000 mm[Hg] Bdy height 2018-12-09 11:36:50 67.0000 [in_i] Heart rate 2018-12-09 11:36:50 91.0000 /min Resp rate 2018-12-09 11:36:50 18.0000 /min BP sys 2018-12-09 11:36:50 153.0000 mm[Hg] Body temperature 2018-12-09 11:36:50 97.6000 [degF] Weight 2018-12-09 11:36:50 192.0000 [lb_av] BMI 2018-12-01 15:10:13 29.6000 BP gutierrez 2018-12-01 15:10:13 79.0000 mm[Hg] Bdy height 2018-12-01 15:10:13 67.0000 [in_i] SaO2% BldA PulseOx 2018-12-01 15:10:13 98.0000 % Heart rate 2018-12-01 15:10:13 79.0000 /min Resp rate 2018-12-01 15:10:13 18.0000 /min BP sys 2018-12-01 15:10:13 133.0000 mm[Hg] Body temperature 2018-12-01 15:10:13 98.5000 [degF] Weight 2018-12-01 15:10:13 189.0000 [lb_av]
== END 2020-09-24 22:54 | disposition home or self-care (01) ==
LOC: ER 11:29
DX: C78.5 Secondary malignant neoplasm of large intestine and rectum (principal); K82.0 Obstruction of gallbladder; K40.20 Bilateral inguinal hernia, without obstruction or gangrene, not specified as recurrent; R14.0 Abdominal distension (gaseous); K76.0 Fatty (change of) liver, not elsewhere classified; N28.89 Other specified disorders of kidney and ureter; J90 Pleural effusion, not elsewhere classified; J98.11 Atelectasis; K76.9 Liver disease, unspecified; I10 Essential (primary) hypertension; R63.0 Anorexia; R91.8 Other nonspecific abnormal finding of lung field; F17.200 Nicotine dependence, unspecified, uncomplicated; Z92.21 Personal history of antineoplastic chemotherapy; Z88.8 Allergy status to other drugs, medicaments and biological substances; Z91.013 Allergy to seafood; Z91.018 Allergy to other foods
CPT/HCPCS: 96376; 99285; 96361; 96374; 96375; 36415; 80307; 82150; 83690; 85025; 85610; 85730; 80053; 81001; 74181; 76705; 93976; 74177; J2765; J2270; J7030

== ENCOUNTER 2020-10-07 14:10 | Emergency (ER) | payer MEDICAID ==
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
[2020-10-07 16:57] LABS: HEMATOCRIT 38.4 % (37.9-51.0); HEMOGLOBIN 13.4 g/dL (13.5-17.0); MEAN CORPUSCULAR HEMOGLOBIN 34.7 pg (27.0-33.4); MEAN CORPUSCULAR HGB CONC 34.8 g/dL (32.0-36.0); MEAN CORPUSCULAR VOLUME 100 fl (80-97); PLATELET COUNT 383 10^3/uL (150-450); RED BLOOD COUNT 3.85 10^6/uL (4.35-5.55); RED CELL DISTRIBUTION WIDTH 17.2 % (11.5-14.0); WHITE BLOOD COUNT 16.8 10^3/uL (4.0-10.5)
[2020-10-07 17:11] LABS: ALBUMIN 3.3 g/dL (3.5-5.0); ANION GAP 14 (5-19); ASPARTATE AMINO TRANSFERASE 150 U/L (17-59); BLOOD UREA NITROGEN 16 mg/dL (7-20); CALCIUM 9.8 mg/dL (8.4-10.2); CARBON DIOXIDE 19 mmol/L (22-30); CHLORIDE 101 mmol/L (98-107); GLUCOSE 144 mg/dL (75-110); POTASSIUM 4.1 mmol/L (3.6-5.0)
[2020-10-07 17:20] LABS: BILIRUBIN,TOTAL 32.4 mg/dL (0.2-1.3)
[2020-10-07 17:21] LABS: ALKALINE PHOSPHATASE 760 U/L (38-126); BILIRUBIN,DIRECT 30.2 mg/dL (0.0-0.4); TOTAL PROTEIN 7.4 g/dL (6.3-8.2)
[2020-10-07 17:26] LABS: ABSOLUTE LYMPHOCYTES# (MANUAL) 1.5 10^3/uL (0.5-4.7); BAND NEUTROPHILS % (MANUAL) 2 % (3-5); BASOPHILS % (MANUAL) 0 % (0-2); EOSINOPHILS % (MANUAL) 1 % (0-6); LYMPHOCYTES % (MANUAL) 9 % (13-45); METAMYELOCYTES % (MANUAL) 1 % (0-1); MONOCYTES % (MANUAL) 6 % (3-13); SEGMENTED NEUTROPHILS % (MAN) 81 % (42-78); TOTAL CELLS COUNTED 100
[2020-10-07 17:27] LABS: ANISOCYTOSIS 1+; OVALOCYTES SLIGHT; PLATELET COMMENT ADEQUATE; POIKILOCYTOSIS SLIGHT; TARGET CELLS SLIGHT
[2020-10-07] MEDS ORDERED: HYDROMORPHONE HCL INJ/PF 2 MG/ML AMPULE IV ONE (20:40)
[2020-10-07] MEDS ORDERED: NORMAL SALINE 1000 ML 1,000 ML IV ONE (20:40)
[2020-10-07] MEDS ORDERED: ONDANSETRON HCL INJ/PF 4 MG/2 ML SDV IV ONE (20:40)
[2020-10-07 20:44] LABS: APPEARANCE,URINE CLOUDY; BILIRUBIN,URINE MODERATE (NEGATIVE); COLOR,URINE AMBER; GLUCOSE, URINE NEGATIVE (NEGATIVE); KETONES,URINE NEGATIVE (NEGATIVE); LEUKOCYTE ESTERASE,URINE NEGATIVE (NEGATIVE); NITRITE,URINE NEGATIVE (NEGATIVE); PROTEIN,URINE 30 mg/dL (NEGATIVE)
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
[2020-10-07 23:28] VITALS: BP 130/80
== END 2020-10-07 23:26 | disposition home or self-care (01) ==
LOC: ER 14:10
DX: C18.9 Malignant neoplasm of colon, unspecified (principal); C78.7 Secondary malignant neoplasm of liver and intrahepatic bile duct; E80.6 Other disorders of bilirubin metabolism; R53.1 Weakness; R10.9 Unspecified abdominal pain; R63.4 Abnormal weight loss; M54.9 Dorsalgia, unspecified; I10 Essential (primary) hypertension; Z88.6 Allergy status to analgesic agent
CPT/HCPCS: 99284; 96361; 96374; 96375; 36415; 85025; 80053; 81001; J1170; J2405; J7030

== ENCOUNTER 2020-10-15 15:16 | Emergency (ER) | payer MEDICAID ==
[2020-10-15] MEDS ORDERED: NORMAL SALINE 1000 ML 1,000 ML IV ONE (17:04)
[2020-10-15] MEDS ORDERED: HYDROMORPHONE HCL INJ/PF 2 MG/ML AMPULE IV ONE (17:05)
[2020-10-15 18:33] LABS: ABSOLUTE EOSINOPHILS # (AUTO) 0.1 10^3/uL (0.0-0.6); ABSOLUTE LYMPHOCYTES (AUTO) 2.7 10^3/uL (0.5-4.7); ABSOLUTE MONOCYTES (AUTO) 1.5 10^3/uL (0.1-1.4); ABSOLUTE NEUT (AUTO) 13.7 10^3/uL (1.7-8.2); BASOPHILS % (AUTO) 0.1 % (0-2); EOSINOPHILS % (AUTO) 0.5 % (0-6); HEMATOCRIT 36.6 % (37.9-51.0); HEMOGLOBIN 12.7 g/dL (13.5-17.0); LYMPHOCYTES % (AUTO) 15.1 % (13-45); MEAN CORPUSCULAR HEMOGLOBIN 34.5 pg (27.0-33.4); MEAN CORPUSCULAR HGB CONC 34.6 g/dL (32.0-36.0); MEAN CORPUSCULAR VOLUME 100 fl (80-97); MONOCYTES % (AUTO) 8.2 % (3-13); PLATELET COUNT 263 10^3/uL (150-450); RED BLOOD COUNT 3.67 10^6/uL (4.35-5.55); RED CELL DISTRIBUTION WIDTH 17.3 % (11.5-14.0); SEGMENTED NEUTROPHILS % (AUTO) 76.1 % (42-78); TOTAL CELLS COUNTED % (AUTO) 100 %; WHITE BLOOD COUNT 18.1 10^3/uL (4.0-10.5)
[2020-10-15 18:51] LABS: ALKALINE PHOSPHATASE 843 U/L (38-126); ANION GAP 9 (5-19); ASPARTATE AMINO TRANSFERASE 141 U/L (17-59); BLOOD UREA NITROGEN 24 mg/dL (7-20); CALCIUM 9.7 mg/dL (8.4-10.2); CARBON DIOXIDE 20 mmol/L (22-30); CHLORIDE 103 mmol/L (98-107); GLUCOSE 105 mg/dL (75-110); POTASSIUM 3.6 mmol/L (3.6-5.0); TOTAL PROTEIN 6.8 g/dL (6.3-8.2)
[2020-10-15 19:02] LABS: BILIRUBIN,TOTAL 32.6 mg/dL (0.2-1.3)
[2020-10-15 19:07] LABS: BILIRUBIN,DIRECT 30.5 mg/dL (0.0-0.4)
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
[2020-10-15 19:50] VITALS: BP 135/76
== END 2020-10-15 19:58 | disposition home or self-care (01) ==
LOC: ER 15:16
DX: C18.9 Malignant neoplasm of colon, unspecified (principal); C79.9 Secondary malignant neoplasm of unspecified site; G89.3 Neoplasm related pain (acute) (chronic); E86.0 Dehydration; R17 Unspecified jaundice; R14.0 Abdominal distension (gaseous); I10 Essential (primary) hypertension; F17.200 Nicotine dependence, unspecified, uncomplicated; Z88.8 Allergy status to other drugs, medicaments and biological substances; Z91.013 Allergy to seafood; Z91.048 Other nonmedicinal substance allergy status
CPT/HCPCS: 99284; 96361; 96374; 36415; 83690; 85025; 80053; J1170; J7030